=== PATIENT | male | born 1965 | race Caucasian/White ===

== ENCOUNTER 2016-09-28 13:18 | Emergency (ER) | payer OTHER ==
[2016-09-28] MEDS ORDERED: Albuterol/Ipratropium NEB.SOL* Albuterol 2.5 MG/Ipratropium 0.5 MG 3 ML ONE (13:51)
[2016-09-28] MEDS ORDERED: predniSONE TAB* 20 MG PO ONE (13:53)
[2016-09-28] MEDS ORDERED: Albuterol/Ipratropium NEB.SOL* Albuterol 2.5 MG/Ipratropium 0.5 MG 3 ML INH ONE ×2 (13:54→14:28)
--- NOTE | 2016-09-28 14:06 | ED ---
Susan Mendoza Alfonso, scribed for Zora Quintero MD on 09/28/16 at 1338 . Shortness of Breath - HPI Summary HPI Summary: This patient is a 50 year old M presenting to [facility] with a chief complaint of SOB since two weeks ago. Pt states has COPD and is out of his mdi and his nebulizer is not functioning and he has been unable to get an Rx from PCP for a new one. The patient rates the pain 0/10 in severity. Symptoms aggravated by getting sick and alleviated by nothing. Patient reports productive coughing ( clear phlegm), and sore throat (scratchy). Patient denies fever. He states he is out of inhaler medication and was not able to get a nebulizer prescription due to PCP scheduling problems. Pt denies cp, abd pain. No nausea, vomiting, diarrhea. PMHx of COPD. Patients medication reviewed this visit. - History of Current Complaint Chief Complaint: EDShortnessOfBreath Time Seen by Provider: 09/28/16 13:28 Hx Obtained From: Patient Onset/Duration: Sudden Onset, Lasting Weeks - 2, Still Present Timing: Constant Current Severity: Moderate Alleviating Factors: Nothing Associated Signs & Symptoms: Cough (Productive) - Allergy/Home Medications Allergies/Adverse Reactions: Allergies Allergy/AdvReac Type Severity Reaction Status Date / Time Milk-related Compounds Allergy Severe Anaphylatic Verified 09/28/16 13:21 Shock Penicillins Allergy Unknown Unknown Verified 09/28/16 13:21 Reaction Details Bee Venom Allergy Anaphylatic Verified 09/28/16 13:21 Shock PMH/Surg Hx/FS Hx/Imm Hx Previously Healthy: Yes Endocrine/Hematology History: Denies: Hx Anticoagulant Therapy, Hx Diabetes, Hx Thyroid Disease Cardiovascular History: Denies: Hx Hypertension, Hx Pacemaker/ICD Respiratory History: Reports: Hx Asthma, Hx Chronic Obstructive Pulmonary Disease (COPD) GI History: Reports: Other GI Disorders History: Denies: Hx Renal Disease Neurological History: Denies: Hx Dementia, Hx Seizures Psychiatric History: Denies: Hx Substance Abuse - Immunization History Date of Tetanus Vaccine: UTD Infectious Disease History: Denies: Hx Hepatitis, Hx Human Immunodeficiency Virus (HIV), Traveled Outside the [place] in Last 30 Days - Family History Known Family History: Positive: Cardiac Disease - Social History Occupation: Unemployed Lives: With Family Alcohol Use: Occasionally Hx Substance Use: No Substance Use Type: Reports: None Hx Tobacco Use: Yes Smoking Status (MU): Former Smoker - Quit 7 months ago per 09/28/16 Review of Systems Negative: Fever Eyes: Negative Positive: Sore Throat Cardiovascular: Negative Positive: Shortness Of Breath, Cough - productive Gastrointestinal: Negative Genitourinary: Negative Musculoskeletal: Negative Skin: Negative Neurological: Negative Psychological: Normal All Other Systems Reviewed And Are Negative: Yes Physical Exam Triage Information Reviewed: Yes Vital Signs On Initial Exam: Initial Vitals Temp Pulse Resp BP Pulse Ox 97.4 F 84 20 131/100 96 09/28/16 13:21 09/28/16 13:21 09/28/16 13:21 09/28/16 13:21 09/28/16 13:21 Vital Signs Reviewed: Yes Appearance: Positive: Well-Appearing, No Pain Distress, Well-Nourished Skin: Positive: Warm Head/Face: Positive: Normal Head/Face Inspection Eyes: Positive: Normal, EOMI, ZENA ENT: Positive: Hearing grossly normal, Nasal congestion, TMs normal Neck: Positive: Supple, Nontender, No Lymphadenopathy Respiratory/Lung Sounds: Positive: Breath Sounds Present, Wheezes - scattered wheeze, speaking full sentences, no retractions Cardiovascular: Positive: Normal, RRR, Murmur Abdomen Description: Positive: Nontender, No Organomegaly, Soft Bowel Sounds: Positive: Present Musculoskeletal: Positive: Normal Neurological: Positive: Normal, Sensory/Motor Intact, Alert, Oriented to Person Place, Time Psychiatric: Positive: Normal AVPU Assessment: Alert - Dale Coma Scale Best Eye Response: 4 - Spontaneous Best Motor Response: 6 - Obeys Commands Best Verbal Response: 5 - Oriented Diagnostics - Vital Signs Vital Signs Temp Pulse Resp BP Pulse Ox 09/28/16 13:21 97.4 F 84 20 131/100 96 - Laboratory Lab Statement: Any lab studies that have been ordered have been reviewed, and results considered in the medical decision making process. - Radiology CXR Radiology Interpretation Completed By: Radiologist - Stigmata of obstructive lung disease. No acute pulmonary or cardiac process evident. - EKG 1343 Cardiac Rate: NL - BPM 73 EKG Rhythm: Sinus Rhythm EKG Interpretation: NAD Re-Evaluation - Re-Evaluation First Eval Re-Evaluation Time: 14:30 Change: Improved - Pt markedly improved. No wheeze states feels better will d/c with Rx pred, MDI, nebulizer Course/Dx - Course Assessment/Plan: Pt presents with wheeze, cough with yellow sputum and request for medication refill albuterol MDI. Pt with diffuse wheezing on exam, but otherwise well appearing. Will give nebs. cxr. pred. reassess - Diagnoses Provider Diagnoses: COPD (chronic obstructive pulmonary disease) Discharge - Discharge Plan Condition: Stable Disposition: HOME Prescriptions: Albuterol 2.5MG/3ML (0.083%)* [Ventolin 2.5 MG/3 ML NEB.JAYDON*] 2.5 mg INH Q4H # 30 neb.jaydon Albuterol HFA INHALER* [Ventolin HFA Inhaler*] 1 puff INH Q4H PRN #1 mdi PRN Reason: wheeze Nebulizers [Nebulizer] 1 mis INH Q6HR #1 mis Nebulizers [Nebulizer] 1 mis INH Q6HR #1 mis predniSONE TAB* [Deltasone TAB*] 50 mg PO DAILY #4 tab Patient Education Materials: COPD (Chronic Obstructive Pulmonary Disease) (ED) Referrals: Venkat Fabian MD [Primary Care Provider] - Additional Instructions: - Stay well hydrated. Drink plenty of non-alcoholic, non-caffinated beverages - Take prednisone once daily as prescribed starting tomorrow - Use albuterol (nebulizer or puffer/inhaler) every 4 hours as needed for wheezing - Schedule a follow-up appointment with your primary doctor or your new provider. Call your doctor or return with questions or concerns The documentation as recorded by the Susan myers Alfonso accurately reflects the service I personally performed and the decisions made by , Zora Quintero MD.
--- NOTE | 2016-09-28 14:35 | RAD ---
INDICATION: 2 months productive cough. Shortness of breath. History of tobacco use. COMPARISON: January 27, 2016 chest radiograph and May 23, 2015 CT. TECHNIQUE: Dual energy PA and routine lateral views of the chest were obtained. REPORT: Mildly increased lung volumes. Patchy rarefaction of the mid to upper lung zone interstitial markings corresponding with emphysema on prior CT. No alveolar consolidation, focal pulmonary lesion, pleural effusion, pneumothorax. The heart, pulmonary vasculature, and mediastinal contours are unremarkable. Mild thoracic degenerative spondylosis. No suspicious focal osseous lesions evident. IMPRESSION: Stigmata of obstructive lung disease. No acute pulmonary or cardiac process evident.
[2016-09-28 15:28] VITALS: BP 119/79
== END 2016-09-28 15:30 | disposition home or self-care (01) ==
LOC: ED 13:18
DX: J44.9 Chronic obstructive pulmonary disease, unspecified (principal); R06.02 Shortness of breath; R05 Cough; J02.9 Acute pharyngitis, unspecified; Z87.09 Personal history of other diseases of the respiratory system; Z87.891 Personal history of nicotine dependence
CPT/HCPCS: 71020; 93005; 99282; A9270-GY; J7512

== ENCOUNTER 2016-11-06 16:31 | Emergency (ER) | payer OTHER ==
[2016-11-06] MEDS ORDERED: Ibuprofen TAB* 600 MG PO ONE (17:37)
[2016-11-06 18:34] VITALS: BP 127/78
--- NOTE | 2016-11-06 18:42 | ED ---
Throat Pain/Nasal Congestion - HPI Summary HPI Summary: 50M presents with left upper dental pain for 2 days. He denies any fever. He denies any swelling around his eyes. He denies any pain with eye movement. denies any fever. has been taking ibuprofen without relief. has not seen dentist in 10 years. - History of Current Complaint Chief Complaint: UCDentalProblem Time Seen by Provider: 11/06/16 18:33 - Allergies/Home Medications Allergies/Adverse Reactions: Allergies Allergy/AdvReac Type Severity Reaction Status Date / Time Milk-related Compounds Allergy Severe Anaphylatic Verified 11/06/16 16:45 Shock Penicillins Allergy Unknown Unknown Verified 11/06/16 16:45 Reaction Details Bee Venom Allergy Anaphylatic Verified 11/06/16 16:45 Shock PMH/Surg Hx/FS Hx/Imm Hx Endocrine/Hematology History: Denies: Hx Anticoagulant Therapy, Hx Diabetes, Hx Thyroid Disease Cardiovascular History: Denies: Hx Hypertension, Hx Pacemaker/ICD Respiratory History: Reports: Hx Asthma, Hx Chronic Obstructive Pulmonary Disease (COPD) GI History: Reports: Other GI Disorders History: Denies: Hx Renal Disease Neurological History: Denies: Hx Dementia, Hx Seizures Psychiatric History: Denies: Hx Substance Abuse - Immunization History Date of Tetanus Vaccine: UTD Infectious Disease History: No Infectious Disease History: Denies: Hx Hepatitis, Hx Human Immunodeficiency Virus (HIV), Traveled Outside the [place] in Last 30 Days - Family History Known Family History: Positive: Cardiac Disease - Social History Alcohol Use: None Hx Substance Use: No Substance Use Type: Reports: None Hx Tobacco Use: Yes Smoking Status (MU): Current Every Day Smoker Type: Cigarettes Review of Systems Positive: Dental Pain Negative: Chest Pain Negative: Shortness Of Breath All Other Systems Reviewed And Are Negative: Yes Physical Exam Triage Information Reviewed: Yes Vital Signs On Initial Exam: Initial Vitals Temp Pulse Resp BP Pulse Ox 97.5 F 76 18 130/80 99 11/06/16 16:42 11/06/16 16:42 11/06/16 16:42 11/06/16 16:42 11/06/16 16:42 Vital Signs Reviewed: Yes Appearance: Positive: Pain Distress Skin: Positive: Warm, Dry Head/Face: Positive: Normal Head/Face Inspection Eyes: Positive: Normal, EOMI, ZENA, Conjunctiva Clear ENT: Positive: Normal ENT inspection, Pharynx normal, TMs normal Dental: Positive: Percussion Tenderness @ - 16, Abscess @ - 16 Neck: Positive: Supple, Nontender, No Lymphadenopathy Respiratory/Lung Sounds: Positive: Clear to Auscultation, Breath Sounds Present Cardiovascular: Positive: Normal, RRR Diagnostics - Vital Signs Vital Signs Temp Pulse Resp BP Pulse Ox 11/06/16 18:29 98.0 F 65 16 127/78 96 11/06/16 16:42 97.5 F 76 18 130/80 99 - Laboratory Lab Statement: Any lab studies that have been ordered have been reviewed, and results considered in the medical decision making process. EENT Course/Dx - Course Course Of Treatment: 50M presents with left upper dental pain for 2 days. He denies any fever. He denies any swelling around his eyes. He denies any pain with eye movement. denies any fever. has been taking ibuprofen without relief. has not seen dentist in 10 years. on exam has abscess at 16. the area is not fluctant so can not be drained at this time. will place on clindamycin and gave pain medication. medications reviewed. will have follow up with primary about blood pressure. patient understands and agrees with plan. - Differential Diagnoses Differential Diagnoses: Dental Abscess, Dental Caries, Fractured Tooth - Diagnoses Provider Diagnoses: Dental abscess Discharge - Discharge Plan Condition: Good Disposition: HOME Prescriptions: Clindamycin HCl [Clindamycin 150 MG CAP*] 300 mg PO TID #60 cap oxyCODONE/Acetamin 5/325 MG* [Percocet 5/325 TAB*] 1 tab PO Q6H PRN #12 tab MDD 4 PRN Reason: Pain Patient Education Materials: Dental Abscess (ED) Referrals: Venkat Fabian MD [Primary Care Provider] - Additional Instructions: take antibiotics 3 tablets three times a day for 10 days Use normal pain medication Avoid hard, crunchy food until seen by dentist Return to ED if develop fever, shortness of breath, pain with eye movement Establish care with primary care physician and dentist as soon as possible Images - Images Dental: 1 - dental abscess
[2016-11-06] MEDS ORDERED: Clindamycin CAP* 150 MG PO ONE (18:53)
== END 2016-11-06 18:57 | disposition home or self-care (01) ==
LOC: UCEAST 16:31
DX: K04.7 Periapical abscess without sinus (principal); J44.9 Chronic obstructive pulmonary disease, unspecified; Z88.0 Allergy status to penicillin; F17.210 Nicotine dependence, cigarettes, uncomplicated
CPT/HCPCS: 99212; A9270-GY; G0463

== ENCOUNTER 2017-11-02 09:47 | Emergency (ER) | payer OTHER ==
--- NOTE | 2017-11-02 11:23 | RAD ---
INDICATION: Cough. COMPARISON: Comparison is made with a prior study from September 28, 2016. Correlation is also made with a prior study from September 28, 2016. TECHNIQUE: Dual-energy PA and lateral views of the chest were obtained. FINDINGS: The heart is within normal limits in size. Mediastinal and hilar contours appear within normal limits. There is a patchy infiltrate in the right lower lobe suggestive of pneumonia. In addition there is an 8 mm nodular density which projects lateral to the right hilum. This is not seen on the prior chest x-ray study. The results of this exam were discussed with referring clinician. IMPRESSION: 1. POSSIBLE PULMONARY NODULE IN THE RIGHT LUNG LATERAL TO THE RIGHT HILUM. RECOMMEND A CT OF THE CHEST WITH CONTRAST FOR FURTHER EVALUATION. 2. SMALL RIGHT LOWER LOBE INFILTRATES SUGGESTIVE OF PNEUMONIA.
[2017-11-02] MEDS ORDERED: Albuterol/Ipratropium NEB.SOL* Albuterol 2.5 MG/Ipratropium 0.5 MG 3 ML INH ONE ×2 (11:37→11:38)
[2017-11-02] MEDS ORDERED: Azithromycin IV(*) 500 MG in NS 0.9% 250 ML* 250 ML IVPB ONE (11:37)
[2017-11-02] MEDS ORDERED: methylPREDNISolone 125 MG* 2 ML VIAL IV ONE (11:37)
[2017-11-02] MEDS ORDERED: cefTRIAXone(*) 2 GM in NS 0.9% 100 ML* 100 ML IVPB ONE (11:37)
[2017-11-02] MEDS ORDERED: Ibuprofen TAB* 600 MG PO ONE (11:53)
[2017-11-02 12:13] LABS: Hematocrit 46 % (42-52); Hemoglobin 16.1 g/dl (14.0-18.0); Mean Corpuscular HGB Conc 35 g/dl (31-36); Mean Corpuscular Hemoglobin 32 pg (27-31); Mean Corpuscular Volume 92 fL (80-94); Mean Platelet Volume 8.4 um3 (7.4-10.4); Platelet Count 223 10^3/ul (150-450); Red Blood Count 5.04 10^6/ul (4.00-5.40); Red Cell Distribution Width 13 % (10.5-15); White Blood Count 15.3 10^3/ul (3.5-10.8)
--- NOTE | 2017-11-02 12:16 | ED ---
Influenza-Like Illness - HPI Summary HPI Summary: This patient is a 51 year old M presenting to [facility] accompanied by his with a chief complaint of diffuse myalgia and cramping since 10/30/17. He endorses arthralgia, weakness, fatigue, hypersomnia, chills, diaphoresis, productive cough (clear/yellow sputum), a resolved sore throat, SOB, back pain, rhinorrhea (for 2 weeks), and a diffuse erythematous rash, which he attributes to a flea infestation in his house. Pt endorses drinking 1 gallon of water a day with no sx alleviation. He denies fever, CP, ear ache, abd pain, urinary sx , recent significant weight change, and recent exposure to ill people. PMHx COPD ; he endorses using his inhaler 20x a day since sx onset, but usually only uses it 4 or 5x a day before sx onset. Pt smokes. He denies having received his flu shot yet this year, and denies PMHx PE and DVT. - History of Current Complaint Chief Complaint: EDGeneral Time Seen by Provider: 11/02/17 10:49 Hx Obtained From: Patient Onset/Duration: Sudden Onset, Lasting Days, Still Present Severity: Moderate Associated Signs & Symptoms: Myalgia, Cough, Sore Throat - resolved, Nasal Congestion - rhinorrhea Related Hx: Smoking - Allergy/Home Medications Allergies/Adverse Reactions: Allergies Allergy/AdvReac Type Severity Reaction Status Date / Time MS Milk-related Compounds Allergy Severe Anaphylatic Verified 11/02/17 10:13 [Milk-related Compounds] Shock MS Penicillins [Penicillins] Allergy Unknown Unknown Verified 11/02/17 10:13 Reaction Details MS Bee Venom Allergy Anaphylatic Verified 11/02/17 10:13 Shock PMH/Surg Hx/FS Hx/Imm Hx Endocrine/Hematology History: Denies: Hx Anticoagulant Therapy, Hx Diabetes, Hx Thyroid Disease Cardiovascular History: Denies: Hx Hypertension, Hx Pacemaker/ICD Respiratory History: Reports: Hx Asthma, Hx Chronic Obstructive Pulmonary Disease (COPD) GI History: Reports: Other GI Disorders History: Denies: Hx Renal Disease Sensory History: Reports: Hx Contacts or Glasses Denies: Hx Legally Blind, Hx Deafness Opthamlomology History: Reports: Hx Contacts or Glasses Denies: Hx Legally Blind EENT History: Denies: Hx Deafness Neurological History: Denies: Hx Dementia, Hx Seizures Psychiatric History: Denies: Hx Schizophrenia, Hx Substance Abuse - Immunization History Date of Tetanus Vaccine: UTD Immunizations Up to Date: Yes Infectious Disease History: No Infectious Disease History: Denies: Hx Hepatitis, Hx Human Immunodeficiency Virus (HIV), Traveled Outside the [place] in Last 30 Days - Family History Known Family History: Positive: Cardiac Disease - Social History Lives: With Family Alcohol Use: None Hx Substance Use: No Substance Use Type: Reports: None Hx Tobacco Use: Yes Smoking Status (MU): Current Every Day Smoker Type: Cigarettes Review of Systems Positive: Chills, Fatigue - w/ hypersomnia, Skin Diaphoresis. Negative: Fever Negative: Erythema Positive: Sore Throat - resolved. Negative: Ear Ache Negative: Chest Pain Positive: Shortness Of Breath, Cough - productive Negative: Abdominal Pain, Vomiting, Nausea Negative: dysuria, hematuria Positive: Arthralgia, Myalgia. Negative: Edema Positive: Rash - from fleas Neurological: Other - NEGATIVE: Dizziness Positive: Weakness All Other Systems Reviewed And Are Negative: Yes Physical Exam - Summary Physical Exam Summary: Constitutional: Well-developed, Well-nourished, Alert. (-) Distressed. Temperature 99.6 in room. Skin: Warm, Dry. Small punctate red rolon on his arms and legs which he attributes to fleas. HENT: Normocephalic; Atraumatic Eyes: Conjunctiva normal Neck: Musculoskeletal ROM normal neck. (-) JVD, (-) Stridor, (-) Tracheal deviation Cardio: Rhythm regular, rate normal, Heart sounds normal; Intact distal pulses; The pedal pulses are 2+ and symmetric. Radial pulses are 2+ and symmetric. (-) Murmur Pulmonary/Chest wall: Effort normal. (-) Respiratory distress, (-) Wheezes, (-) Rales. Diminished breath sounds bilaterally. Abd: Soft, (-) epigastric tenderness, (-) Distension, (-) Guarding, (-) Rebound Musculoskeletal: (-) Edema Lymph: (-) Cervical adenopathy Neuro: Alert, Oriented x3 Psych: Mood and affect Normal Triage Information Reviewed: Yes Vital Signs On Initial Exam: Initial Vitals Temp Pulse Resp BP Pulse Ox 97.9 F 91 19 119/76 99 11/02/17 09:56 11/02/17 09:56 11/02/17 09:56 11/02/17 09:56 11/02/17 09:56 Vital Signs Reviewed: Yes Diagnostics - Vital Signs Vital Signs Temp Pulse Resp BP Pulse Ox 11/02/17 12:00 81 91 11/02/17 11:09 80 24 112/81 93 11/02/17 11:03 13 11/02/17 10:39 84 22 119/84 93 11/02/17 10:09 88 22 132/83 92 11/02/17 10:08 7 11/02/17 09:56 97.9 F 91 19 119/76 99 - Laboratory Lab Results: Lab Results 11/02/17 Range/Units 11:07 Influenza A (Rapid) Negative (Negative) Influenza B (Rapid) Negative (Negative) Result Diagrams: 11/02/17 11:37 11/02/17 11:37 Lab Statement: Any lab studies that have been ordered have been reviewed, and results considered in the medical decision making process. - Radiology CXR Xray Interpretation: Positive (See Comments) Radiology Interpretation Completed By: Radiologist - 1. POSSIBLE PULMONARY NODULE IN THE RIGHT LUNG LATERAL TO THE RIGHT HILUM. RECOMMEND A CT OF THE CHEST WITH CONTRAST FOR FURTHER EVALUATION. 2. SMALL RIGHT LOWER LOBE INFILTRATES SUGGESTIVE OF PNEUMONIA. Dr. Hernandez has reviewed this report. - CT Chest CT Interpretation: Positive (See Comments) CT Interpretation Completed By: Radiologist - 1. PATCHY NODULAR INFILTRATES IN THE RIGHT UPPER, MIDDLE AND LOWER LOBES MOST CONSISTENT WITH PNEUMONIA. 2. A COMPONENT OF THE INFILTRATE APPEARS TO ACCOUNT FOR THE NODULAR DENSITY NOTED ON THE PRIOR CHEST X-RAY STUDY. RECOMMEND FOLLOW UP CHEST X-RAY STUDIES TO RESOLUTION. 3. MULTIPLE SMALL PULMONARY NODULES UNCHANGED. RECOMMEND A FOLLOW- UP LOW-DOSE NONCONTRAST CT OF THE CHEST IN ONE YEARS TIME. 4. MILD TO MODERATE EMPHYSEMATOUS CHANGE. Dr. Hernandez has reviewed this report. Flu Symptom Course/Dx - Course Course Of Treatment: A 51-year-old M presents to the ED with a CC of flu-like sx for 3 days. (+) diffuse myalgia, diffuse cramping, arthralgia, weakness, fatigue, hypersomnia, chills, diaphoresis, cough, SOB, back pain, rhinorrhea ( for 2 weeks), and a diffuse erythematous rash, which he attributes to a flea infestation in his house. (-) fever, CP, ear ache, abd pain, urinary sx, recent significant weight change, and recent exposure to ill people. PMHx COPD, asthma. Denies flu shot this year. He notes using his inhaler 20x a day since sx onset, whereas he usually uses it 4 to 5 times a day. A CXR reveals 1. POSSIBLE PULMONARY NODULE IN THE RIGHT LUNG LATERAL TO THE RIGHT HILUM. 2. SMALL RIGHT LOWER LOBE INFILTRATES SUGGESTIVE OF PNEUMONIA. A CT chest revealed 1. PATCHY NODULAR INFILTRATES IN THE RIGHT UPPER, MIDDLE AND LOWER LOBES MOST CONSISTENT WITH PNEUMONIA. 2. A COMPONENT OF THE INFILTRATE APPEARS TO ACCOUNT FOR THE NODULAR DENSITY NOTED ON THE PRIOR CHEST X-RAY STUDY. RECOMMEND FOLLOW UP CHEST X-RAY STUDIES TO RESOLUTION. 3. MULTIPLE SMALL PULMONARY NODULES UNCHANGED. RECOMMEND A FOLLOW-UP LOW-DOSE NONCONTRAST CT OF THE CHEST IN ONE YEARS TIME. 4. MILD TO MODERATE EMPHYSEMATOUS CHANGE. In the ED course, pt was given Azithromycin, solu-medrol, ibuprofen, ceftriaxone sodium, and albuterol. Pt's labs were nl except for high WBC, high MCH, low Na+, and low Cl-. Pt was (- ) for influenza. Ambulated, maintained sats at 91 %, dx community acquired PNA , f/u with care connections 1-2 days. - Diagnoses Provider Diagnoses: Community acquired pneumonia Discharge - Sign-Out/Discharge Documenting (check all that apply): Patient Departure - discharge - Discharge Plan Condition: Stable Disposition: HOME Patient Education Materials: Community Acquired Pneumonia (ED) Additional Instructions: Follow up with care connections in 1-2 days. Return to the emergency department for any new or worsening symptoms. - Attestation Statements Document Initiated by Scribe: Yes Documenting Scribe: Raheel Parker Provider For Whom Kendalle is Documenting (Include Credential): Dr. Sahil Hernandez MD Scribe Attestation: Raheel Mendoza scribed for Dr. Sahil Hernandez MD on 11/02/17 at 1606.
[2017-11-02 12:32] LABS: EGFR Non-African American 82.6 (>60)
[2017-11-02] MEDS ORDERED: Iohexol 300* (CONTRAST) 10 ML SDV IV ONE (13:13)
--- NOTE | 2017-11-02 14:13 | RAD ---
INDICATION: Lung mass, shortness of breath. COMPARISON: Comparison is made with a prior CT of the chest from December 31, 2016 and a prior chest x-ray study from November 02, 2017. TECHNIQUE: A CT scan of the chest was performed with intravenous contrast following intravenous injection of 80 ml of Omnipaque 300 nonionic contrast. Contiguous axial sections were obtained from the lung apices through the lung bases. Images were reconstructed in the coronal and sagittal planes. FINDINGS: LUNGS: There is mild/moderate centrilobular emphysematous change. There are scattered small pulmonary nodules measuring up to 3 mm in size which are unchanged from the prior exam. In addition there is a patchy nodular infiltrate involving the right upper, middle and lower lobes most consistent with pneumonia. The nodular component of the infiltrate likely accounts for the nodular density noted on the prior chest x-ray study. No pleural effusion is present. MEDIASTINUM: No significant enlarged mediastinal or hilar lymph nodes are seen. There is a small hiatal hernia. HEART: The heart is within normal limits in size. No pericardial effusion is present. THORACIC AORTA: The thoracic aorta is normal in caliber. There is mild calcific plaque present. ABDOMEN: No acute findings are seen on the visualized portion of the upper abdomen. There is fatty infiltration of the liver. BONES: No significant focal osseous abnormality is seen. IMPRESSION: 1. PATCHY NODULAR INFILTRATES IN THE RIGHT UPPER, MIDDLE AND LOWER LOBES MOST CONSISTENT WITH PNEUMONIA. 2. A COMPONENT OF THE INFILTRATE APPEARS TO ACCOUNT FOR THE NODULAR DENSITY NOTED ON THE PRIOR CHEST X-RAY STUDY. RECOMMEND FOLLOW UP CHEST X-RAY STUDIES TO RESOLUTION. 3. MULTIPLE SMALL PULMONARY NODULES UNCHANGED. RECOMMEND A FOLLOW-UP LOW-DOSE NONCONTRAST CT OF THE CHEST IN ONE YEARS TIME. 4. MILD TO MODERATE EMPHYSEMATOUS CHANGE.
[2017-11-02 16:32] VITALS: BP 118/71
== END 2017-11-02 16:30 | disposition home or self-care (01) ==
LOC: ED 09:47
DX: J18.9 Pneumonia, unspecified organism (principal); R91.8 Other nonspecific abnormal finding of lung field; J44.9 Chronic obstructive pulmonary disease, unspecified; F17.210 Nicotine dependence, cigarettes, uncomplicated; Z88.0 Allergy status to penicillin
CPT/HCPCS: 36415; 71046; 71260; 80053; 83605; 85027; 87040; 96365; 96366; 96375; 99284; A9270-GY; J0456; J0696; J2930; Q9967

== ENCOUNTER → 2018-02-18 00:20 | Emergency (ER) | payer OTHER ==
[~2018-02-18 00:20] MED LIST: Albuterol/Ipratropium NEB.SOL* Albuterol 2.5 MG/Ipratropium 0.5 MG 3 ML INH ONE; Albuterol/Ipratropium NEB.SOL* Albuterol 2.5 MG/Ipratropium 0.5 MG 3 ML ONE; Dexamethasone IV* 4 MG/ML 1 ML (4 MG) IM ONE; Dexamethasone IV* 4 MG/ML 5 ML VIAL (20 MG) ONE
[2018-02-18 01:17] LABS: ABS Basophils 0.1 10^3/ul (0-0.2); ABS Eosinophils 0.3 10^3/ul (0-0.6); ABS Lymphocytes 1.3 10^3/ul (1.0-4.8); ABS Monocytes 0.6 10^3/ul (0-0.8); ABS Neutrophils 5.7 10^3/ul (1.5-7.7); ABS Nucleated RBC 0 10^3/ul; Eosinophil % 3.7 %; Hematocrit 46 % (42-52); Hemoglobin 15.6 g/dl (14.0-18.0); Lymphocyte % 16.7 %; Mean Corpuscular HGB Conc 34 g/dl (31-36); Mean Corpuscular Hemoglobin 31 pg (27-31); Mean Corpuscular Volume 92 fL (80-94); Nucleated Red Blood Cells % 0.1; Platelet Count 211 10^3/ul (150-450); Red Blood Count 5.01 10^6/ul (4.00-5.40); Red Cell Distribution Width 13 % (10.5-15); White Blood Count 7.9 10^3/ul (3.5-10.8)
[2018-02-18 01:33] LABS: Albumin 4.2 g/dL (3.2-5.2); Albumin/Globulin Ratio 1.8 (1-3); C Reactive Protein 3.77 mg/L (<8.01); Calcium 9.1 mg/dL (8.6-10.3); EGFR Non-African American 88.6 (>60); Globulin 2.4 g/dL (2-4); Total Bilirubin 0.3 mg/dL (0.2-1.0); Total Protein 6.6 g/dL (6.4-8.9)
[2018-02-18 01:56] VITALS: BP 125/75
[2018-02-18 01:58] LABS: Potassium 3.9 mmol/L (3.5-5.0)
--- NOTE | 2018-02-18 12:47 | ED ---
Shortness of Breath - HPI Summary HPI Summary: Patient is a 52-year-old male with a history of COPD, heavy smoker presenting to the ED with acute onset SOB approximate 2 hours QUALITY INTERN. He states he felt as if this were "an allergic reaction." He took a Benadryl without relief. He endorses dysphasia, but denies any odynophagia. He states he has been drinking well, but has not tried to eat. He denies any fevers, sweats, chills. He has been seen in the ED for this multiple times in the past for generalized SOB. He has been using his at home nebulizer treatments and albuterol inhaler without relief so decided to come to the ED for further evaluation. He states he has not been sick otherwise. Approximately 1 hour QUALITY INTERN he lied down to go to sleep and immediately felt SOB and a tightness in his throat. After nebulizer treatment and Benadryl did not improve his symptoms, he came to the ED. He is feeling slightly improved on arrival, however continues to be SOB. He is currently not on antibiotics or steroids. He denies any other symptoms including chest pain. Denies cough, calf pain, edema. Denies any recent travel. No history of DVT or PE. - History of Current Complaint Chief Complaint: EDShortnessOfBreath Time Seen by Provider: 02/18/18 00:36 Hx Obtained From: Patient Onset/Duration: Sudden Onset Timing: Constant Current Severity: Moderate Dyspnea At: Rest Aggrevating Factors: Deep Breaths, Recumbent Position Alleviating Factors: Upright Position, Spontaneous Resolution - Risk Factors Pulmonary Embolism: Negative Cardiac: Negative Pseudomonas: Negative Tuberculosis: Negative - Allergy/Home Medications Allergies/Adverse Reactions: Allergies Allergy/AdvReac Type Severity Reaction Status Date / Time MS Milk-related Compounds Allergy Severe Anaphylatic Verified 02/18/18 00:32 [Milk-related Compounds] Shock MS Penicillins [Penicillins] Allergy Unknown Unknown Verified 02/18/18 00:32 Reaction Details MS Bee Venom Allergy Anaphylatic Verified 02/18/18 00:32 Shock PMH/Surg Hx/FS Hx/Imm Hx Previously Healthy: Yes Endocrine/Hematology History: Denies: Hx Anticoagulant Therapy, Hx Diabetes, Hx Thyroid Disease Cardiovascular History: Denies: Hx Hypertension, Hx Pacemaker/ICD Respiratory History: Reports: Hx Asthma, Hx Chronic Obstructive Pulmonary Disease (COPD) GI History: Reports: Other GI Disorders History: Denies: Hx Renal Disease Sensory History: Reports: Hx Contacts or Glasses Denies: Hx Legally Blind, Hx Deafness Opthamlomology History: Reports: Hx Contacts or Glasses Denies: Hx Legally Blind Neurological History: Denies: Hx Dementia, Hx Seizures Psychiatric History: Denies: Hx Schizophrenia, Hx Substance Abuse - Immunization History Date of Tetanus Vaccine: UTD Hx Pertussis Vaccination: No Immunizations Up to Date: Yes Infectious Disease History: No Infectious Disease History: Denies: Hx Hepatitis, Hx Human Immunodeficiency Virus (HIV), Traveled Outside the [place] in Last 30 Days - Family History Known Family History: Positive: Cardiac Disease - Social History Occupation: Employed Full-time Lives: With Family Alcohol Use: None Hx Substance Use: No Substance Use Type: Reports: None Hx Tobacco Use: Yes Smoking Status (MU): Current Every Day Smoker Type: Cigarettes Review of Systems Negative: Fever, Chills, Fatigue, Skin Diaphoresis Negative: Dental Pain, Sore Throat Negative: Palpitations, Chest Pain Positive: Shortness Of Breath. Negative: Cough Genitourinary: Negative Positive: no symptoms reported, see HPI Negative: Myalgia Skin: Negative All Other Systems Reviewed And Are Negative: Yes Physical Exam Triage Information Reviewed: Yes Vital Signs On Initial Exam: Initial Vitals Temp Pulse Resp BP Pulse Ox 98.3 F 102 18 107/80 95 02/18/18 00:30 02/18/18 00:30 02/18/18 00:30 02/18/18 00:30 02/18/18 00:30 Vital Signs Reviewed: Yes Appearance: Positive: Well-Appearing, Well-Nourished Skin: Positive: Warm, Skin Color Reflects Adequate Perfusion Head/Face: Positive: Normal Head/Face Inspection Eyes: Positive: EOMI, ZENA, Conjunctiva Clear Neck: Positive: Supple, No Lymphadenopathy Respiratory/Lung Sounds: Positive: Wheezes - bilaterally Cardiovascular: Positive: RRR, Pulses are Symmetrical in both Upper and Lower Extremities Musculoskeletal: Positive: Strength/ROM Intact Neurological: Positive: Speech Normal Psychiatric: Positive: Affect/Mood Appropriate AVPU Assessment: Alert Diagnostics - Vital Signs Vital Signs Temp Pulse Resp BP Pulse Ox 02/18/18 00:59 86 14 100 02/18/18 00:30 98.3 F 102 18 107/80 95 - Laboratory Lab Results: Lab Results 02/18/18 02/18/18 Range/Units 01:05 01:09 WBC 7.9 (3.5-10.8) 10^3/ul RBC 5.01 (4.00-5.40) 10^6/ul Hgb 15.6 (14.0-18.0) g/dl Hct 46 (42-52) % MCV 92 (80-94) fL MCH 31 (27-31) pg MCHC 34 (31-36) g/dl RDW 13 (10.5-15) % Plt Count 211 (150-450) 10^3/ul MPV 9.0 (7.4-10.4) fL Neut % (Auto) 71.3 % Lymph % (Auto) 16.7 % [place] % (Auto) 7.2 % Eos % (Auto) 3.7 % Baso % (Auto) 1.1 % Absolute Neuts (auto) 5.7 (1.5-7.7) 10^3/ul Absolute Lymphs (auto) 1.3 (1.0-4.8) 10^3/ul Absolute Monos (auto) 0.6 (0-0.8) 10^3/ul Absolute Eos (auto) 0.3 (0-0.6) 10^3/ul Absolute Basos (auto) 0.1 (0-0.2) 10^3/ul Absolute Nucleated RBC 0 10^3/ul Nucleated RBC % 0.1 Sodium 141 (135-145) mmol/L Potassium Pending Chloride 107 (101-111) mmol/L Carbon Dioxide 28 (22-32) mmol/L Anion Gap Pending BUN 18 (6-24) mg/dL Creatinine 0.90 (0.67-1.17) mg/dL Est GFR ( Amer) 107.2 (>60) Est GFR (Non-Af Amer) 88.6 (>60) BUN/Creatinine Ratio 20.0 (8-20) Glucose 123 H (70-100) mg/dL Calcium 9.1 (8.6-10.3) mg/dL Total Bilirubin 0.30 (0.2-1.0) mg/dL AST Pending ALT 29 (7-52) U/L Alkaline Phosphatase 53 (34-104) U/L C-Reactive Protein 3.77 (<8.01) mg/L Total Protein 6.6 (6.4-8.9) g/dL Albumin 4.2 (3.2-5.2) g/dL Globulin 2.4 (2-4) g/dL Albumin/Globulin Ratio 1.8 (1-3) Result Diagrams: 02/18/18 01:09 02/18/18 01:05 Lab Statement: Any lab studies that have been ordered have been reviewed, and results considered in the medical decision making process. Course/Dx - Course Course Of Treatment: On physical examination, patient is wheezing bilaterally, without rhonchorous sounds bilaterally. No pharyngeal erythema or swelling in the posterior pharynx. TMs without erythema. No rhinorrhea or conjunctival injection noted. DuoNeb given on arrival. Dexamethasone 10 mg IM given. Lab work obtained and is all WNL. Patient is feeling improved. He will be DC'd home with steroids 5 days. Chest x-ray obtained and read by myself, RIZWANA Gómez as no active acute cardiopulmonary disease. - Diagnoses Differential Diagnosis/HQI/PQRI: Positive: Bronchitis, Pneumonia Provider Diagnoses: Shortness of breath at rest Discharge - Sign-Out/Discharge Documenting (check all that apply): Patient Departure - Discharge Plan Condition: Stable Disposition: HOME Prescriptions: predniSONE TAB* [Deltasone TAB*] 50 mg PO DAILY #5 tab MDD 1 Patient Education Materials: COPD (Chronic Obstructive Pulmonary Disease) (ED) Referrals: Venkat Fabian MD [Primary Care Provider] - Additional Instructions: Prednisone once daily in the morning 5 days (start tomorrow AM) Nebulizer treatmennts as needed Albuterol inhaler as needed DO NOT SMOKE - Billing Disposition and Condition Condition: STABLE Disposition: Home
== END | disposition home or self-care (01) ==
LOC: ED 00:20
DX: R06.02 Shortness of breath (principal); J44.9 Chronic obstructive pulmonary disease, unspecified; F17.210 Nicotine dependence, cigarettes, uncomplicated
CPT/HCPCS: 36415; 71046; 80053; 85025; 86140; 96372; 96374; 99282; A9270-GY; J1100

== ENCOUNTER 2018-03-05 23:39 | Emergency (ER) | payer OTHER ==
[2018-03-06] MEDS ORDERED: predniSONE TAB* 20 MG PO ONE
[2018-03-06] MEDS ORDERED: Albuterol/Ipratropium NEB.SOL* Albuterol 2.5 MG/Ipratropium 0.5 MG 3 ML INH ONE
[2018-03-06 00:19] LABS: ABS Basophils 0.1 10^3/ul (0-0.2); ABS Eosinophils 0.3 10^3/ul (0-0.6); ABS Lymphocytes 1.4 10^3/ul (1.0-4.8); ABS Monocytes 0.6 10^3/ul (0-0.8); ABS Neutrophils 6.4 10^3/ul (1.5-7.7); ABS Nucleated RBC 0 10^3/ul; Eosinophil % 3.8 %; Hematocrit 47 % (42-52); Hemoglobin 16.2 g/dl (14.0-18.0); Lymphocyte % 15.6 %; Mean Corpuscular HGB Conc 34 g/dl (31-36); Mean Corpuscular Hemoglobin 32 pg (27-31); Mean Corpuscular Volume 92 fL (80-94); Mean Platelet Volume 8.4 fL (7.4-10.4); Nucleated Red Blood Cells % 0.1; Platelet Count 219 10^3/ul (150-450); Red Blood Count 5.12 10^6/ul (4.00-5.40); Red Cell Distribution Width 13 % (10.5-15); White Blood Count 8.7 10^3/ul (3.5-10.8)
[2018-03-06 00:33] LABS: Albumin 4.3 g/dL (3.2-5.2); Albumin/Globulin Ratio 1.7 (1-3); BUN/Creatinine Ratio 16.7 (8-20); C Reactive Protein 6.1 mg/L (<8.01); EGFR African American 99.5 (>60); EGFR Non-African American 82.3 (>60); Globulin 2.6 g/dL (2-4); Total Bilirubin 0.3 mg/dL (0.2-1.0); Total Protein 6.9 g/dL (6.4-8.9)
[2018-03-06] MEDS ORDERED: Benzonatate CAP* 100 MG PO ONE (00:52)
--- NOTE | 2018-03-06 01:23 | ED ---
Shortness of Breath - HPI Summary HPI Summary: Patient complains of progressive SOB with exertion and cough 3 days. History of COPD, no home O2, has nebulizers and inhalers at home. Denies fever, sore throat, SILVA, ear pain, CP, N/V/D, abdominal pain, change in urine, change in BM. Medical history COPD, asthma. Positive smoker. History of prior visit for same symptoms and 02/27/18. - History of Current Complaint Chief Complaint: EDShortnessOfBreath Time Seen by Provider: 03/05/18 23:52 Hx Obtained From: Patient Onset/Duration: Gradual Onset, Lasting Days Timing: Intermittent Episodes Lasting: Current Severity: Moderate Dyspnea At: Exertion Aggrevating Factors: Movement Associated Signs & Symptoms: Cough (Nonproductive) - Allergy/Home Medications Allergies/Adverse Reactions: Allergies Allergy/AdvReac Type Severity Reaction Status Date / Time MS Milk-related Compounds Allergy Severe Anaphylatic Verified 03/05/18 23:45 [Milk-related Compounds] Shock MS Penicillins [Penicillins] Allergy Unknown Unknown Verified 03/05/18 23:45 Reaction Details MS Bee Venom Allergy Anaphylatic Verified 03/05/18 23:45 Shock PMH/Surg Hx/FS Hx/Imm Hx Endocrine/Hematology History: Denies: Hx Anticoagulant Therapy, Hx Diabetes, Hx Thyroid Disease Cardiovascular History: Denies: Hx Hypertension, Hx Pacemaker/ICD Respiratory History: Reports: Hx Asthma, Hx Chronic Obstructive Pulmonary Disease (COPD) GI History: Reports: Other GI Disorders History: Denies: Hx Renal Disease Sensory History: Reports: Hx Contacts or Glasses Denies: Hx Legally Blind, Hx Deafness Opthamlomology History: Reports: Hx Contacts or Glasses Denies: Hx Legally Blind Neurological History: Denies: Hx Dementia, Hx Seizures Psychiatric History: Denies: Hx Schizophrenia, Hx Substance Abuse - Immunization History Date of Tetanus Vaccine: UTD Infectious Disease History: No Infectious Disease History: Denies: Hx Hepatitis, Hx Human Immunodeficiency Virus (HIV), Traveled Outside the [place] in Last 30 Days - Family History Known Family History: Positive: Cardiac Disease - Social History Alcohol Use: Rare Hx Substance Use: No Substance Use Type: Reports: None Hx Tobacco Use: Yes Smoking Status (MU): Current Every Day Smoker Type: Cigarettes Review of Systems Constitutional: Negative Eyes: Negative ENT: Negative Cardiovascular: Negative Positive: Shortness Of Breath, Cough Gastrointestinal: Negative Genitourinary: Negative Musculoskeletal: Negative Skin: Negative Neurological: Negative Psychological: Normal All Other Systems Reviewed And Are Negative: Yes Physical Exam Triage Information Reviewed: Yes Vital Signs On Initial Exam: Initial Vitals Temp Pulse Resp BP Pulse Ox 98.3 F 94 18 114/77 94 03/05/18 23:43 03/05/18 23:43 03/05/18 23:43 03/05/18 23:43 03/05/18 23:43 Vital Signs Reviewed: Yes Appearance: Positive: Well-Appearing Skin: Positive: Warm Head/Face: Positive: Normal Head/Face Inspection Eyes: Positive: Normal ENT: Positive: Normal ENT inspection Neck: Positive: Supple Respiratory/Lung Sounds: Positive: Wheezes - Bilaterally Cardiovascular: Positive: Normal Abdomen Description: Positive: Nontender Musculoskeletal: Positive: Normal Neurological: Positive: Normal Psychiatric: Positive: Normal AVPU Assessment: Alert - Dale Coma Scale Best Eye Response: 4 - Spontaneous Best Motor Response: 6 - Obeys Commands Best Verbal Response: 5 - Oriented Coma Scale Total: 15 Diagnostics - Vital Signs Vital Signs Temp Pulse Resp BP Pulse Ox 03/06/18 00:26 82 123/71 95 03/06/18 00:11 81 16 95 03/06/18 00:00 87 13 95 03/05/18 23:56 92 16 121/80 96 03/05/18 23:55 93 20 95 03/05/18 23:43 98.3 F 94 18 114/77 94 - Laboratory Lab Results: Lab Results 03/06/18 03/06/18 Range/Units 00:09 00:09 WBC 8.7 (3.5-10.8) 10^3/ul RBC 5.12 (4.00-5.40) 10^6/ul Hgb 16.2 (14.0-18.0) g/dl Hct 47 (42-52) % MCV 92 (80-94) fL MCH 32 H (27-31) pg MCHC 34 (31-36) g/dl RDW 13 (10.5-15) % Plt Count 219 (150-450) 10^3/ul MPV 8.4 (7.4-10.4) fL Neut % (Auto) 73.2 % Lymph % (Auto) 15.6 % [place] % (Auto) 6.7 % Eos % (Auto) 3.8 % Baso % (Auto) 0.7 % Absolute Neuts (auto) 6.4 (1.5-7.7) 10^3/ul Absolute Lymphs (auto) 1.4 (1.0-4.8) 10^3/ul Absolute Monos (auto) 0.6 (0-0.8) 10^3/ul Absolute Eos (auto) 0.3 (0-0.6) 10^3/ul Absolute Basos (auto) 0.1 (0-0.2) 10^3/ul Absolute Nucleated RBC 0 10^3/ul Nucleated RBC % 0.1 Sodium 139 (135-145) mmol/L Potassium 4.0 (3.5-5.0) mmol/L Chloride 105 (101-111) mmol/L Carbon Dioxide 27 (22-32) mmol/L Anion Gap 7 (2-11) mmol/L BUN 16 (6-24) mg/dL Creatinine 0.96 (0.67-1.17) mg/dL Est GFR ( Amer) 99.5 (>60) Est GFR (Non-Af Amer) 82.3 (>60) BUN/Creatinine Ratio 16.7 (8-20) Glucose 102 H (70-100) mg/dL Calcium 9.0 (8.6-10.3) mg/dL Total Bilirubin 0.30 (0.2-1.0) mg/dL AST 19 (13-39) U/L ALT 21 (7-52) U/L Alkaline Phosphatase 58 (34-104) U/L C-Reactive Protein 6.10 (<8.01) mg/L Total Protein 6.9 (6.4-8.9) g/dL Albumin 4.3 (3.2-5.2) g/dL Globulin 2.6 (2-4) g/dL Albumin/Globulin Ratio 1.7 (1-3) Result Diagrams: 03/06/18 00:09 03/06/18 00:09 Lab Statement: Any lab studies that have been ordered have been reviewed, and results considered in the medical decision making process. Course/Dx - Course Course Of Treatment: Patient complains of progressive SOB with exertion and cough 3 days. History of COPD, no home O2, has nebulizers and inhalers at home. Denies fever, sore throat, SILVA, ear pain, CP, N/V/D, abdominal pain, change in urine, change in BM. Medical history COPD, asthma. Positive smoker. History of prior visit for same symptoms and 02/27/18. Patient has are completed 3 duo nebs at home. Positive wheezes bilaterally. Vital signs within normal limits. DuoNeb 1. Prednisone 60 mg by mouth. Labs unremarkable. Chest x-ray no acute process. EKG sinus rhythm. O2 sats between 94-97% during entire stay in the ED. Rx for prednisone and Tessalon Perles. Continue to use inhaler and nebulizer. Patient understands and approves of plan. - Diagnoses Provider Diagnoses: COPD exacerbation, Cough Discharge - Sign-Out/Discharge Documenting (check all that apply): Patient Departure - Discharge Plan Condition: Stable Disposition: HOME Prescriptions: Benzonatate CAP* [Tessalon 100 MG CAP*] 200 mg PO TID 6 Days #40 cap predniSONE TAB* [Deltasone 20 MG TAB*] 40 mg PO DAILY 5 Days #10 tab Patient Education Materials: COPD (Chronic Obstructive Pulmonary Disease) (ED) Referrals: Venkat Fabian MD [Primary Care Provider] - Additional Instructions: Use home nebulizer and inhaler as directed. Take prednisone as prescribed. Return to the ED for any new or worsening symptoms. - Billing Disposition and Condition Condition: STABLE Disposition: Home
[2018-03-06 01:28] VITALS: BP 111/60
== END 2018-03-06 01:44 | disposition home or self-care (01) ==
LOC: ED 23:39
DX: J44.1 Chronic obstructive pulmonary disease with (acute) exacerbation (principal); R05 Cough; R06.2 Wheezing; F17.210 Nicotine dependence, cigarettes, uncomplicated
CPT/HCPCS: 36415; 71046; 80053; 85025; 86140; 93005; 99283; A9270-GY; J7512

== ENCOUNTER 2018-03-24 03:20 | Emergency (ER) | payer OTHER ==
[2018-03-24] MEDS ORDERED: Albuterol/Ipratropium NEB.SOL* Albuterol 2.5 MG/Ipratropium 0.5 MG 3 ML INH ONE (04:11)
[2018-03-24] MEDS ORDERED: predniSONE TAB* 20 MG PO ONE (04:11)
--- NOTE | 2018-03-24 04:25 | ED ---
Shortness of Breath - HPI Summary HPI Summary: This patient is a 53 year old male presenting to [facility] accompanied by family with a chief complaint of SOB since this morning. Patient notes that he has had SOB for over a month and a half. Today, patient presents to the ED because he woke up and could not breathe. Patient used his nebulizer twice while coming to the ED. The pain is rated 6/10 in severity. Symptoms aggravated by nothing. Symptoms alleviated by nothing. Patient additionally reports toothache, headache. Patient denies fever. Patient is still an active smoker. - History of Current Complaint Chief Complaint: EDShortnessOfBreath Time Seen by Provider: 03/24/18 04:01 Hx Obtained From: Patient Onset/Duration: Sudden Onset, Still Present Current Severity: Moderate Dyspnea At: Rest Aggrevating Factors: Nothing Alleviating Factors: Nothing Associated Signs & Symptoms: Negative - Fever - Allergy/Home Medications Allergies/Adverse Reactions: Allergies Allergy/AdvReac Type Severity Reaction Status Date / Time bee venom protein (honey bee) Allergy Anaphylatic Verified 03/24/18 03:24 Shock Milk Containing Products Allergy Anaphylatic Verified 03/24/18 03:24 Shock Penicillins Allergy Unknown Verified 03/24/18 03:24 Reaction Details PMH/Surg Hx/FS Hx/Imm Hx Previously Healthy: No Endocrine/Hematology History: Denies: Hx Anticoagulant Therapy, Hx Diabetes, Hx Thyroid Disease Cardiovascular History: Denies: Hx Hypertension, Hx Pacemaker/ICD Respiratory History: Reports: Hx Asthma, Hx Chronic Obstructive Pulmonary Disease (COPD) GI History: Reports: Other GI Disorders History: Denies: Hx Renal Disease Sensory History: Reports: Hx Contacts or Glasses Denies: Hx Legally Blind, Hx Deafness Opthamlomology History: Reports: Hx Contacts or Glasses Denies: Hx Legally Blind Neurological History: Denies: Hx Dementia, Hx Seizures Psychiatric History: Denies: Hx Schizophrenia, Hx Substance Abuse - Immunization History Date of Tetanus Vaccine: UTD Infectious Disease History: No Infectious Disease History: Denies: Hx Hepatitis, Hx Human Immunodeficiency Virus (HIV), Traveled Outside the [place] in Last 30 Days - Family History Known Family History: Positive: Cardiac Disease - Social History Lives: With Family Alcohol Use: Rare Hx Substance Use: No Substance Use Type: Reports: None Hx Tobacco Use: Yes Smoking Status (MU): Current Every Day Smoker Type: Cigarettes Review of Systems Negative: Fever Positive: Dental Pain Positive: Shortness Of Breath Positive: Headache All Other Systems Reviewed And Are Negative: Yes Physical Exam - Summary Physical Exam Summary: VITAL SIGNS: Reviewed. GENERAL: Patient is a well-developed and nourished male who is lying comfortable in the stretcher. Patient is not in any acute respiratory distress. HEAD AND FACE: No signs of trauma. No ecchymosis, hematomas or skull depressions. No sinus tenderness. EYES: PERRLA, EOMI x 2, No injected conjunctiva, no nystagmus. EARS: Hearing grossly intact. Ear canals and tympanic membranes are within normal limits. MOUTH: Oropharynx within normal limits. NECK: Supple, trachea is midline, no adenopathy, no JVD, no carotid bruit, no c- spine tenderness, neck with full ROM. CHEST: Symmetric, no tenderness at palpation LUNGS: Bilateral inspiratory and expiratory wheezes CVS: Regular rate and rhythm, S1 and S2 present, no murmurs or gallops appreciated. ABDOMEN: Soft, non-tender. No signs of distention. No rebound no guarding, and no masses palpated. Bowel sounds are normal. EXTREMITIES: FROM in all major joints, no edema, no cyanosis or clubbing. NEURO: Alert and oriented x 3. No acute neurological deficits. Speech is normal and follows commands. SKIN: Dry and warm Triage Information Reviewed: Yes Vital Signs On Initial Exam: Initial Vitals Temp Pulse Resp BP Pulse Ox 98.5 F 99 24 119/81 94 03/24/18 03:21 03/24/18 03:21 03/24/18 03:21 03/24/18 03:21 03/24/18 03:21 Vital Signs Reviewed: Yes Diagnostics - Vital Signs Vital Signs Temp Pulse Resp BP Pulse Ox 03/24/18 03:21 98.5 F 99 24 119/81 94 - Laboratory Lab Statement: Any lab studies that have been ordered have been reviewed, and results considered in the medical decision making process. Course/Dx - Course Course Of Treatment: This patient is a 53 year old male presenting to [facility] accompanied by family with a chief complaint of SOB since this morning. Patient notes that he has had SOB for over a month and a half. Today, patient presents to the ED because he woke up and could not breathe. Patient is still an active smoker. CXR reveals, per ED physician, hyperinflation, no acute infiltrate. Pending official report. In the ED course the patient was given Albuterol, Levaquin, Prednisone. Re-eval at 0521 reveals that patiet feels better. On repeat exam, his lungs sound clearer to auscultation. Patient will be discharged with a dx of COPD, bronchitis. Patient is advised to follow up with PCP in 2 days. The patient is agreeable with this plan. - Diagnoses Provider Diagnoses: COPD (chronic obstructive pulmonary disease), Bronchitis Discharge - Sign-Out/Discharge Documenting (check all that apply): Patient Departure Patient Received Moderate/Deep Sedation with Procedure: No - Discharge Plan Condition: Stable Disposition: HOME Prescriptions: Levofloxacin TAB* [Levaquin TAB*] 750 mg PO DAILY #7 tab predniSONE TAB* [Deltasone TAB*] 50 mg PO DAILY #7 tab Patient Education Materials: Acute Bronchitis (ED), COPD (Chronic Obstructive Pulmonary Disease) (ED) Referrals: Venkat Fabian MD [Primary Care Provider] - 2 Days Additional Instructions: Return to the ED for any new or worsening symptoms. - Billing Disposition and Condition Condition: STABLE Disposition: Home - Attestation Statements Document Initiated by Joaquínibe: Yes Documenting Scribe: Yudith Godinez Provider For Whom Fabienne is Documenting (Include Credential): Marcelle Ellis MD Scribe Attestation: Yudith Mendoza scribed for Marcelle Ellis MD on 03/26/18 at 1927. Scribe Documentation Reviewed: Yes Provider Attestation: The documentation as recorded by the Yudith myers accurately reflects the service I personally performed and the decisions made by Anna irwin MD Status of Scribe Document: Viewed
[2018-03-24] MEDS ORDERED: Levofloxacin TAB* 250 MG PO ONE (04:58)
[2018-03-24] MEDS: Albuterol 2.5 MG/3 ML NEB.SOL* (0.083%) INH SCH ×2 (05:10→05:41)
[2018-03-24 06:16] VITALS: BP 147/81
== END 2018-03-24 06:10 | disposition home or self-care (01) ==
LOC: ED 03:20
DX: J44.9 Chronic obstructive pulmonary disease, unspecified (principal); Z88.0 Allergy status to penicillin; Z91.030 Bee allergy status; Z91.011 Allergy to milk products; F17.210 Nicotine dependence, cigarettes, uncomplicated
CPT/HCPCS: 71045; 99282; A9270-GY; J7512

== ENCOUNTER 2018-04-02 03:49 | Emergency (ER) | payer OTHER ==
[2018-04-02] MEDS ORDERED: Albuterol/Ipratropium NEB.SOL* Albuterol 2.5 MG/Ipratropium 0.5 MG 3 ML INH ONE ×2 (04:27→05:43)
--- NOTE | 2018-04-02 05:29 | ED ---
Shortness of Breath - HPI Summary HPI Summary: Patient is a 52 y/o M presenting to ED with complaints of SOB, congestion suddenly onsetting at 0200 today. He states that he went to sleep at 0100 today , woke up with Sx. He notes Hx of COPD, states that he is still a current smoker. 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 He states that he felt congested and that he felt as if his throat had "swelled shut". He denies fever. No Hx of diabetes, HTN, cardiac disease. Patient last took steroids three days ago, he notes that he was at [facility] nine days ago for similar Sx as present episode. On triage, pain is denied, nothing is noted to aggravate/alleviate Sx. Home medications and allergies are reviewed. - History of Current Complaint Chief Complaint: EDShortnessOfBreath Time Seen by Provider: 04/02/18 04:18 Hx Obtained From: Patient Onset/Duration: Lasting Hours - onset 0200 today, Still Present Timing: Constant Current Severity: None - pain denied Aggrevating Factors: Nothing Alleviating Factors: Nothing Associated Signs & Symptoms: Nasal Congestion - Allergy/Home Medications Allergies/Adverse Reactions: Allergies Allergy/AdvReac Type Severity Reaction Status Date / Time bee venom protein (honey bee) Allergy Anaphylatic Verified 04/02/18 04:03 Shock Milk Containing Products Allergy Anaphylatic Verified 04/02/18 04:03 Shock Penicillins Allergy Unknown Verified 04/02/18 04:03 Reaction Details PMH/Surg Hx/FS Hx/Imm Hx Endocrine/Hematology History: Denies: Hx Anticoagulant Therapy, Hx Diabetes, Hx Thyroid Disease Cardiovascular History: Denies: Hx Hypertension, Hx Pacemaker/ICD Respiratory History: Reports: Hx Asthma, Hx Chronic Obstructive Pulmonary Disease (COPD) GI History: Reports: Other GI Disorders History: Denies: Hx Renal Disease Sensory History: Reports: Hx Contacts or Glasses Denies: Hx Legally Blind, Hx Deafness Opthamlomology History: Reports: Hx Contacts or Glasses Denies: Hx Legally Blind Neurological History: Denies: Hx Dementia, Hx Seizures Psychiatric History: Denies: Hx Schizophrenia, Hx Substance Abuse - Immunization History Date of Tetanus Vaccine: UTD Infectious Disease History: No Infectious Disease History: Denies: Hx Hepatitis, Hx Human Immunodeficiency Virus (HIV), Traveled Outside the [place] in Last 30 Days - Family History Known Family History: Positive: Cardiac Disease - Social History Alcohol Use: Rare Hx Substance Use: No Substance Use Type: Reports: None Hx Tobacco Use: Yes Smoking Status (MU): Current Every Day Smoker Type: Cigarettes Review of Systems Negative: Fever ENT: Other - POSITIVE - CONGESTION, CLAIMS THAT IT FELT IF HIS THROAT "SWELLED SHUT" Positive: Shortness Of Breath All Other Systems Reviewed And Are Negative: Yes Physical Exam - Summary Physical Exam Summary: Appearance: Well appearing, no pain distress Skin: warm, dry, reflects adequate perfusion Head/face: normal Eyes: EOMI, ZENA ENT: mucous membranes moist, no nasal discharge Neck: supple, non-tender Respiratory: diffuse expiratory wheezes, able to speak in complete sentences, no respiratory distress, patient is sitting in bed drinking coffee Cardiovascular: RRR, pulses symmetrical Abdomen: non-tender, soft Bowel Sounds: present Musculoskeletal: normal, strength/ROM intact Neuro: normal, sensory motor intact, A&Ox3 Triage Information Reviewed: Yes Vital Signs On Initial Exam: Initial Vitals Temp Pulse Resp BP Pulse Ox 98.1 F 91 18 112/76 95 04/02/18 04:01 04/02/18 04:01 04/02/18 04:01 04/02/18 04:01 04/02/18 04:01 Vital Signs Reviewed: Yes Diagnostics - Vital Signs Vital Signs Temp Pulse Resp BP Pulse Ox 04/02/18 04:12 88 127/85 94 04/02/18 04:01 98.1 F 91 18 112/76 95 - Laboratory Lab Statement: Any lab studies that have been ordered have been reviewed, and results considered in the medical decision making process. Re-Evaluation - Re-Evaluation 0543 Re-Evaluation Time: 05:43 Change: Improved Comment: Patient reports improvement, but notes Sx are still somewhat present. Additional breathing treatment and Solu-Medrol to be given, afterwards patient to be discharged. Patient is agreeable with this. Course/Dx - Course Course Of Treatment: Nurse's notes reviewed. Patient with history of COPD who continues to smoke presents with wheezing and shortness of breath. He received 2 wreathing treatments with subjective improvement. He was loaded with steroid. He required a third breathing treatment and also some IV magnesium but was doing much better. His O2 saturations were never a problem. He was discharged on steroids, antibiotics, decongestant and will do home breathing treatments every 4 hours until well. He'll schedule prompt follow-up with his primary care physician and cut back on his smoking. - Diagnoses Differential Diagnosis/HQI/PQRI: Positive: Asthma, Bronchitis, CHF, COPD Exacerbation, Pneumonia Provider Diagnoses: COPD exacerbation - Critical Care Time Critical Care Time: 30-74 min - 30 MINUTES, CCT is EXCLUSIVE of separately billable procedures. Discharge - Sign-Out/Discharge Documenting (check all that apply): Patient Departure - discharge Patient Received Moderate/Deep Sedation with Procedure: No - NO PROCEDURES DONE - Discharge Plan Condition: Improved Disposition: HOME Prescriptions: Doxycycline Monohydrate 100 mg PO BID #20 cap guaiFENesin [Mucinex] 600 mg PO BID #20 tab.er.12h predniSONE TAB* [Deltasone TAB*] 50 mg PO DAILY #6 tab Patient Education Materials: COPD (Chronic Obstructive Pulmonary Disease) (ED) Referrals: Venkat Fabian MD [Primary Care Provider] - Additional Instructions: Do not smoke. Humidifier while sleeping. Drink plenty of fluids. Return with fever, increased difficulty breathing, worse, new symptoms or other concerns. He is breathing treatments every 4 hours until well. - Billing Disposition and Condition Condition: IMPROVED Disposition: Home - Attestation Statements Document Initiated by Scribe: Yes Documenting Scribe: MANSI REY Provider For Whom Fabienne is Documenting (Include Credential): DAMIAN IRENE MD Scribe Attestation: MANSI Mendoza, scribed for DAMIAN IRENE MD on 04/02/18 at 0712. Scribe Documentation Reviewed: Yes Provider Attestation: The documentation as recorded by the MANSI myers accurately reflects the service I personally performed and the decisions made by me, DAMIAN IRENE MD Status of Scribe Document: Viewed
[2018-04-02] MEDS ORDERED: DOXYcycline CAP(*) 100 MG PO ONE (05:43)
[2018-04-02] MEDS ORDERED: Magnesium Sulfate 1 GM IV* 1 GM/100 ML BAG IV ONE (05:58)
[2018-04-02 06:04] VITALS: BP 108/77
== END 2018-04-02 06:20 | disposition home or self-care (01) ==
LOC: ED 03:49
DX: J44.1 Chronic obstructive pulmonary disease with (acute) exacerbation (principal); R06.02 Shortness of breath; R09.81 Nasal congestion; Z88.0 Allergy status to penicillin; F17.210 Nicotine dependence, cigarettes, uncomplicated
CPT/HCPCS: 96374; 99283; A9270-GY; J3475

== ENCOUNTER 2018-04-03 03:20 | Inpatient (IN) | payer OTHER ==
[2018-04-03] MEDS ORDERED: NS 0.9% 1000 ML** 1,000 ML IV ONE (03:25)
[2018-04-03] MEDS ORDERED: EPINEPHrine,Rac 2.25% NEB.SOL* 0.5 ML INH ONE (03:25)
[2018-04-03] MEDS ORDERED: Magnesium Sulfate 1 GM IV* 1 GM/100 ML BAG IV ONE (03:26)
--- NOTE | 2018-04-03 03:30 | ED ---
Shortness of Breath - HPI Summary HPI Summary: This patient is a 52 year old male brought in by ambulance to [facility] with a chief complaint of resp distress since 2 hours ago. Patient was seen last night for the same sx, but presents again today for sx return and exacerbation. Patient has a known hx of COPD and is a current smoker. Patient states that he has been wheezing for a week prior to sx. Patient was seen in the ED yesterday night for similar sx. Patient received several breathing treatments, steroids, and antibiotics. Patient states that he used a further 5 breathing treatments today. The pain is rated 0/10 in severity. Symptoms aggravated by nothing. Symptoms alleviated by nothing. Patient denies chest pain. - History of Current Complaint Hx Obtained From: Patient, EMS Onset/Duration: Sudden Onset, Lasting Weeks, Still Present Timing: Constant Aggrevating Factors: Nothing Alleviating Factors: Nothing Associated Signs & Symptoms: Negative, Cough (Nonproductive), Fever - Allergy/Home Medications Allergies/Adverse Reactions: Allergies Allergy/AdvReac Type Severity Reaction Status Date / Time bee venom protein (honey bee) Allergy Anaphylatic Verified 04/03/18 03:28 Shock Milk Containing Products Allergy Anaphylatic Verified 04/03/18 03:28 Shock Penicillins Allergy Unknown Verified 04/03/18 03:28 Reaction Details Home Medications: Home Medications Doxycycline Monohydrate 200 mg PO TID 04/03/18 [History Confirmed 04/03/18] Methylphenidate ER TAB* [Concerta ER TAB*] 18 mg PO DAILY 04/03/18 [History Confirmed 04/03/18] PMH/Surg Hx/FS Hx/Imm Hx Previously Healthy: No Endocrine/Hematology History: Denies: Hx Anticoagulant Therapy, Hx Diabetes, Hx Thyroid Disease Cardiovascular History: Denies: Hx Hypertension, Hx Pacemaker/ICD Respiratory History: Reports: Hx Asthma, Hx Chronic Obstructive Pulmonary Disease (COPD) GI History: Reports: Other GI Disorders History: Denies: Hx Renal Disease Sensory History: Reports: Hx Contacts or Glasses Denies: Hx Legally Blind, Hx Deafness Opthamlomology History: Reports: Hx Contacts or Glasses Denies: Hx Legally Blind Neurological History: Denies: Hx Dementia, Hx Seizures Psychiatric History: Denies: Hx Schizophrenia, Hx Substance Abuse - Immunization History Date of Tetanus Vaccine: UTD Infectious Disease History: Denies: Hx Hepatitis, Hx Human Immunodeficiency Virus (HIV) - Family History Known Family History: Positive: Cardiac Disease - Social History Lives: With Family Alcohol Use: Rare Hx Substance Use: No Substance Use Type: Reports: None Hx Tobacco Use: Yes Smoking Status (MU): Current Every Day Smoker Type: Cigarettes Review of Systems Negative: Fever Positive: Shortness Of Breath All Other Systems Reviewed And Are Negative: Yes Physical Exam - Summary Physical Exam Summary: Appearance: Speaks in short phrases. Increase work of breathing with moderate respiratory distress Skin: warm, mildly diaphoretic, reflects adequate perfusion Head/face: normal Eyes: EOMI, ZENA ENT: mucous membranes moist Neck: supple, non-tender Respiratory: Diffuse expiratory wheeze and prolonged expiratory phase Cardiovascular: Tachycardic but regular, pulses symmetrical Abdomen: non-tender, soft Bowel Sounds: present Musculoskeletal: strength/ROM intact, Clubbing of fingernails, no lower extremity edema Neuro: normal, sensory motor intact, A&Ox3 Triage Information Reviewed: Yes Vital Signs Reviewed: Yes Diagnostics - Laboratory Result Diagrams: 04/03/18 03:49 04/03/18 03:49 Lab Statement: Any lab studies that have been ordered have been reviewed, and results considered in the medical decision making process. - Radiology CXR Radiology Interpretation Completed By: ED Physician Summary of Radiographic Findings: CXR reveals, per ED physician, atelectasis, vs infiltrate in the left base, COPD. Pending official report. - EKG 0347 Cardiac Rate: Tachycardia EKG Rhythm: Sinus Tachycardia - 110 BPM Summary of EKG Findings: An EKG, taken 034, reveals Sinus Tachycardia (110 BPM) , normal axis, normal interval, normal ST, baseline artefact. Course/Dx - Course Course Of Treatment: Nurse's notes reviewed. Patient presents by EMS with respiratory distress/failure. He is transition from EMS CPAP to high velocity nasal insufflation CPAP by Vapotherm. He was placed on Max flow settings of 40 L. His O2 was titrated quickly down to 30%. He was given racemic epinephrine nebulization and intramuscular epinephrine with moderate improvement. His work of breathing has improved significantly on Vapotherm. The patient had been given DuoNeb by EMS and had taken 5 albuterol treatments by nebulization prior to coming. EMS gave dose of steroid today. He was also given IV fluids, IV magnesium and a dose of IV antibiotics. The hospitalist came and evaluated him in the ER and will admit him to the ICU. He has stabilized but is considered to be in guarded condition. - Diagnoses Differential Diagnosis/HQI/PQRI: Positive: CHF, COPD Exacerbation, Pneumonia, Pneumothorax Provider Diagnoses: COPD exacerbation, Respiratory acidosis, Respiratory failure, Tobacco abuse - Physician Notifications Discussed Care of Patient With: Soniya Hinton - Hospitalist Time Discussed With Above Provider: 03:48 - We discussed patient care with Dr. Hinton (Hospitalist) at 0348 and they agreed to admit the patient - Critical Care Time Critical Care Time: 30-74 min - CCT is EXCLUSIVE of separately billable procedures Discharge - Sign-Out/Discharge Documenting (check all that apply): Patient Departure Patient Received Moderate/Deep Sedation with Procedure: No - Discharge Plan Condition: Guarded Disposition: ADMITTED TO [facility] Referrals: Venkat Fabian MD [Primary Care Provider] - - Billing Disposition and Condition Condition: GUARDED Disposition: Admitted to [facility] - Attestation Statements Document Initiated by Kendalle: Yes Documenting Scribe: Yudith Godinez Provider For Whom Fabienne is Documenting (Include Credential): Ricci Berger MD Scribe Attestation: Yudith Mendoza scribed for Ricci Berger MD on 04/03/18 at 0442. Scribe Documentation Reviewed: Yes Provider Attestation: The documentation as recorded by the Yudith myers accurately reflects the service I personally performed and the decisions made by me, Ricci Berger MD Status of Scribe Document: Viewed
[2018-04-03] MEDS ORDERED: EPINEPHRINE 1 MG/ML 1 ML VIAL IM ONE (03:39)
[2018-04-03 03:49] LABS: Influenza A Molecular NEGATIVE (Negative); Influenza B Molecular NEGATIVE (Negative)
[2018-04-03 03:58] LABS: ABS Basophils 0.1 10^3/ul (0-0.2); ABS Eosinophils 0.6 10^3/ul (0-0.6); ABS Lymphocytes 2.2 10^3/ul (1.0-4.8); ABS Monocytes 0.9 10^3/ul (0-0.8); ABS Nucleated RBC 0 10^3/ul; Eosinophil % 4.7 %; Hematocrit 50 % (42-52); Hemoglobin 16.2 g/dl (14.0-18.0); Lymphocyte % 17.1 %; Mean Corpuscular HGB Conc 33 g/dl (31-36); Mean Corpuscular Hemoglobin 31 pg (27-31); Mean Corpuscular Volume 94 fL (80-94); Mean Platelet Volume 8.2 fL (7.4-10.4); Nucleated Red Blood Cells % 0; Platelet Count 235 10^3/ul (150-450); Red Blood Count 5.28 10^6/ul (4.00-5.40); Red Cell Distribution Width 14 % (10.5-15); White Blood Count 12.8 10^3/ul (3.5-10.8)
[2018-04-03 04:12] LABS: Albumin 4.3 g/dL (3.2-5.2); Albumin/Globulin Ratio 1.5 (1-3); BUN/Creatinine Ratio 18.2 (8-20); Calcium 9.1 mg/dL (8.6-10.3); EGFR African American 96.1 (>60); EGFR Non-African American 79.4 (>60); Globulin 2.8 g/dL (2-4); Potassium 4.1 mmol/L (3.5-5.0); Total Bilirubin 0.3 mg/dL (0.2-1.0); Total Protein 7.1 g/dL (6.4-8.9)
[2018-04-03] MEDS ORDERED: methylPREDNISolone 125 MG* 2 ML VIAL IV ONE (04:38)
[2018-04-03] MEDS ORDERED: ED Azithromycn 500 mg/250 ml 500 MG/250 ML PREMIX.SET IVPB ONE (04:42)
[2018-04-03] MEDS ORDERED: Albuterol 0.5% CONC NEB.SOL* 5 MG/ML 20 ml BOT INH ONE (04:44)
[2018-04-03] MEDS ORDERED: Albuterol/Ipratropium NEB.SOL* Albuterol 2.5 MG/Ipratropium 0.5 MG 3 ML ONE (04:48)
[2018-04-03] MEDS: Albuterol/Ipratropium NEB.SOL* Albuterol 2.5 MG/Ipratropium 0.5 MG 3 ML INH SCH ×7 (04:50→23:53)
[2018-04-03] MEDS ORDERED: Azithromycin IV(*) 500 MG in NS 0.9% 250 ML* 250 ML IVPB ONE (05:00)
[2018-04-03] MEDS ORDERED: Nicotine GUM* 2 MG PO PRN (05:13)
[2018-04-03] MEDS ORDERED: Acetaminophen TAB* 325 MG PO PRN (05:14)
[2018-04-03] MEDS ORDERED: NS 0.9% 1000 ML** 1,000 ML IV SCH (05:15)
[2018-04-03] MEDS ORDERED: Albuterol/Ipratropium NEB.SOL* Albuterol 2.5 MG/Ipratropium 0.5 MG 3 ML INH SCH (06:00)
--- NOTE | 2018-04-03 08:15 | HP ---
HISTORY AND PHYSICAL: DATE OF ADMISSION: 04/03/18 PRIMARY CARE PROVIDER: Venkat Fabian MD HEALTHCARE PROXY: Angela Stephenson, the patient's . CODE STATUS: Full. CHIEF COMPLAINT: Shortness of breath. HISTORY OF PRESENT ILLNESS: Obtained from patient, the patient's family, and review of medical charts. The patient is an adequate historian, although is with significant shortness of breath at the time of HPI. This is a 52-year-old man with past medical history of COPD, not on home oxygen or home control inhalers; tobacco use; who presents to the emergency room with shortness of breath over about 2 weeks, although worsening in the last 4 days. He actually presented to the emergency room on 04/02/18 with similar complaints , although not as severe and was started there on oral prednisone and azithromycin as he was failing doxycycline treatment as an outpatient. Furthermore, he was sent home with prescription for nebulizers and continued treatment at home. The patient and his returned to home and found that his shortness of breath continued to worsen over the course of the day. Prior to admission, he had used 5 nebulizer treatments at home before he ultimately called EMS secondary to him being able to take a full deep breath and beginning to feel very anxious as well as having symptomatic palpitations and dizziness. His also said that he looked pale at that time and thus they called for the ambulance. He endorses chest tightness without explicit chest pain. He does endorse a productive cough with white sputum. He denies fevers or chills. No sick contacts. He denies neuro, GI, , MSK, or other symptoms. He believes that about 3 weeks ago all of this started with upper respiratory like symptoms with a runny nose and sore throat and sinus congestion progressively caused worsening shortness of breath. EMERGENCY ROOM COURSE: Vital signs are stable on arrival; 132/110, heart rate 114, temperature 97.6. He initially arrived on BiPAP which was placed by EMS for increased work of breathing. He was transitioned to high flow nasal cannula and was satting 100% on the flow rate of 40 and FiO2 of 30. Labs were drawn and notable for a white blood cell count of 12.8. Unremarkable BMP. An ABG was done that showed pH of 7.27, pCO2 of 64, pO2 of 141, and 99% sat. He had a lactic acid drawn that was 2 and he had a flu swab that was negative. An EKG was done that showed sinus tachycardia without evidence of acute ischemia. A chest x-ray was done which showed hyperinflation and prominent vasculature, but no evidence of consolidation. In the emergency room, he received normal saline 1 L, mag 200 IV x1, epi 0.3 IM x1, racemic epi inhaled followed by DuoNeb. He received dexamethasone IV en route to the hospital via EMS. At the time of my exam, he is still requiring high flow nasal cannula after above interventions and the hospitalist team is asked to evaluate him for further eval and treatment. PAST MEDICAL HISTORY: 1. COPD. 2. Tobacco use. PAST SURGICAL HISTORY: Unknown. MEDICATIONS: 1. Albuterol 2 puffs inhaled q.4 hours p.r.n. for shortness of breath. 2. Benzonatate 200 mg p.o. t.i.d. 3. Doxycycline 200 mg p.o. t.i.d., although this was stopped on 04/02/18 and azithromycin 500 mg was given. 4. Nebulizer treatment with DuoNeb 1 inhalation q.6 hours p.r.n. for shortness of breath. 5. Prednisone 50 mg p.o. daily. 6. Guaifenesin 600 mg p.o. b.i.d. ALLERGIES: PENICILLIN. FAMILY HISTORY: His mother is and had a history of liver disease. His father is with unknown medical history. SOCIAL HISTORY: He has a [id number] history and currently smokes 4 to 5 cigarettes per day. He has scant alcohol use and denies history of illicit substance use. He is a facf-yr-ouit dad who lives at home with his and family. REVIEW OF SYSTEMS: Constitutional: Negative for fevers, chills, or malaise. HEENT: Negative for vision changes, positive for headaches, and negative for dysphagia. Cardiovascular: Negative for chest pain, palpitations, or orthopnea. Respiratory: Positive for shortness of breath, positive for cough, and positive for some mild pleuritic chest pain, particularly with coughing. GI : Negative for nausea, vomiting, diarrhea, or abdominal pain. : Negative for dysuria or hematuria. Musculoskeletal: Does endorse mild myalgias and arthralgias. Unchanged from prior. Skin: Denies rashes or lesions. Neurologic : Denies focal weakness or numbness or confusion. Psychiatric: Denies depression or anxiety. PHYSICAL EXAMINATION GENERAL: This is a well-developed, well-nourished obese man sitting in bed with a mild increased work of breathing and respiratory rate in the high 20s. He does get short of breath after even brief sentences and can only answer in 1 word responses to my questions. VITAL SIGNS: At the time of physical exam, the patient's vital signs are 134/98 , pulse rate sinus at 95, respiratory rate between 28 and 32, oxygen saturation is 100% on high-flow nasal cannula. HEENT: Dry mucous membranes. Oropharynx clear. Pupils are equal and reactive to light. Sclerae anicteric. NECK: He has no cervical lymphadenopathy or supraclavicular lymphadenopathy. RESPIRATORY: He has poor air movement in bilateral lower posterior lung aiken and diffuse inspiratory and expiratory wheeze to middle and upper lung aiken. No clear consolidation or rhonchi or crackles observed. CARDIAC: He has distant heart sounds, but has appreciable S1 and S2 with no clear murmurs, rubs, or gallops. GI: His belly is soft, nontender, nondistended with normoactive bowel sounds in all 4 quadrants. No significant hepatosplenomegaly. SKIN: He has no evidence of rashes or lesions. MUSCULOSKELETAL: He moves all 4 extremities freely without any restricted range of motion. EXTREMITIES: He has 1+ nonpitting edema to bilateral shins at the lower extremities. NEUROLOGIC: His cranial nerves II through XII are intact with no focal deficits. LABORATORY DATA: The patient has a white blood cell count of 12.8, hemoglobin of 16.2, hematocrit of 50, and platelets 235,000. Blood gas was done which showed pH of 7.27, pCO2 of 65, pO2 of 141. ABG: oxygen saturation 99.3. Chemistry showed sodium 139, potassium 4.1, chloride 103, carbon dioxide 29, BUN 18, creatinine 0.99, glucose 126. LFTs: AST 26, ALT 33, alkaline phosphatase 52. Influenza swab was done which was negative. IMAGING: Imaging was done including a chest x-ray that showed hyperinflation of lungs with prominent vasculature with no evidence of consolidation. EKG was done that showed sinus tachycardia with no evidence of acute ischemia. Films and EKG were reviewed by myself. ASSESSMENT AND PLAN: This is a 52-year-old man with a past medical history of chronic obstructive pulmonary disease, not on home oxygen or control inhalers; tobacco use; who presents to the emergency room with shortness of breath for the last 48 hours in the subacute setting of worsening shortness of breath x3 weeks. He was found to have a chronic obstructive pulmonary disease exacerbation most likely secondary to upper respiratory infection without evidence of pneumonia. 1. Chronic obstructive pulmonary disease exacerbation, severe. At this time, we will admit to intensive care unit for continued treatment with high-flow nasal cannula to help reduce the burden of his work of breathing. We will start Solu- Medrol 40 mg IV q.8 hours starting 8 hours of his last steroid dose which was given en route to the emergency room. Azithromycin 250 mg IV for an additional 4 days as he did get 500 mg x1 on 04/02/18 for the antiinflammatory properties of this antibiotic in the setting of chronic obstructive pulmonary disease exacerbation. DuoNeb around the clock q.4 hours while awake. Mometasone -formoterol will be started. If the patient does not improve, may need BiPAP. 2. Tobacco use. Offered nicotine replacement therapy. 3. FEN. Unrestricted diet. 4. DVT prophylaxis. He is on subcu heparin q.8 hours. 5. Disposition. At this time, he will be transferred to the ICU for high-flow nasal cannula and expect to be managed by the hospitalist. He will be stable for transfer to the floor when weaned to regular nasal cannula. 6. Full code. Plan of care was discussed with the patient and his family and they are in agreement. TIME SPENT: 40 minutes were spent in the planning of this admission and execution of history and physical with over half of that spent directly at the bedside with the patient providing direct patient care. [id number]/CPS #: [id number] ANDRES
[2018-04-03] MEDS: guaiFENesin ER TAB 600 MG PO SCH ×2 (08:29→21:22)
[2018-04-03] MEDS: Heparin VIAL(*) 5000 UNITS/ML VIAL (FIVE THOUSAND) SUBCUT SCH ×3 (08:29→21:23)
[2018-04-03] MEDS: Mometasone/Formoter 200/5 MDI INH SCH ×2 (09:16→20:03)
--- NOTE | 2018-04-03 10:25 | PN ---
Hospitalist Progress Note Date of Service: 04/03/18 I have seen and examined Juan and assume his care today. He was sleeping when I went to examine him and woke to voice. His had just arrived. He says he is feeling much better than last night. He is not short of breath at rest. Has not tried to walk yet. His agrees he looks much better. He remains on high flow nasal cannula. On exam, he is comfortable, speaking in full sentences, and has no accessory respiratory muscle use. His lungs have diffuse expiratory wheezing, scattered rhonchi, and poor air movement. He has 2+ edema in his legs. A: 52 year old man with history of COPD and tobacco use who presented to the ED with worsening shortness of breath and was found to be in a copd exacerbation requiring vapotherm for work of breathing and for hypoxia. He is improving. P: Continue azithromycin, duonebs, solumedrol. Sputum and blood cultures are pending. Will add urine antigens.
[2018-04-03] MEDS: methylPREDNISolone SOD 40 MG* 1 ML VIAL IV SCH ×2 (11:37→16:54)
[2018-04-04] MEDS ORDERED: LORazepam TAB(*) 0.5 MG PO PRN (00:46)
[2018-04-04] MEDS: methylPREDNISolone SOD 40 MG* 1 ML VIAL IV SCH ×3 (01:05→21:25)
[2018-04-04] MEDS: Albuterol/Ipratropium NEB.SOL* Albuterol 2.5 MG/Ipratropium 0.5 MG 3 ML INH SCH ×4 (03:04→15:24)
[2018-04-04] MEDS: Heparin VIAL(*) 5000 UNITS/ML VIAL (FIVE THOUSAND) SUBCUT SCH ×3 (06:04→21:25)
--- NOTE | 2018-04-04 07:26 | PN ---
Subjective Date of Service: 04/04/18 Interval History: Weaned to 30L/min at 25% FiO2. Says he feels "100% better." Coughing more, bringing up brown sputum. Has been afebrile. No pain. Objective Active Medications: Acetaminophen (Tylenol Tab*) 650 mg PO Q6H PRN PRN Reason: FEVER/PAIN Albuterol/Ipratropium (Duoneb (Albuterol 2.5 Mg/Ipratropium 0.5 Mg)) 1 neb INH [id number] AWAKE [facility] Last Admin: 04/04/18 03:04 Dose: Not Given Guaifenesin (Mucinex*) 600 mg PO BID [facility] Last Admin: 04/03/18 21:22 Dose: 600 mg Heparin Sodium (Porcine) (Heparin Vial(*)) 5,000 units SUBCUT Q8HR [facility] Last Admin: 04/04/18 06:04 Dose: 5,000 units Azithromycin 250 mg/ Sodium (Chloride) 250 mls @ 250 mls/hr IVPB Q24H [facility] Stop: 04/07/18 08:59 Lorazepam (Ativan Tab(*)) 0.5 mg PO Q4H PRN PRN Reason: INSOMNIA Last Admin: 04/04/18 01:05 Dose: 0.5 mg Methylprednisolone Sodium Succinate (Solu-Medrol 40 Mg) 40 mg IV Q8H [facility] Last Admin: 04/04/18 01:05 Dose: 40 mg Mometasone Furoate/Formoterol Fumar (Dulera 200/5 Mdi*) 2 puff INH BID [facility] Last Admin: 04/03/18 20:03 Dose: 2 puff Nicotine Polacrilex (Nicotine Gum*) 2 mg PO Q2H PRN PRN Reason: CRAVING Vital Signs - 8 hr 04/03/18 04/03/18 04/04/18 23:25 23:30 00:00 Temperature 98.1 F Pulse Rate 88 Respiratory 21 19 Rate Blood Pressure 115/54 (mmHg) O2 Sat by Pulse 91 Oximetry 04/04/18 04/04/18 04/04/18 00:13 01:00 01:05 Temperature Pulse Rate 90 86 Respiratory 20 17 20 Rate Blood Pressure 134/79 (mmHg) O2 Sat by Pulse 93 92 Oximetry 04/04/18 04/04/18 04/04/18 01:08 02:00 02:02 Temperature Pulse Rate 83 81 Respiratory 16 20 17 Rate Blood Pressure 131/76 (mmHg) O2 Sat by Pulse 91 92 Oximetry 04/04/18 04/04/18 04/04/18 02:24 03:00 03:01 Temperature Pulse Rate 85 83 Respiratory 20 32 17 Rate Blood Pressure 118/90 (mmHg) O2 Sat by Pulse 89 89 Oximetry 04/04/18 04/04/18 04/04/18 03:25 03:57 03:59 Temperature 97.9 F Pulse Rate Respiratory 18 13 Rate Blood Pressure (mmHg) O2 Sat by Pulse Oximetry 04/04/18 04/04/18 04/04/18 04:01 04:39 04:58 Temperature Pulse Rate 82 83 Respiratory 19 25 17 Rate Blood Pressure 142/98 131/86 (mmHg) O2 Sat by Pulse 93 92 Oximetry 04/04/18 04/04/18 04/04/18 05:00 05:01 06:00 Temperature Pulse Rate 79 80 82 Respiratory 17 16 22 Rate Blood Pressure 113/86 (mmHg) O2 Sat by Pulse 92 92 87 Oximetry 04/04/18 04/04/18 06:01 06:07 Temperature Pulse Rate 80 Respiratory 19 19 Rate Blood Pressure 137/82 (mmHg) O2 Sat by Pulse 90 Oximetry Oxygen Devices in Use Now: High Flow Heated Nasal Cannula Appearance: alert, sitting up in bed resting comfortably. no accessory respiratory muscle use Eyes: No Scleral Icterus Ears/Nose/Mouth/Throat: NL Teeth, Lips, Gums Neck: NL Appearance and Movements; NL JVP Respiratory: - - diffuse expiratory wheezing, more air movement than yesterday Cardiovascular: NL Sounds; No Murmurs; No JVD, RRR, - - 1+ edema b/l Abdominal: NL Sounds; No Tenderness; No Distention Lymphatic: No Cervical Adenopathy Skin: No Rash or Ulcers Neurological: Alert and Oriented x 3 Result Diagrams: 04/03/18 03:49 04/03/18 03:49 Microbiology and Other Data: Microbiology 04/03/18 03:49 Aerobic Blood Culture - Preliminary Blood Venous No Growth Day 1 Anaerobic Blood Culture - Preliminary No Growth Day 1 04/03/18 03:33 Aerobic Blood Culture - Preliminary Blood Venous No Growth Day 1 Anaerobic Blood Culture - Preliminary No Growth Day 1 04/03/18 03:29 Influenza Types A,B Antigen - Final Nasal Specimen received for Influenza A/B Molecular testing Assess/Plan/Problems-Billing Assessment: This is a 52 year old man with history of COPD and ongoing tobacco use who presented with shortness of breath after failing outpatient prednisone and was admitted to the ICU for vapotherm - Patient Problems (1) Acute respiratory failure with hypoxia Current Visit: Yes Status: Acute Code(s): J96.01 - ACUTE RESPIRATORY FAILURE WITH HYPOXIA SNOMED Code(s): 02712651 Comment: related to COPD exacerbation + a possible pneumonia weaning vapotherm no home O2 requirement continue nebs, solumedrol, and zithromax I am adding CAP coverage today given possible early infiltrate on CXR and now with copious brown sputum--check sputum culture (2) COPD exacerbation Current Visit: Yes Status: Acute Code(s): J44.1 - CHRONIC OBSTRUCTIVE PULMONARY DISEASE W (ACUTE) EXACERBATION SNOMED Code(s): 921787791 Comment: as above he is not medically optimized at home on a daily basis; will need controller meds at discharge (3) Cigarette smoker Current Visit: No Status: Chronic Code(s): F17.210 - NICOTINE DEPENDENCE, CIGARETTES, UNCOMPLICATED SNOMED Code(s): 81828090 Comment: nicotine replacement
[2018-04-04] MEDS: Mometasone/Formoter 200/5 MDI INH SCH ×2 (08:04→19:14)
[2018-04-04] MEDS: guaiFENesin ER TAB 600 MG PO SCH ×2 (08:11→21:25)
[2018-04-04] MEDS: Levofloxacin 500 MG IVPREMIX(* 500 MG/100 ML BAG IVPB SCH (08:11)
[2018-04-04] MEDS ORDERED: Azithromycin IV(*) 250 MG in NS 0.9% 250 ML* 250 ML IVPB SCH (09:00)
[2018-04-04] MEDS ORDERED: Albuterol/Ipratropium NEB.SOL* Albuterol 2.5 MG/Ipratropium 0.5 MG 3 ML INH PRN (15:32)
[2018-04-04] MEDS: Calcium Carbonate CHEW TAB* 500 MG (TUMS) PO PRN (23:28)
[2018-04-05 03:22] VITALS: BP 145/85
[2018-04-05] MEDS: Heparin VIAL(*) 5000 UNITS/ML VIAL (FIVE THOUSAND) SUBCUT SCH (04:29)
[2018-04-05] MEDS: methylPREDNISolone SOD 40 MG* 1 ML VIAL IV SCH (04:29)
[2018-04-05] MEDS: Calcium Carbonate CHEW TAB* 500 MG (TUMS) PO PRN (04:35)
[2018-04-05 06:39] LABS: ABS Basophils 0.1 10^3/ul (0-0.2); ABS Eosinophils 0 10^3/ul (0-0.6); ABS Lymphocytes 0.7 10^3/ul (1.0-4.8); ABS Monocytes 0.6 10^3/ul (0-0.8); ABS Neutrophils 18.5 10^3/ul (1.5-7.7); ABS Nucleated RBC 0 10^3/ul; Eosinophil % 0 %; Hematocrit 46 % (42-52); Hemoglobin 15.3 g/dl (14.0-18.0); Lymphocyte % 3.6 %; Mean Corpuscular HGB Conc 34 g/dl (31-36); Mean Corpuscular Hemoglobin 31 pg (27-31); Mean Corpuscular Volume 92 fL (80-94); Mean Platelet Volume 8.5 fL (7.4-10.4); Nucleated Red Blood Cells % 0; Platelet Count 214 10^3/ul (150-450); Red Blood Count 4.96 10^6/ul (4.00-5.40); Red Cell Distribution Width 14 % (10.5-15); White Blood Count 19.9 10^3/ul (3.5-10.8)
[2018-04-05 06:55] LABS: BUN/Creatinine Ratio 23.8 (8-20); Calcium 9.4 mg/dL (8.6-10.3); EGFR African American 122.8 (>60); EGFR Non-African American 101.5 (>60); Magnesium 2.3 mg/dL (1.9-2.7); Potassium 4.4 mmol/L (3.5-5.0)
[2018-04-05] MEDS: Mometasone/Formoter 200/5 MDI INH SCH (07:46)
[2018-04-05] MEDS: Levofloxacin 500 MG IVPREMIX(* 500 MG/100 ML BAG IVPB SCH (08:19)
[2018-04-05] MEDS: guaiFENesin ER TAB 600 MG PO SCH (08:19)
[2018-04-05] MEDS ORDERED: Albuterol HFA INHALER* 8 gm MDI INH SCH (11:00)
--- NOTE | 2018-04-05 12:38 | DS ---
CC: Dr. Fabian.* DISCHARGE SUMMARY: DATE OF ADMISSION: 04/03/18 DATE OF DISCHARGE: 04/05/18 PRIMARY CARE PROVIDER: Dr. Fabian. DISCHARGE DIAGNOSES: 1. Acute hypoxemic respiratory failure. 2. Chronic obstructive pulmonary exacerbation causing above. 3. Possible pneumonia. SECONDARY DIAGNOSES: 1. History of chronic obstructive pulmonary disease. 2. History of tobacco abuse. MEDICATIONS AT DISCHARGE: Include: 1. Albuterol inhaler two puffs on a p.r.n. basis. 2. Concerta 80 mg daily. 3. Tessalon Perles 200 mg t.i.d. p.r.n. 4. Mucinex 600 mg b.i.d. p.r.n. 5. Levofloxacin 500 mg b.i.d. for a total of 4 days and stop nebulizer with DuoNebs on a p.r.n. basis. 6. Prednisone taper at 60 mg daily for a total of 2 days and 40 mg daily for 2 days, then 20 mg daily for 2 days, and 10 mg daily for 2 days and stop. LABORATORY DATA AND STUDIES PERFORMED DURING THE HOSPITAL STAY: Included: On , white blood cell count of 19.9, hemoglobin of 15.3, hematocrit of 46, and platelets of 214. Sodium was 138, potassium 4.4, chloride 106, carbon dioxide 27, BUN 19, creatinine 0.8. Influenza testing was negative. Blood cultures obtained on admission were unremarkable and negative. Portable chest x-ray obtained at admission impression: "Hyperinflation with partial left basilar atelectasis versus early consolidation". HOSPITALIZATION COURSE: Juan Stephenson is a 52-year-old male with a history of COPD and currently smoking who presented to the hospital complaining of acute shortness of breath. For further details of patient's presentation, please see history and physical dictated at admission. Shortly, the patient required high- flow oxygen and stay in the intensive care unit. He was placed on scheduled nebulizers and antibiotics. He was placed on Solu-Medrol parenterally. After his treatment in the ICU for high-flow nasal cannula, he rapidly improved and on 04/04/18 he was transferred out in the intensive care unit. He was continued on Levaquin as an antibiotic. His chest x-ray showed possibility of pneumonia/atelectasis in the left lung. , Although he has leukocytosis increased by the time of discharge is likely related to steroid use. The patient himself has no wheezes on evaluation today. His oxygenation is 94% on room air while ambulating and he is ready to be discharged. He is going to be discharged home, recommendation to follow up with his primary care provider in 4 to 7 days. PHYSICAL EXAM: At the time of discharge, blood pressure 145/85, heart rate of 75 and regular, respiratory rate 16, oxygen saturation 94% on room air, temperature 97.6. General: Patient is a very pleasant 52-year-old male who is in no acute distress. Awake, alert, and oriented x3. HEENT: Head atraumatic, normocephalic. Eyes: Pupils equal, reactive to light and accommodation. Oropharynx is clear. Mucosa moist. Neck: Supple. No JVD, no bruits bilaterally. Cardiovascular: Regular rate and rhythm. No murmur. Respiratory: Clear to auscultation bilaterally. Abdomen: Soft, nontender. Bowel sounds are present in all 4 quadrants. Lower Extremities: There is no edema. Pulses are +2 bilaterally. No clubbing or cyanosis. On neuro evaluation, speech clear. Cranial nerves II through XII grossly intact. Motor strength is 5/5 bilaterally. Please note that this is a short summary of patient's hospitalization. Please refer to further medical records for details. TIME SPENT: Approximately 40 minutes were spent on patient's discharge. [id number]/CPS #: [id number] ANDRES
[2018-04-05] MEDS ORDERED: methylPREDNISolone SOD 40 MG* 1 ML VIAL IV SCH (20:00)
== END 2018-04-05 11:50 | disposition home or self-care (01) | DRG 140 ==
LOC: ED 03:20 → ICU 05:06 → MED 04-04 17:01
PROVIDERS: ADMIT Internal Medicine; ATTEND Internal Medicine
DX: J44.0 Chronic obstructive pulmonary disease with (acute) lower respiratory infection (principal); J18.9 Pneumonia, unspecified organism; J96.01 Acute respiratory failure with hypoxia; J98.11 Atelectasis; J44.1 Chronic obstructive pulmonary disease with (acute) exacerbation; F17.210 Nicotine dependence, cigarettes, uncomplicated; Z79.51 Long term (current) use of inhaled steroids; Z79.52 Long term (current) use of systemic steroids; Z79.899 Other long term (current) drug therapy; Z88.0 Allergy status to penicillin; Z83.79 Family history of other diseases of the digestive system
CPT/HCPCS: 36415; 71045; 80048; 80053; 82803; 83605; 83735; 83880; 85025; 87040; 93005; 94640; 99285; A9270-GY; J0456; J1644; J1956; J2920; J2930; J3475

== ENCOUNTER 2018-04-22 05:14 | Emergency (ER) | payer OTHER ==
--- NOTE | 2018-04-22 05:19 | ED ---
Respiratory - History of Current Complaint Stated Complaint: SOB PER EMS - Allergy/Home Medications Allergies/Adverse Reactions: Allergies Allergy/AdvReac Type Severity Reaction Status Date / Time bee venom protein (honey bee) Allergy Anaphylatic Verified 04/03/18 03:28 Shock Milk Containing Products Allergy Anaphylatic Verified 04/03/18 03:28 Shock Penicillins Allergy Unknown Verified 04/03/18 03:28 Reaction Details PMH/Surg Hx/FS Hx/Imm Hx Endocrine/Hematology History: Denies: Hx Anticoagulant Therapy, Hx Diabetes, Hx Thyroid Disease Cardiovascular History: Denies: Hx Hypertension, Hx Pacemaker/ICD Respiratory History: Reports: Hx Asthma, Hx Chronic Obstructive Pulmonary Disease (COPD) GI History: Reports: Other GI Disorders History: Denies: Hx Renal Disease Sensory History: Reports: Hx Contacts or Glasses Denies: Hx Legally Blind, Hx Deafness, Hx Hearing Aid Opthamlomology History: Reports: Hx Contacts or Glasses Denies: Hx Legally Blind Neurological History: Denies: Hx Dementia, Hx Seizures Psychiatric History: Denies: Hx Schizophrenia, Hx Substance Abuse - Immunization History Date of Tetanus Vaccine: UTD Infectious Disease History: Denies: Hx Hepatitis, Hx Human Immunodeficiency Virus (HIV) - Family History Known Family History: Positive: Cardiac Disease - Social History Alcohol Use: Rare Hx Substance Use: No Substance Use Type: Reports: None Hx Tobacco Use: Yes Smoking Status (MU): Light Every Day Tobacco Smoker Type: Cigarettes Amount Used/How Often: 1 cigarette per day Discharge - Discharge Plan Referrals: Venkat Fabian MD [Primary Care Provider] - - Attestation Statements Document Initiated by Scribe: Yes Documenting Scribe: August Hall Provider For Whom Scribe is Documenting (Include Credential): Emerson Rose MD Scribe Attestation: August Mendoza, scribed for Emerson Rose MD on 04/22/18 at 0519.
[2018-04-22] MEDS ORDERED: Dexamethasone IV* 4 MG/ML 1 ML (4 MG) IV SLOW PU ONE (05:40)
[2018-04-22] MEDS ORDERED: Albuterol/Ipratropium NEB.SOL* Albuterol 2.5 MG/Ipratropium 0.5 MG 3 ML INH ONE ×2 (05:40→07:25)
[2018-04-22] MEDS ORDERED: Dexamethasone IV* 4 MG/ML 1 ML (4 MG) IM ONE (05:40)
[2018-04-22] MEDS ORDERED: Magnesium Sulfate 2 GM IV* 2 GM/50 ML BAG IVPB ONE (05:40)
--- OUTSIDE RECORDS SUMMARY | 2018-04-22 05:53 | XMS REPORT | Continuity of Care Document ---
:1965 External Reference #:[id number] Author Name Venkat aFbian M.D. 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 Active Onset: 06/13/2014 Tobacco user Venkat Fabian M.D. Active Onset: 06/13/2014 Allergy - specialty Venkat Fabian M.D. Active Onset: 06/13/2014 Chronic obstructive lung disease Venkat Fabian M.D. Active Onset: 04/11/2014 Pneumonia Venkat Fabian M.D. Active Family History Date Family Member(s) Observation Comments Father due to Unknown Causes () Mother : Etoh Abuse Number of Children 1 Number of Siblings Siblings: none Social History Type Date Description Comments Sex Unknown Education Highest level of education completed is 12th grade Marital Status Patient is Living Situation Lives with spouse and daughter Occupation Unemployed Tobacco Use Start: Unknown Current Cigarette Smoker 2-3 /DAY, formerly 2ppd for 15 yrs ETOH Use Rarely consumes alcohol Tobacco Use Start: Unknown End: Patient is a former Unknown smoker Seat Belt/Car Seat Always uses a seat belt Allergies, Adverse Reactions, Alerts Date Description Reaction Status Severity Comments 10/25/2006 Penicillin Active 11/12/2008 Lactose Intolerance Active 06/13/2014 Bee Sting Active Medications Medication Date Status Form Strength Qnty SIG Indications Ordering Provider Evelyn 04/07/ Active Aerosol 200-5mcg/A 13gm 2 puff [address] twice a rogelio Fabian.DWendy Bupropion 04/07/ Active Tablets ER 100mg 60tab 1 po bid Venkat F. Hydrochloride 2018 12HR s JUICE Fabian (SR) M.DWendy Omeprazole 04/07/ Active Capsules 20mg 30cap 1 by mouth Venkat FWendy 2019 DR mckeon every day Erin Fabian Ipratropium 07/15/ Active Solution 0.5-2.5(3) 1box use four Venkat F. 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 2015 ) mcg/Act puffs by Rui mouth M.DWendy every 4 hours as needed (insurance covers 1 q 25 days) Nebulizer Set 12/08/ Active 1unit dx copd 493.90 Venkat F. Up And Tubing 2011 s Erin Fabian Duoneb 07/15/ Hx Solution 0.5-2.5(3) use three J45.909 Annalee 2018 - mg/3ML times a Jamil, 07/15/ day as [employer] 2018 needed sob Chantix 05/15/ Hx Tablets 1mg 60tab take 1 Boom Hand 2015 - s tablet by Faiza, 11/18/ mouth M.D. 2016 twice a day Chantix 05/14/ Hx Tablets 0.5mg X 11 1pack titrate as Boom Hand Starting Month 2015 - & 1 mg X directed Faiza, Myles 11/18/ 42 M.D. 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 2012 - ) mcg/Act s puffs by Rui, 02/11/ mouth M.DWendy 2016 every 4 hours Singulair 12/08/ Hx Tablets 10mg 30tab 1 po qd 493.90 Belle 2011 - s Toya, 04/11/ [employer] 2014 477.9 Duoneb 12/09/2011 Hx Solution 0.5-2.5(3)mg/3ML 1Box use in J45.909 Annalee - nebulizer [facility], 07/15/2017 four times a [employer]WORK [employer] day as needed 11/11/2011 Hx Tablets 1-2 qid prn Family - symptoms Medicine 12/09/2011 [facility] Physical 11/11/2011 Hx treatment Venkat F. Therapy - and Rui, 12/09/2011 evaluation MSha backpain,abd ominal spasm Ventolin 07/17/2011 Hx Aerosol 108(90Base) 1unit inhale two Venkat F. HFA - mcg/ac s puffs by Rui, 06/19/2012 mouth four M.D. times a day as needed Omeprazol 12/01/2010 Hx Capsules 20mg 30cap 1 po qd Venkat F. e - DR mike Fabian, 06/26/2013 Erin Triamcina 10/14/2010 Hx 0.1% 60gm apply to Venkat F. lone - affected Rui Acetonide 06/26/2013 area bid-tid MSha Prednison 07/22/2010 Hx Tablets 10mg 60tab 3 po daily Venkat F. e - s for 3 days, Rui, 12/01/2010 2 daily for M.D. 3 days, 1 daily for 3 days, 1/2 dailyfor 3 days, stop Medrol 07/16/2010 Hx Tablets 4mg 1tabs as directed Venkat FWendy Dosepak - Rui, 07/22/2010 M.D. Betametha 07/16/2010 Hx Cream 0.1% 60gm Apply To Venkat F. sone - Affected Peppertorrey, Valerate 10/26/2010 Area bid prn M.D. Garamycin 07/16/2010 Hx Solution 1Bott 1-2 qtts in Venkat F. Opthalmic - le affected eye Rui Soln 07/22/2010 tid x 4-5 M.D. days Prevacid 06/13/2010 Hx Capsules 30mg 30cap 1 po bid Venkat F. - DR mike Fabian, 12/01/2010 M.D. Metronida 06/13/2010 Hx Tablets 500mg 30tab take 1 Venkat F. zole - s tablet by Rui, 07/22/2010 mouth 2 M.D. times a day Clarithro 06/13/2010 Hx Tablets 500mg 28tab take 1 Venkat F. mycin - s tablet by Rui, 07/22/2010 mouth every M.D. 12 hours Proair 06/09/2010 Hx Aerosol 108(90Base) 1unit inhale 2 Venkat F. HFA - mcg/ac s puffs by Rui, 07/17/2011 mouth every M.D. 4 hours Famotidin 06/09/2010 Hx Tablets 20mg 60tab take 1 Venkat F. e - s tablet by Rui, 12/01/2010 mouth twice M.D. a day Physical 06/09/2010 Hx treatment Venkat F. Therapy - and Rui, 07/22/2010 evaluation M.D. low back pain Medrol 11/26/2008 Hx Tablets 4mg 1tabs as directed Venkat FWendy Dosepak - Rui, 12/01/2008 M.D. Physical 11/19/2008 Hx Evaluate And 724.5 Venkat F. Therapy - Treat. Rui, 06/09/2010 M.D. Transport 11/15/2008 Hx 0unit pt needs Venkat F. ation - s transportati Shallish, 11/19/2008 on for appt M.D. Nov AT 2:20PM And Nov AT 3PM AT [facility] [address] [facility] [place] 11/12/2008 Hx Tablets 20mg 25tab 3 po qd for Venkat Timothy. e - s 3 days,2 po Shallish, 11/26/2008 qd for 3 M.D. days 1 po qd for 3 days,1/2 po qd for 3 days then stop Topicort 11/12/2008 Hx Cream 0.25% 1Tub rub in bid Venkat Timothy. - prn Shallish, 06/09/2010 Erin Wellbutri 10/10/2008 Hx Tablets 150mg 60tab 1 po daily 305.1 Alex friend SR - ER 12HR s for a week Erin Ennis 06/09/2010 then bid Proventil 10/10/2008 Hx Aerosol 108mcg/Act 1unit 2 puffs q4h 786.05 Alex Bach HFA - s prn Erin Ennis 06/09/2010 shortness of breath Medrol 10/10/2008 Hx Tablets 4mg 1tabs use as 709.9 Alex Bach Dosepak - directed Erin Ennis 11/12/2008 Flexeril 01/26/2008 Hx Tablets 10mg 30tab 1 po tid prn 724.2 Belle - s muscle spasm Toya, 06/09/2010 [employer]WORK [employer] Note 12/04/2007 Hx PT seen in [facility] - marly[facility] office [facility], 01/18/2008 today, no Afnp-C heavy lifting or repetitive bending for next 6-8 weeks Proventil 11/20/2007 Hx Aerosol 108mcg/Act 1unit 2 puffs q4h Suki Hfa - s prn Leonardo, 10/10/2008 Afnp-C Prilosec 11/20/2007 Hx Capsules 20mg 30cap 1 po qd Suki Patterson, 06/09/2010 Afnp-C Zyrtec 11/20/2007 Hx Tablets 10mg 30tab 1 po qd Suki Patterson, 11/19/2008 Afnp-C Ibuprofen 09/28/2007 Hx Tablets 800mg 100ta 1 po q8-12 724.2 Belle - bs hours prn Toya, 11/12/2008 with food [employer]WORK [employer] Skelaxin 09/28/2007 Hx Tablets 800mg 45tab 1 po q 8h 724.2 Belle - s Toya, 01/26/2008 [employer]WORK [employer] Physical 09/28/2007 Hx evaluate and 724.2 Belle Therapy - treat Toya, 10/10/2008 chronic low [employer] ENG[employer]ER back pain Minocin 12/15/2006 Hx Capsules 50mg 20cap 1 PO bid Venkat F. - s prn Peppertorrey, 09/28/2007 MSha Medrol 11/25/2006 Hx Tablets 4mg 1tabs take as Venkat F. Dose Myles - directed Rui, 12/15/2006 Erin Betametha 11/25/2006 Hx Cream 0.1% 60gm Apply To Venkat F. 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 - s q4hrs prn Rui, 12/09/2011 MSha Atrovent Hx Aerosol 17mcg/Act 1unit inhale 2 Venkat F. HFA - s puffs bid Shalltorrey, 04/11/2014 MSha Proventil Hx Aerosol 108(90Base) Unknown HFA - mcg/Act 04/11/2014 Tessalon Hx Capsules 100mg 1 by mouth Unknown Perles - three times 06/13/2014 a day for cough Levaquin Hx Tablets 500mg Unknown - 04/11/2014 Oxygen Hx 2l Unknown Therapy - continuously 06/13/2014 Immunizations CPT Code Status Date Vaccine Lot # [id number] Given 11/18/2016 Influenza Vac, Quadrivalent, Slit Virus, Im [id number] Given 12/01/2010 Tdap Tetanus, W Pertussis [id number] Given 12/01/2010 DO Not Use Split Influenza Virus Vaccine [id number] Vital Signs Date Vital Result Comment 04/07/2018 12:36pm BP Systolic 130 mmHg BP Diastolic 88 mmHg Heart Rate 66 /min Body Temperature 98.1 F Respiratory Rate 18 /min O2 % BldC Oximetry 98 % Weight 254.00 lb 11/18/2016 12:47pm BP Systolic 110 mmHg BP Diastolic 72 mmHg Heart Rate 58 /min Body Temperature 98.6 F Height 73 inches 6'1" Weight 229.12 lb BMI (Body Mass Index) 30.2 kg/m2 05/15/2015 3:05pm BP Systolic 118 mmHg BP Diastolic 84 mmHg Heart Rate 76 /min Body Temperature 96.8 F Height 73 inches 6'1" Weight 250.50 lb BMI (Body Mass Index) 33.0 kg/m2 06/13/2014 11:43am BP Systolic 112 mmHg BP Diastolic 74 mmHg Heart Rate 62 /min Body Temperature 97.1 F Respiratory Rate 16 /min Height 73 inches 6'1" Weight 259.25 lb BMI (Body Mass Index) 34.2 kg/m2 04/11/2014 3:50pm BP Systolic 110 mmHg BP Diastolic 80 mmHg Heart Rate 68 /min Body Temperature 98.5 F Respiratory Rate 18 /min O2 % BldC Oximetry 97 % Height 73 inches 6'1" Weight 248.00 lb BMI (Body Mass Index) 32.7 kg/m2 06/27/2013 10:43am BP Systolic 110 mmHg BP Diastolic 78 mmHg Heart Rate 84 /min Body Temperature 98.1 F Height 73 inches 6'1" Weight 262.00 lb BMI (Body Mass Index) 34.6 kg/m2 12/09/2011 11:52am BP Systolic 116 mmHg BP Diastolic 80 mmHg Heart Rate 68 /min Body Temperature 97.6 F Respiratory Rate 20 /min Height 73 inches 6'1" Weight 270.00 lb BMI (Body Mass Index) 35.6 kg/m2 11/11/2011 4:29pm BP Systolic 124 mmHg BP Diastolic 80 mmHg Heart Rate 72 /min Body Temperature 97.6 F Height 73 inches 6'1" Weight 269.00 lb BMI (Body Mass Index) 35.5 kg/m2 12/01/2010 6:12pm BP Systolic 110 mmHg BP Diastolic 70 mmHg Heart Rate 72 /min Respiratory Rate 15 /min Height 73 inches 6'1" Weight 245.00 lb BMI (Body Mass Index) 32.3 kg/m2 07/16/2010 2:09pm BP Systolic 112 mmHg BP Diastolic 72 mmHg Heart Rate 92 /min Body Temperature 98.3 F O2 % BldC Oximetry 95 % Height 73 inches 6'1" Weight 228.00 lb BMI (Body Mass Index) 30.1 kg/m2 06/09/2010 3:25pm BP Systolic 110 mmHg BP Diastolic 70 mmHg Heart Rate 76 /min Respiratory Rate 16 /min Height 73 inches 6'1" Weight 222.00 lb BMI (Body Mass Index) 29.3 kg/m2 11/27/2008 10:56am BP Systolic 120 mmHg BP Diastolic 80 mmHg Heart Rate 80 /min Body Temperature 98.5 F Weight 235.00 lb 11/19/2008 2:18pm BP Systolic 140 mmHg BP Diastolic 84 mmHg Heart Rate 80 /min Height 73 inches 6'1" Weight 241.00 lb BMI (Body Mass Index) 31.8 kg/m2 11/12/2008 4:34pm BP Systolic 126 mmHg BP Diastolic 84 mmHg Heart Rate 96 /min Body Temperature 98.8 F Weight 227.00 lb 10/10/2008 12:21pm BP Systolic 124 mmHg BP Diastolic 88 mmHg Heart Rate 80 /min Body Temperature 97.8 F Respiratory Rate 16 /min Weight 226.00 lb 01/26/2008 10:57am BP Systolic 140 mmHg BP Diastolic 80 mmHg Heart Rate 80 /min Body Temperature 97.9 F Height 73 inches 6'1" Weight 257.00 lb BMI (Body Mass Index) 33.9 kg/m2 12/04/2007 10:56am BP Systolic 120 mmHg BP Diastolic 80 mmHg Heart Rate 72 /min Body Temperature 98.4 F Height 73 inches 6'1" Weight 248.00 lb BMI (Body Mass Index) 32.7 kg/m2 11/20/2007 11:21am BP Systolic 132 mmHg BP Diastolic 82 mmHg Heart Rate 76 /min Body Temperature 98.5 F Height 73 inches 6'1" Weight 248.00 lb BMI (Body Mass Index) 32.7 kg/m2 09/28/2007 11:03am BP Systolic 112 mmHg BP Diastolic 72 mmHg Heart Rate 88 /min Height 73 inches 6'1" Weight 247.00 lb BMI (Body Mass Index) 32.6 kg/m2 12/15/2006 4:26pm BP Systolic 130 mmHg BP Diastolic 80 mmHg Heart Rate 78 /min Body Temperature 99.0 F Height 73 inches 6'1" Weight 255.00 lb BMI (Body Mass Index) 33.6 kg/m2 11/25/2006 12:05pm BP Systolic 128 mmHg BP Diastolic 74 mmHg Heart Rate 72 /min Body Temperature 98.2 F Height 73 inches 6'1" 10/25/2006 2:19pm BP Systolic 120 mmHg BP Diastolic 78 mmHg Heart Rate 84 /min Height 73 inches 6'1" Weight 257.00 lb BMI (Body Mass Index) 33.9 kg/m2 Results Test Date Facility Test Result H/L Range Note Comp Metabolic Panel 04/03/2018 [facility] [place] 139 mmol/L N 135-145 Potassium 4.1 mmol/L N 3.5-5.0 Chloride 103 mmol/L N 101-111 Co2 Carbon Dioxide 29 mmol/L N 22-32 Anion Gap 7 mmol/L N 2-11 Glucose 126 mg/dL High 70-100 Blood Urea Nitrogen 18 mg/dL N 6-24 Creatinine 0.99 mg/dL N 0.67-1.17 BUN/Creatinine Ratio 18.2 N 8-20 Calcium 9.1 mg/dL N 8.6-10.3 Total Protein 7.1 g/dL N 6.4-8.9 Albumin 4.3 g/dL N 3.2-5.2 Globulin 2.8 g/dL N 2-4 Albumin/Globulin Ratio 1.5 N 1-3 Total Bilirubin 0.30 mg/dL N 0.2-1.0 Alkaline Phosphatase 52 U/L N 34-104 Alt 33 U/L N 7-52 Ast 26 U/L N 13-39 Egfr Non- 79.4 >60 Egfr 96.1 >60 1 CBC Auto Diff 04/03/2018 [facility] [place] White Blood Count 12.8 10^3/uL High 3.5- 10.8 Red Blood Count 5.28 10^6/uL N 4.00-5.40 Hemoglobin 16.2 g/dL N 14.0-18.0 Hematocrit 50 % N 42-52 Mean Corpuscular Volume 94 fL N 80-94 Mean Corpuscular Hemoglobin 31 pg N 27-31 Mean Corpuscular HGB Conc 33 g/dL N 31-36 Red Cell Distribution Width 14 % N 10.5-15 Platelet Count 235 10^3/uL N 150-450 Mean Platelet Volume 8.2 fL N 7.4-10.4 Abs Neutrophils 9.0 10^3/uL High 1.5-7.7 Abs Lymphocytes 2.2 10^3/uL N 1.0-4.8 Abs Monocytes 0.9 10^3/uL High 0-0.8 Abs Eosinophils 0.6 10^3/uL N 0-0.6 Abs Basophils 0.1 10^3/uL N 0-0.2 Abs Nucleated RBC 0 10^3/uL Granulocyte % 70.7 % Lymphocyte % 17.1 % Monocyte % 7.0 % Eosinophil % 4.7 % Basophil % 0.5 % Nucleated Red Blood Cells % 0 Laboratory test finding 04/03/2018 [facility] [place] Lactic Acid 2.0 mmol/L N 0.5-2.0 2 B-Type Natriuretic Peptide BNP 158 pg/mL High <=100 Blood Culture SEE RESULT BELOW 3 Arterial Blood Gas 04/03/2018 [facility] [place] O2 Device vapo Fio2 30 PH Arterial 7.27 Low 7.35-7.45 Pco2 Arterial 65 mmHg High 35-45 Po2 Arterial 141 mmHg High 80-100 O2 Saturation Arterial 99.3 % High 94.0-98.0 Base Excess Arterial 1.2 mmol/L N -2.0-2.0 4 Hco3 Arterial 25.8 mmol/L N 19-31 Rapid Influenza A & B 04/03/2018 [facility] [place] Influenza A Molecular NEGATIVE Negative 5 Molecular Influenza B Molecular NEGATIVE Negative Laboratory test 04/03/2018 [facility] [place] Rapid Influenza A & SEE RESULT BELOW 6 finding B Antigen CBC Auto Diff 03/06/2018 [facility] [place] White Blood Count 8.7 10^3/uL N 3.5-10.8 Red Blood Count 5.12 10^6/uL N 4.00-5.40 Hemoglobin 16.2 g/dL N 14.0-18.0 Hematocrit 47 % N 42-52 Mean Corpuscular Volume 92 fL N 80-94 Mean Corpuscular Hemoglobin 32 pg High 27-31 Mean Corpuscular HGB Conc 34 g/dL N 31-36 Red Cell Distribution Width 13 % N 10.5-15 Platelet Count 219 10^3/uL N 150-450 Mean Platelet Volume 8.4 fL N 7.4-10.4 Abs Neutrophils 6.4 10^3/uL N 1.5-7.7 Abs Lymphocytes 1.4 10^3/uL N 1.0-4.8 Abs Monocytes 0.6 10^3/uL N 0-0.8 Abs Eosinophils 0.3 10^3/uL N 0-0.6 Abs Basophils 0.1 10^3/uL N 0-0.2 Abs Nucleated RBC 0 10^3/uL Granulocyte % 73.2 % Lymphocyte % 15.6 % Monocyte % 6.7 % Eosinophil % 3.8 % Basophil % 0.7 % Nucleated Red Blood Cells % 0.1 Comp Metabolic Panel 03/06/2018 [facility] [place] Sodium 139 mmol/L N 135-145 Chloride 105 mmol/L N 101-111 Co2 Carbon Dioxide 27 mmol/L N 22-32 Glucose 102 mg/dL High 70-100 Blood Urea Nitrogen 16 mg/dL N 6-24 Creatinine 0.96 mg/dL N 0.67-1.17 BUN/Creatinine Ratio 16.7 N 8-20 Calcium 9.0 mg/dL N 8.6-10.3 Total Protein 6.9 g/dL N 6.4-8.9 Albumin 4.3 g/dL N 3.2-5.2 Globulin 2.6 g/dL N 2-4 Albumin/Globulin Ratio 1.7 N 1-3 Total Bilirubin 0.30 mg/dL N 0.2-1.0 Alkaline Phosphatase 58 U/L N 34-104 Alt 21 U/L N 7-52 Egfr Non- 82.3 >60 Egfr 99.5 >60 7 Potassium 4.0 mmol/L N 3.5-5.0 Anion Gap 7 mmol/L N 2-11 Ast 19 U/L N 13-39 Laboratory test finding 03/06/2018 [facility] [place] C Reactive Protein 6.10 mg/L N < 8.01 CBC Auto Diff 02/18/2018 [facility] [place] White Blood Count 7.9 10^3/uL N 3.5-10.8 Red Blood Count 5.01 10^6/uL N 4.00-5.40 Hemoglobin 15.6 g/dL N 14.0-18.0 Hematocrit 46 % N 42-52 Mean Corpuscular Volume 92 fL N 80-94 Mean Corpuscular Hemoglobin 31 pg N 27-31 Mean Corpuscular HGB Conc 34 g/dL N 31-36 Red Cell Distribution Width 13 % N 10.5-15 Platelet Count 211 10^3/uL N 150-450 Mean Platelet Volume 9.0 fL N 7.4-10.4 Abs Neutrophils 5.7 10^3/uL N 1.5-7.7 Abs Lymphocytes 1.3 10^3/uL N 1.0-4.8 Abs Monocytes 0.6 10^3/uL N 0-0.8 Abs Eosinophils 0.3 10^3/uL N 0-0.6 Abs Basophils 0.1 10^3/uL N 0-0.2 Abs Nucleated RBC 0 10^3/uL Granulocyte % 71.3 % Lymphocyte % 16.7 % Monocyte % 7.2 % Eosinophil % 3.7 % Basophil % 1.1 % Nucleated Red Blood Cells % 0.1 Comp Metabolic Panel 02/18/2018 [facility] [place] Sodium 141 mmol/L N 135-145 Chloride 107 mmol/L N 101-111 Co2 Carbon Dioxide 28 mmol/L N 22-32 Glucose 123 mg/dL High 70-100 Blood Urea Nitrogen 18 mg/dL N 6-24 Creatinine 0.90 mg/dL N 0.67-1.17 BUN/Creatinine Ratio 20.0 N 8-20 Calcium 9.1 mg/dL N 8.6-10.3 Total Protein 6.6 g/dL N 6.4-8.9 Albumin 4.2 g/dL N 3.2-5.2 Globulin 2.4 g/dL N 2-4 Albumin/Globulin Ratio 1.8 N 1-3 Total Bilirubin 0.30 mg/dL N 0.2-1.0 Alkaline Phosphatase 53 U/L N 34-104 Alt 29 U/L N 7-52 Egfr Non- 88.6 >60 Egfr 107.2 >60 8 Potassium 3.9 mmol/L N 3.5-5.0 Anion Gap 6 mmol/L N 2-11 Ast 22 U/L N 13-39 Laboratory test finding 02/18/2018 [facility] [place] C Reactive Protein 3.77 mg/L N < 8.01 Laboratory test finding 11/02/2017 [facility] [place] Lactic Acid 1.3 mmol/L N 0.5-2.0 9 Blood Culture SEE RESULT BELOW 10 Laboratory test 11/02/2017 [facility] [place] Rapid Influenza A SEE RESULT 11 finding & B Antigen BELOW CBC No Diff 11/02/2017 [facility] [place] White Blood Count 15.3 10^3/uL High 3.5-10.8 Red Blood Count 5.04 10^6/uL N 4.00-5.40 Hemoglobin 16.1 g/dL N 14.0-18.0 Hematocrit 46 % N 42-52 Mean Corpuscular Volume 92 fL N 80-94 Mean Corpuscular Hemoglobin 32 pg High 27-31 Mean Corpuscular HGB Conc 35 g/dL N 31-36 Red Cell Distribution Width 13 % N 10.5-15 Platelet Count 223 10^3/uL N 150-450 Mean Platelet Volume 8.4 um3 N 7.4-10.4 Rapid Influenza A & B 11/02/2017 [facility] [place] Influenza A Molecular NEGATIVE Negative 12 Molecular Influenza B Molecular NEGATIVE Negative Comp Metabolic Panel 11/02/2017 [facility] [place] Sodium 134 mmol/L Low 135-145 Potassium 3.8 mmol/L N 3.5-5.0 Chloride 100 mmol/L Low 101-111 Co2 Carbon Dioxide 25 mmol/L N 22-32 Anion Gap 9 mmol/L N 2-11 Glucose 101 mg/dL High 70-100 Blood Urea Nitrogen 16 mg/dL N 6-24 Creatinine 0.96 mg/dL N 0.67-1.17 BUN/Creatinine Ratio 16.7 N 8-20 Calcium 9.3 mg/dL N 8.6-10.3 Total Protein 7.3 g/dL N 6.4-8.9 Albumin 4.3 g/dL N 3.2-5.2 Globulin 3.0 g/dL N 2-4 Albumin/Globulin Ratio 1.4 N 1-3 Total Bilirubin 1.00 mg/dL N 0.2-1.0 Alkaline Phosphatase 69 U/L N 34-104 Alt 16 U/L N 7-52 Ast 15 U/L N 13-39 Egfr Non- 82.6 >60 Egfr 99.9 >60 13 Complete Blood Count 11/18/2016 Begum Candi ([facility]) WBC 9.7 x10^3/UL High 3.6-9.6 RBC 5.40 x10^6/UL 3.90-5.70 HGB 16.4 g/dL 12.1-17.2 HCT 50 % 36-50 MCV 92.0 fL 82.2-97.4 MCH 30.3 pg 27.6-33.3 MCHC 33.0 g/dL 33.0-35.5 RDW 13.8 % High 11.6-13.7 PLT 274 x10^3/UL 150-400 MPV 7.7 fL 7.4-10.4 Gran # 8.0 x10^3/UL High 1.5-7.2 Lymph# 1.3 x10^3/UL 0.7-4.9 [place]# 0.4 x10^3/UL 0.1-0.9 Gran % 82.4 % High 42.2-75.2 Lymph % 13.4 % Low 20.5-51.1 [place]% 4.2 % 1.7-9.3 Comprehensive Metabolic 11/18/2016 Kel Candi ([facility]) Sodium 149 mEq/L 134-149 Prof Potassium 4.6 mEq/L 3.6-5.5 Chloride 109 mEq/L 94-112 Carbon Dioxide 22 mEq/L 21-32 Glucose 85 mg/dL 70-105 BUN 10 mg/dL 6-26 Creatinine 0.9 mg/dL 0.6-1.4 BUN/Creat Ratio 11.1 CALC 8.0-36.0 Calcium 9.5 mg/dL 8.6-10.2 Total Protein 7.3 g/dL 6.4-8.3 Albumin 4.6 g/dL 3.8-5.5 Globulin 2.7 g/dL 2.0-4.8 A/G Ratio 1.7 CALC 0.6-2.3 Alk. Phosphatase 63 U/L 22-95 Alt (SGPT) 21 U/L 7-35 Ast (Sgot) 20 U/L 5-34 Total Bilirubin 0.6 mg/dL 0.2-1.3 GFR Non- >60 ml/min/1.73m^ >=60 GFR >60 ml/min/1.73m^ >=60 Laboratory test 11/18/2016 Kel Christopher ([facility]) Free T4 1.30 ng/dL 0.75- 1.54 finding TSH 1.95 mIU/L 0.50-6.00 CBC Auto Diff 01/27/2016 [facility] [place] White Blood Count 7.2 10^3/uL N 3.5-10.8 Red Blood Count 5.40 10^6/uL N 4.0-5.4 Hemoglobin 16.5 g/dL N 14.0-18.0 Hematocrit 50 % N 42-52 Mean Corpuscular Volume 93 fL N 80-94 Mean Corpuscular Hemoglobin 31 pg N 27-31 Mean Corpuscular HGB Conc 33 g/dL N 31-36 Red Cell Distribution Width 13 % N 10.5-15 Platelet Count 207 10^3/uL N 150-450 Mean Platelet Volume 8 um3 N 7.4-10.4 Abs Neutrophils 5.2 10^3/uL N 1.5-7.7 Abs Lymphocytes 1.0 10^3/uL N 1.0-4.8 Abs Monocytes 0.6 10^3/uL N 0-0.8 Abs Eosinophils 0.4 10^3/uL N 0-0.6 Abs Basophils 0.1 10^3/uL N 0-0.2 Abs Nucleated RBC 0 10^3/uL N Granulocyte % 72.2 % N 38-83 Lymphocyte % 13.3 % Low 25-47 Monocyte % 8.1 % N 1-9 Eosinophil % 5.3 % N 0-6 Basophil % 1.1 % N 0-2 Nucleated Red Blood Cells % 0.1 N Laboratory test 01/27/2016 [facility] [place] Rapid Influenza A & SEE RESULT BELOW 14 finding B Antigen Rapid Influenza A & 01/27/2016 [facility] [place] Influenza A NEGATIVE N Negative 15 B Molecular Molecular Influenza B Molecular NEGATIVE N Negative Laboratory test 01/27/2016 [facility] [place] B-Type Natriuretic 14 pg/mL N 16 finding Peptide BNP Inr/Protime 01/27/2016 [facility] [place] Inr 0.99 N 0.89-1.11 Laboratory test 01/27/2016 [facility] [place] Partial Thrombo Time 34.1 seconds N 26.0- 36.3 finding PTT Troponin I 0.01 ng/mL N <0.04 17 Myoglobin 38.3 ng/mL N 17.4-105.7 CKMB 01/27/2016 [facility] [place] CKMB ng/mL 3.1 ng/mL N 0.6-6.3 Laboratory test finding 01/27/2016 [facility] [place] Creatine Kinase(CK) 97 U/L N 10- 223 Lactic Acid 1.1 mmol/L N 0.5-2.0 18 Comp Metabolic Panel 01/27/2016 [facility] [place] Sodium 137 mmol/L N 133-145 Potassium 4.0 mmol/L N 3.5-5.0 Chloride 103 mmol/L N 101-111 Co2 Carbon Dioxide 26 mmol/L N 22-32 Anion Gap 8 mmol/L N 2-11 Glucose 89 mg/dL N 70-100 Blood Urea Nitrogen 13 mg/dL N 6-24 Creatinine 0.85 mg/dL N 0.67-1.17 BUN/Creatinine Ratio 15.3 N 8-20 Calcium 9.5 mg/dL N 8.6-10.3 Total Protein 7.9 g/dL N 6.4-8.9 Albumin 4.5 g/dL N 3.2-5.2 Globulin 3.4 g/dL N 2-4 Albumin/Globulin Ratio 1.3 N 1-3 Total Bilirubin 0.70 mg/dL N 0.2-1.0 Alkaline Phosphatase 62 U/L N 34-104 Alt 24 U/L N 7-52 Ast 24 U/L N 13-39 Egfr Non- 95.4 N >60 Egfr 122.7 N >60 19 CBC Auto Diff 12/17/2015 [facility] [place] White Blood Count 8.1 10^3/uL N 3.5-10.8 Red Blood Count 4.65 10^6/uL N 4.0-5.4 Hemoglobin 14.5 g/dL N 14.0-18.0 Hematocrit 43 % N 42-52 Mean Corpuscular Volume 93 fL N 80-94 Mean Corpuscular Hemoglobin 31 pg N 27-31 Mean Corpuscular HGB Conc 34 g/dL N 31-36 Red Cell Distribution Width 13 % N 10.5-15 Platelet Count 204 10^3/uL N 150-450 Mean Platelet Volume 9 um3 N 7.4-10.4 Abs Neutrophils 6.0 10^3/uL N 1.5-7.7 Abs Lymphocytes 0.9 10^3/uL Low 1.0-4.8 Abs Monocytes 0.8 10^3/uL N 0-0.8 Abs Eosinophils 0.4 10^3/uL N 0-0.6 Abs Basophils 0.1 10^3/uL N 0-0.2 Abs Nucleated RBC 0 10^3/uL N Granulocyte % 74.1 % N 38-83 Lymphocyte % 10.8 % Low 25-47 Monocyte % 9.6 % High 1-9 Eosinophil % 4.7 % N 0-6 Basophil % 0.8 % N 0-2 Nucleated Red Blood Cells % 0 N Laboratory test 04/25/2015 [facility] [place] Rapid Strep Negative N Negative 20 finding Molecular Laboratory test 04/25/2015 [facility] [place] Rapid Strep A SEE RESULT BELOW 21 finding Rapid Influenza A & 04/25/2015 [facility] [place] Influenza A NEGATIVE N Negative 22 B Molecular Molecular Influenza B Molecular NEGATIVE N Negative Laboratory test 04/25/2015 [facility] [place] Rapid Influenza A SEE RESULT 23 finding & B Antigen BELOW Rapid Influenza A B 04/03/2014 [facility] [place] Rapid Influenza A (SEE NOTE) 24 Antigen B Antigen CBC Auto Diff 04/03/2014 [facility] [place] White Blood Count 20.3 10^3/uL High 4.8- 10.8 Red Blood Count 4.96 10^6/uL N 4.0-5.4 Hemoglobin 16.0 g/dL N 14.0-18.0 Hematocrit 47 % N 42-52 Mean Corpuscular Volume 94 fL N 80-94 Mean Corpuscular Hemoglobin 32 pg High 27-31 Mean Corpuscular HGB Conc 34 g/dL N 31-36 Red Cell Distribution Width 13 % N 10.5-15 Platelet Count 247 10^3/uL N 150-450 Mean Platelet Volume 9 um3 N 7.4-10.4 Abs Neutrophils 18.2 10^3/uL High 1.5-7.7 Abs Lymphocytes 1.1 10^3/uL N 1.0-4.8 Abs Monocytes 0.9 10^3/uL High 0-0.8 Abs Eosinophils 0 10^3/uL N 0-0.6 Abs Basophils 0.1 10^3/uL N 0-0.2 Abs Nucleated RBC 0.01 10^3/uL N Granulocyte % 89.6 % High 38-83 Lymphocyte % 5.6 % Low 25-47 Monocyte % 4.5 % N 1-9 Eosinophil % 0.1 % N 0-6 Basophil % 0.2 % N 0-2 Nucleated Red Blood Cells % 0.1 N Laboratory test finding 04/03/2014 [facility] [place] Lactic Acid 1.3 mmol/L N 0.5-2.2 Comp Metabolic Panel 04/03/2014 [facility] [place] Sodium 131 mmol/L Low 133-145 Potassium 3.7 mmol/L N 3.5-5.0 Chloride 101 mmol/L N 101-111 Co2 Carbon Dioxide 22 mmol/L N 22-32 Anion Gap 8 mmol/L N 2-11 Glucose 135 mg/dL High 70-100 Blood Urea Nitrogen 15 mg/dL N 6-24 Creatinine 1.13 mg/dL N 0.67-1.17 BUN/Creatinine Ratio 13.3 N 8-20 Calcium 9.3 mg/dL N 8.6-10.3 Total Protein 7.6 g/dL N 6.4-8.9 Albumin 4.3 g/dL N 3.2-5.2 Globulin 3.3 g/dL N 2-4 Albumin/Globulin Ratio 1.3 N 1-3 Total Bilirubin 0.80 mg/dL N 0.2-1.0 Alkaline Phosphatase 59 U/L N 34-104 Alt 16 U/L N 7-52 Ast 13 U/L N 13-39 Egfr Non- 69.3 N >60 Egfr 89.1 N >60 25 Laboratory test finding 04/03/2014 [facility] Troponin I 0.02 ng/mL N <0.03 26 D Dimer Quantitative < 200 ng/mL N Less Than 230 27 Manual Differential 04/03/2014 [facility] Immature Granulocytes 12 % High 0-9 Neutrophil % 73 % N 38-83 Band % 12 % High 0-8 Lymphocytes % 7 % Low 25-47 Monocytes % 6 % N 0-13 Basophil % 1 % N 0-2 Reactive Lymph % 1 % N 0-6 RBC Morphology Normal N Normal Laboratory test finding 12/09/2011 [facility] ([facility]) Free T4 1.06 ng/dL 0.75-1.54 Comprehensive Metabolic 12/09/2011 [facility] ([facility]) Albumin 4.5 g/dL 3.8-5.5 Prof Alk. Phos. 59 U/L 22-95 Alt (SGPT) 42 U/L High 10-40 28 Ast (Sgot) 21 U/L 5-34 BUN 16 mg/dL 6-26 Calcium 8.6 mg/dL 8.6-10.2 Chloride 100 mEq/L 94-112 Creatinine 1.1 mg/dL 0.6-1.4 Carbon Dioxide 25 mEq/L 21-32 Glucose 78 mg/dL 70-105 Sodium 139 mEq/L 134-149 Total Bilirubin 0.4 mg/dL 0.2-1.3 Total Protein 6.5 g/dL 6.3-8.1 Potassium 4.1 mEq/L 3.6-5.5 Globulin 2.1 g/dL 2.0-4.8 A/G Ratio 2.2 Calc 0.6-2.2 BUN/Creat Ratio 14.7 Calc 8.0-36.0 CBC Electronic (a) 12/09/2011 [facility] Medicine WBC 8.9 3.6-9.6 (607)- - RBC 4.80 3.90-5.70 Hemoglobin ([facility]ma/CMC/CTX) 14.7 g/dL 12.1 - 17.2 Hematocrit (Fma/CMC/CTX) 45.4 % 36.1 - 50.3 Platelets 294 10^3/ul 150-400 Lymph% 30.1 20.5-51.1 Mixed% 4.1 Neutrophils % 65.8 Mean Corpuscular Vol 95 82.2-97.4 Mean Corpuscular Hemoglobin 30.5 27.6-33.3 Mean Corpuscular Hemo Concen 32.3 32.0-36.0 RDW 13.6 11.6-13.7 Mean Platelet Volume 7.6 6.5-11.0 Arterial Blood Gas 11/27/2011 [facility] [place] PH Arterial 7.38 7.35-7.45 Pco2 Arterial 36 mmHg 35-45 Po2 Arterial 65 mmHg Low 80-100 O2 Saturation Arterial 95.2 % 95-98 Base Excess Arterial -3.2 Low -2.0-2.0 29 Hco3 Arterial 22.3 mmol/L 19-31 30 Comp Metabolic Panel 11/27/2011 [facility] [place] Sodium 136 mmol/L 133-145 Potassium 3.9 mmol/L 3.5-5.0 Chloride 106 mmol/L 101-111 Co2 Carbon Dioxide 23.0 mmol/L 22-32 Anion Gap 7.0 mmol/L 2-11 Glucose 97 mg/dL 70-100 Blood Urea Nitrogen 9 mg/dL 6-24 Creatinine 0.90 mg/dL 0.50-1.40 BUN/Creatinine Ratio 10.0 8-20 Calcium 9.0 mg/dL 8.1-9.9 Total Protein 6.9 GM/DL 6.2-8.1 Albumin 4.1 GM/DL 3.6-5.4 Globulin 2.8 GM/DL 2-4 Albumin/Globulin Ratio 1.5 1-3 Total Bilirubin 1.2 mg/dL High 0.1-1.0 31 Alkaline Phosphatase 53 U/L 30-110 Alt 31 U/L 14-54 Ast 27 U/L 12-42 Egfr Non- 91.3 >60 Egfr 117.4 >60 32 Laboratory test finding 11/27/2011 [facility] [place] Magnesium 2.1 mg/dL 1.7-2.6 Creatine Kinase 84 U/L 0-200 CKMB 11/27/2011 [facility] [place] CKMB In NG/ML 3.5 NG/ML 0.3-4.0 CKMB % 4.0 % 0-9 33 Laboratory test 11/27/2011 [facility] [place] Troponin I 0 NG/ML 34 finding CBC Auto Diff 11/27/2011 [facility] [place] White Blood Count 11.2 10^3/uL High 4.8- 10.8 Red Blood Count 4.99 10^6/uL 4.0-5.4 Hemoglobin 16.0 g/dL 14.0-18.0 Hematocrit 47 % 42-52 Mean Corpuscular Volume 94 fL 80-94 Mean Corpuscular Hemoglobin 32 pg High 27-31 Mean Corpuscular HGB Conc 34 g/dL 31-36 Red Cell Distribution Width 14 % 10.5-15 Platelet Count 225 10^3/uL 150-450 Mean Platelet Volume 10 um3 7.4-10.4 Abs Neutrophils 8.0 10^3/uL High 1.5-7.7 Abs Lymphocytes 1.6 10^3/uL 1.0-4.8 Abs Monocytes 0.7 10^3/uL 0-0.8 Abs Eosinophils 0.8 10^3/uL High 0-0.6 Abs Basophils 0.1 10^3/uL 0-0.2 Abs Nucleated RBC 0 10^3/uL Granulocyte % 71.2 % 38-83 Lymphocyte % 14.4 % Low 25-47 Monocyte % 5.8 % 1-9 Eosinophil % 7.3 % High 0-6 Basophil % 1.3 % 0-2 Nucleated Red Blood Cells % 0 Urinalysis W/Microscopic 11/04/2011 [facility] [place] Ua Color YELLOW Yellow Appearance-Urine CLEAR Clear Specific Viola-Ur 1.031 High 1.010-1.030 Esterase-Urine NEGATIVE Negative Nitrite NEGATIVE Negative [id number] NEGATIVE Negative Protein-Urine NEGATIVE Negative PH-Urine 5.5 5-9 Blood-Urine NEGATIVE Negative Ketones-Urine TRACE Abnormal Negative Bilirubin-Ur NEGATIVE Negative Glucose-Urine NEGATIVE Negative WBC-Urine NONE SEEN 0-5 RBC-Urine NONE SEEN 0-2 Epith Cells-Ur RARE None Bacteria-Urine NONE SEEN None CBC Auto Diff 11/04/2011 [facility] [place] White Blood Count 14.5 CUMM High 4.8-10.8 Red Cell Count 5.19 CUMM 4.6-6.2 Hemoglobin 16.4 g/dL 14.0-18.0 Hematocrit 49 % 42-52 Mean Corpuscular Volume 94 um3 80-94 Mean Corpuscular Hemoglob 32 pg High 27-31 Mean Corpuscular HGB Cone 34 g/dL 32-36 Redcell Distribution WDTH 13 % 10.5-15 Platelet Count 267 CUMM 150-450 Mean Platelet Volume 9.3 um3 7.4-10.4 Gran % 92.2 % High 38-83 Lymph % 6.5 % Low 20-45 Mononuclear % 0.9 % Low 1-9 Eosinophil % 0.1 % 0-6 Basophil % 0.3 % 0-2 Abs Lymphs 0.9 Low 1.0-4.8 Abs Mononuclear 0.1 0-0.8 Absolute Neutrophil Count 13.3 High 1.5-7.7 Abs Eosinophils 0 0-0.6 Abs Basophils 0 0-0.2 Comp Metabolic Panel 11/04/2011 [facility] [place] Sodium 137 mmol/L 135-145 Potassium 4.9 mmol/L 3.5-5.0 Chloride 106 mmol/L 101-111 Co2 (Carbon Dioxide) 24.0 mmol/L 22-32 Anion Gap 7.0 mmol/L 2-11 35 Glucose 127 mg/dL High 70-100 BUN 24 mg/dL 6-24 Creatinine 1.2 mg/dL 0.50-1.40 One Over Creatinine 0.83 BUN/Creatinine Ratio 20.0 8-20 Calcium 9.7 mg/dL 8.1-9.9 Total Protein 8.2 GM/DL High 6.2-8.1 Albumin 4.6 GM/DL 3.6-5.4 Globulin 3.6 GM/DL 2-4 Albumin/Globulin Ratio 1.3 1-3 Bilirubin Total 0.8 mg/dL 0.4-1.5 36 Alkaline Phosphatase 56 U/L 39-117 Alt (SGPT) 30 U/L 17-63 Ast (Sgot) 25 U/L 12-42 eGFR Non- 65.5 > 60 eGFR 84.2 > 60 37 Laboratory test finding 11/04/2011 [facility] [place] Amylase 48 U/L 20-120 38 Lipase 20 U/L Low 22-51 CBC Auto Diff 11/03/2011 [facility] [place] White Blood Count 9.2 CUMM 4.8-10.8 39 Red Cell Count 5.41 CUMM 4.6-6.2 Hemoglobin 17.0 g/dL 14.0-18.0 Hematocrit 50 % 42-52 Mean Corpuscular Volume 93 um3 80-94 Mean Corpuscular Hemoglob 31 pg 27-31 Mean Corpuscular HGB Cone 34 g/dL 32-36 Redcell Distribution WDTH 14 % 10.5-15 Platelet Count 257 CUMM 150-450 Mean Platelet Volume 9.5 um3 7.4-10.4 Gran % 85.8 % High 38-83 Lymph % 7.8 % Low 20-45 Mononuclear % 2.9 % 1-9 Eosinophil % 2.5 % 0-6 Basophil % 1.0 % 0-2 Abs Lymphs 0.7 Low 1.0-4.8 Abs Mononuclear 0.3 0-0.8 Absolute Neutrophil Count 7.9 High 1.5-7.7 Abs Eosinophils 0.2 0-0.6 Abs Basophils 0.1 0-0.2 Comp Metabolic Panel 11/03/2011 [facility] [place] Sodium 135 mmol/L 135-145 Potassium 5.2 mmol/L High 3.5-5.0 Chloride 104 mmol/L 101-111 Co2 (Carbon Dioxide) 22.0 mmol/L 22-32 Anion Gap 9.0 mmol/L 2-11 40 Glucose 100 mg/dL 70-100 BUN 19 mg/dL 6-24 Creatinine 1.1 mg/dL 0.50-1.40 One Over Creatinine 0.90 BUN/Creatinine Ratio 17.3 8-20 Calcium 9.8 mg/dL 8.1-9.9 Total Protein 7.2 GM/DL 6.2-8.1 Albumin 4.5 GM/DL 3.6-5.4 Globulin 2.7 GM/DL 2-4 Albumin/Globulin Ratio 1.7 1-3 Bilirubin Total 1.2 mg/dL 0.4-1.5 41 Alkaline Phosphatase 62 U/L 39-117 Alt (SGPT) 32 U/L 17-63 Ast (Sgot) 33 U/L 12-42 eGFR Non- 72.4 > 60 eGFR 93.1 > 60 42 Laboratory test finding 11/03/2011 [facility] [place] Amylase 45 U/L 20-120 43 Lipase 24 U/L 22-51 Rapid Influenza A 05/08/2011 [facility] M <SEE 44 B Antigen NOTE> CBC No Diff 05/08/2011 [facility] White Blood 14.4 CUMM High 4.8-10.8 Count Red Cell Count 5.17 CUMM 4.6-6.2 Hemoglobin 16.3 g/dL 14.0-18.0 Hematocrit 48 % 42-52 Mean Corpuscular Volume 93 um3 80-94 Mean Corpuscular Hemoglob 32 pg High 27-31 Mean Corpuscular HGB Cone 34 g/dL 32-36 Redcell Distribution WDTH 14 % 10.5-15 Platelet Count 205 CUMM 150-450 Mean Platelet Volume 9.4 um3 7.4-10.4 Comp Metabolic Panel 05/08/2011 [facility] Sodium 142 mmol/L 135-145 Potassium 4.2 mmol/L 3.5-5.0 Chloride 108 mmol/L 101-111 Co2 (Carbon Dioxide) 25.0 mmol/L 22-32 Anion Gap 9.0 mmol/L 2-11 45 Glucose 142 mg/dL High 70-100 BUN 17 mg/dL 6-24 Creatinine 0.9 mg/dL 0.50-1.40 One Over Creatinine 1.11 BUN/Creatinine Ratio 18.9 8-20 Calcium 9.0 mg/dL 8.1-9.9 Total Protein 7.1 GM/DL 6.2-8.1 Albumin 4.4 GM/DL 3.6-5.4 Globulin 2.7 GM/DL 2-4 Albumin/Globulin Ratio 1.6 1-3 Bilirubin Total 0.7 mg/dL 0.4-1.5 46 Alkaline Phosphatase 55 U/L 39-117 Alt (SGPT) 40 U/L 17-63 Ast (Sgot) 33 U/L 12-42 eGFR Non- 91.3 > 60 eGFR 117.4 > 60 47 Comp Metabolic Panel 05/08/2011 [facility] [place] Sodium 136 mmol/L 135-145 Potassium 3.9 mmol/L 3.5-5.0 Chloride 105 mmol/L 101-111 Co2 (Carbon Dioxide) 22.0 mmol/L 22-32 Anion Gap 9.0 mmol/L 2-11 48 Glucose 105 mg/dL High 70-100 BUN 10 mg/dL 6-24 Creatinine 0.8 mg/dL 0.50-1.40 One Over Creatinine 1.25 BUN/Creatinine Ratio 12.5 8-20 Calcium 8.8 mg/dL 8.1-9.9 Total Protein 7.2 GM/DL 6.2-8.1 Albumin 4.1 GM/DL 3.6-5.4 Globulin 3.1 GM/DL 2-4 Albumin/Globulin Ratio 1.3 1-3 Bilirubin Total 1.0 mg/dL 0.4-1.5 49 Alkaline Phosphatase 59 U/L 39-117 Alt (SGPT) 38 U/L 17-63 Ast (Sgot) 33 U/L 12-42 eGFR Non- 104.5 > 60 eGFR 134.4 > 60 50 Laboratory test finding 05/08/2011 [facility] [place] PTT (Aptt) 27.4 SEC 25.1-38.5 D Dimer Quantitative < 200 NG/ML Less Than 230 51 Protime 05/08/2011 [facility] Inr 0.95 0.88-1.13 52 Protime 11.3 SEC 10.3-13.5 53 Manual Differential 05/08/2011 [facility] Polysegmented Neutrophil 85 % High 38- 83 Band Neutrophil 3 % 0-8 Lymphocyte 5 % Low 25-47 Monocyte 2 % 0-13 Eosinophil 4 % 0-6 Basophil 1 % 0-2 Absolute Neutrophil Count 6.6 Manual Diff Comments (SEE NOTE) 54 RBC Morphology NORMAL Laboratory test finding 05/08/2011 [facility] Troponin-I 0.01 NG/ML 0-0.06 55 CBC Auto Diff 05/08/2011 [facility] [place] White Blood Count 7.6 CUMM 4.8-10.8 Red Cell Count 5.03 CUMM 4.6-6.2 Hemoglobin 16.3 g/dL 14.0-18.0 Hematocrit 46 % 42-52 Mean Corpuscular Volume 91 um3 80-94 Mean Corpuscular Hemoglob 32 pg High 27-31 Mean Corpuscular HGB Cone 36 g/dL 32-36 Redcell Distribution WDTH 14 % 10.5-15 Platelet Count 177 CUMM 150-450 56 Mean Platelet Volume 10.1 um3 7.4-10.4 Comments UWBC Comp Metabolic Panel 11/21/2010 [facility] Sodium 136 mmol/L 135-145 Potassium 3.5 mmol/L 3.5-5.0 Chloride 102 mmol/L 101-111 Co2 (Carbon Dioxide) 25.0 mmol/L 22-32 Anion Gap 9.0 mmol/L 2-11 57 Glucose 94 mg/dL 70-100 BUN 12 mg/dL 6-24 Creatinine 0.8 mg/dL 0.50-1.40 One Over Creatinine 1.25 BUN/Creatinine Ratio 15.0 8-20 Calcium 9.1 mg/dL 8.1-9.9 Total Protein 7.6 GM/DL 6.2-8.1 Albumin 4.5 GM/DL 3.6-5.4 Globulin 3.1 GM/DL 2-4 Albumin/Globulin Ratio 1.5 1-3 Bilirubin Total 1.0 mg/dL 0.4-1.5 58 Alkaline Phosphatase 60 U/L 39-117 Alt (SGPT) 43 U/L 17-63 Ast (Sgot) 32 U/L 12-42 eGFR Non- 105.0 > 60 eGFR 135.1 > 60 59 Laboratory test finding 11/21/2010 [facility] Troponin-I 0 NG/ML 0-0.06 60 Manual Differential 11/21/2010 [facility] [place] Polysegmented Neutrophil 78 % 38-83 Band Neutrophil 1 % 0-8 Lymphocyte 8 % Low 25-47 Monocyte 5 % 0-13 Eosinophil 7 % High 0-6 Atypical Lymph 1 % 0-6 Absolute Neutrophil Count 8.1 Anisocytosis SLIGHT CBC Auto Diff 11/21/2010 [facility] [place] White Blood Count 10.3 CUMM 4.8-10.8 Red Cell Count 5.30 CUMM 4.6-6.2 Hemoglobin 17.4 g/dL 14.0-18.0 Hematocrit 50 % 42-52 Mean Corpuscular Volume 94 um3 80-94 Mean Corpuscular Hemoglob 33 pg High 27-31 Mean Corpuscular HGB Cone 35 g/dL 32-36 Redcell Distribution WDTH 13 % 10.5-15 Platelet Count 215 CUMM 150-450 Mean Platelet Volume 8.9 um3 7.4-10.4 61 Laboratory test finding 08/11/2010 [facility] [place] Clotest NEGATIVE CBC Auto Diff 08/07/2010 [facility] White Blood Count 10.1 CUMM 4.8-10.8 Red Cell Count 4.95 CUMM 4.6-6.2 Hemoglobin 16.2 g/dL 14.0-18.0 Hematocrit 47 % 42-52 Mean Corpuscular Volume 96 um3 High 80-94 Mean Corpuscular Hemoglob 33 pg High 27-31 Mean Corpuscular HGB Cone 34 g/dL 32-36 Redcell Distribution WDTH 14 % 10.5-15 Platelet Count 207 CUMM 150-450 Mean Platelet Volume 8.4 um3 7.4-10.4 62 Manual Differential 08/07/2010 [facility] Polysegmented Neutrophil 74 % 38-83 Band Neutrophil 6 % 0-8 Lymphocyte 5 % Low 25-47 Monocyte 3 % 0-13 Eosinophil 8 % High 0-6 Atypical Lymph 4 % 0-6 Absolute Neutrophil Count 8.0 Anisocytosis SLIGHT Basic Metabolic Panel 08/07/2010 [facility] Sodium 140 mmol/L 135-145 Potassium 4.1 mmol/L 3.5-5.0 Chloride 106 mmol/L 101-111 Co2 (Carbon Dioxide) 28.0 mmol/L 22-32 Anion Gap 6.0 mmol/L 2-11 63 Glucose 116 mg/dL High 70-100 BUN 17 mg/dL 6-24 Creatinine 0.88 mg/dL 0.50-1.40 One Over Creatinine 1.10 BUN/Creatinine Ratio 19.3 8-20 Calcium 8.8 mg/dL 8.1-9.9 eGFR Non- 94.1 > 60 eGFR 121.0 > 60 64 Laboratory test 08/07/2010 [facility] Troponin-I 0.01 NG/ML 0-0.06 65 finding Laboratory test 06/12/2010 [facility] ([facility]) TSH 3.68 mIU/L 0.50- 6.00 finding Comprehensive 06/12/2010 [facility] ([facility]) Albumin 4.6 g/dL 3.8-5.5 Metabolic Prof Alk. Phos. 65 U/L 22-95 Alt (SGPT) 28 U/L 10-40 Ast (Sgot) 25 U/L 5-34 BUN 15 mg/dL 6-26 Calcium 9.6 mg/dL 8.6-10.2 Chloride 107 mEq/L 94-112 Creatinine 1.0 mg/dL 0.6-1.4 Carbon Dioxide 25 mEq/L 21-32 Glucose 88 mg/dL 70-105 Sodium 143 mEq/L 134-149 Total Bilirubin 0.7 mg/dL 0.2-1.3 Total Protein 7.0 g/dL 6.3-8.1 Potassium 4.0 mEq/L 3.6-5.5 Globulin 2.4 g/dL 2.0-4.8 A/G Ratio 1.9 Calc 0.6-2.2 BUN/Creat Ratio 14.7 Calc 8.0-36.0 Lipid Profile 06/12/2010 [facility] ([facility]) Cholesterol 154 mg/dL 120- 200 HDL 37 mg/dL 30-70 Triglycerides 90 mg/dL 30-200 HDL Risk Factor 4.2 CALC High 0.0-4.0 LDL (Calculated) 100 CALC 0-129 VLDL (Calculated) 18 mg/dL 0-50 Laboratory test 06/12/2010 [facility] Helicobactor Pylori POSITIVE # finding (607)- - CBC Electronic 06/12/2010 [facility] WBC 10.3 High 3.6-9. (a) (607)- - 6 RBC 5.00 3.90-5.70 Hemoglobin (Fma/CMC/CTX) 16.3 g/dL 12.1 - 17.2 Hematocrit (Fma/CMC/CTX) 47.2 % 36.1 - 50.3 Platelets 246 10^3/ul 150-400 Lymph% 14.0 Low 20.5-51.1 Mixed% 4.1 Neutrophils % 81.9 Mean Corpuscular Vol 94 82.2-97.4 Mean Corpuscular Hemoglobin 32.6 27.6-33.3 Mean Corpuscular Hemo Concen 34.6 32.0-36.0 RDW 12.0 11.6-13.7 Mean Platelet Volume 8.6 6.5-11.0 Basic Metabolic Panel 12/21/2009 [facility] Sodium 140 mmol/L 135-145 Potassium 3.9 mmol/L 3.5-5.0 Chloride 106 mmol/L 101-111 Co2 (Carbon Dioxide) 27.0 mmol/L 22-32 Anion Gap 7.0 mmol/L 2-11 66 Glucose 88 mg/dL 70-100 67 BUN 10 mg/dL 6-24 Creatinine 0.90 mg/dL 0.50-1.40 One Over Creatinine 1.10 BUN/Creatinine Ratio 11.1 8-20 Calcium 9.0 mg/dL 8.1-9.9 eGFR Non- 97.4 > 60 eGFR 117.9 > 60 68 CBC With Electronic Diff 12/21/2009 [facility] White Blood Count 8.5 CUMM 4.8- 10.8 Red Cell Count 5.36 CUMM 4.6-6.2 Hemoglobin 17.4 g/dL 14.0-18.0 Hematocrit 51 % 42-52 Mean Corpuscular Volume 95 um3 High 80-94 Mean Corpuscular Hemoglob 33 pg High 27-31 Mean Corpuscular HGB Cone 34 g/dL 32-36 Redcell Distribution WDTH 13 % 10.5-15 Platelet Count 254 CUMM 150-450 Mean Platelet Volume 8.0 um3 7.4-10.4 Gran % 72.9 % 38-83 Lymph % 15.2 % Low 25-47 Mononuclear % 6.5 % 1-9 Eosinophil % 4.8 % 0-6 Basophil % 0.6 % 0-2 Abs Lymphs 1.3 1.0-4.8 Abs Mononuclear 0.6 0-0.8 Absolute Neutrophil Count 6.2 1.5-7.7 Abs Eosinophils 0.4 0-0.6 Abs Basophils 0.1 0-0.2 69 CBC With Electronic Diff Stat 06/11/2009 [facility] White Blood Count 9.3 CUMM 4.8-10.8 Red Cell Count 5.49 CUMM 4.6-6.2 Hemoglobin 17.7 g/dL 14.0-18.0 Hematocrit 52 % 42-52 Mean Corpuscular Volume 94 um3 80-94 Mean Corpuscular Hemoglob 32 pg High 27-31 Mean Corpuscular HGB Cone 34 g/dL 32-36 Redcell Distribution WDTH 14 % 10.5-15 Platelet Count 240 CUMM 150-450 Mean Platelet Volume 8.4 um3 7.4-10.4 Gran % 75.3 % 38-83 Lymph % 10.2 % Low 25-47 Mononuclear % 10.8 % High 1-9 Eosinophil % 3.4 % 0-6 Basophil % 0.3 % 0-2 Abs Lymphs 0.9 Low 1.0-4.8 Abs Mononuclear 1.0 High 0-0.8 Absolute Neutrophil Count 7.0 1.5-7.7 Abs Eosinophils 0.3 0-0.6 Abs Basophils 0 0-0.2 70 Comp Stat 06/11/2009 [facility] Sodium 136 mmol/L 135-145 Potassium 3.7 mmol/L 3.5-5.0 Chloride 102 mmol/L 101-111 Co2 (Carbon Dioxide) 22.0 mmol/L 22-32 Anion Gap 12.0 mmol/L High 2-11 71 Glucose 88 mg/dL 70-100 72 BUN 9 mg/dL 6-24 Creatinine 0.94 mg/dL 0.50-1.40 One Over Creatinine 1.00 BUN/Creatinine Ratio 9.6 8-20 Calcium 9.1 mg/dL 8.1-9.9 73 Total Protein 8.4 GM/DL High 6.2-8.1 Albumin 4.7 GM/DL 3.6-5.4 Globulin 3.7 GM/DL 2-4 Albumin/Globulin Ratio 1.3 1-3 Bilirubin Total 1.0 mg/dL 0.4-1.5 74 Alkaline Phosphatase 70 U/L 39-117 Alt (SGPT) 35 U/L 17-63 Ast (Sgot) 38 U/L 12-42 eGFR Non- 93.1 > 60 eGFR 112.6 > 60 75 Wound Culture 12/15/2006 [facility] Gram Stain NO EPI, NO 76 28 [facility] Additional WBC, <[place] [address] NOTE> [phone] Wound Culture Staphylococcus a <SEE NOTE> 77 1 Because ethnic data is not always readily available, this report includes an eGFR for both -Americans and non- Americans. The National Kidney Disease Education Program (NKDEP) does not endorse the use of the MDRD equation for patients that are not between the ages of 18 and 70, are , have extremes of body size, muscle mass, or nutritional status, or are non- or non-. According to the National Kidney Foundation, irrespective of diagnosis, the stage of the disease is based on the level of kidney function: Stage Description GFR(mL/min/1.73 m(2)) 1 Kidney damage with normal or decreased GFR 90 2 Kidney damage with mild decrease in GFR 60-89 3 Moderate decrease in GFR 30-59 4 Severe decrease in GFR 15-29 5 Kidney failure <15 (or dialysis) 2 [facility] Severe Sepsis and Septic Shock Management Bundle Measure requires all lactic acids initially measuring >2.0 mmol/L be repeated. 3 SEE RESULT BELOW Name: CHASITY DELANEY : [address]: Rupinder Paige MD Acct: [id number] Unit: [id number] AGE: 52 Location: [place] [id number]- Re04/03/18 Dis: 04/05/18 SEX: M Status: DIS IN SPEC: [id number] KEYA: 04/03/18-[address] [facility] [address]: Ricci Berger MD REQ: [id number] RECD: 04/03/18 STATUS: CLARKE LARA DR: Venkat Fabian MD _ SOURCE: BLOOD,VENO SPDESC: ORDERED: Blood Cult COMMENTS: Blood Culture bottle(s) are underfilled. Testing may be less sensitive due to less than recommended fill level. Verbal to [id number] by [id number] at 0359 on 04/03/18. AEROBIC BOTTLE ONLY Procedure Result Reported Site Aerobic Culture Bottle Final 04/08/18- 0353 ML No Growth Day 5 * ML - Main Lab . END OF REPORT DEPARTMENT OF PATHOLOGY, [address] [place] [place] [address] Fernando Jamison M.D. Director [facility] # [id number] 4 Reference ranges based on room air. 5 Metal Weather Stripper: [id number] 6 SEE RESULT BELOW Name: CHASITY DELANEY : [address]: Ricci Berger MD Acct: [id number] Unit: [id number] AGE: 52 Location: ED Re04/03/18 SEX: M Status: REG ER SPEC: [id number] KEYA: 04/03/[address] [facility] [address]: Ricci Berger MD REQ: [id number] RECD: 04/03/18 STATUS: CLARKE LARA DR: Venkat Fabian MD _ SOURCE: NASAL SPDESC: ORDERED: Flu A B Request Procedure Result Reported Site Rapid Influenza A B Request Final 04/03/18336 ML Specimen received for Influenza A/B Molecular testing * ML - Main Lab . END OF REPORT DEPARTMENT OF PATHOLOGY, [address] [place] [address] Fernando Jamison M.D. Director [facility] # [id number] 7 Because ethnic data is not always readily available, this report includes an eGFR for both -Americans and non- Americans. The National Kidney Disease Education Program (NKDEP) does not endorse the use of the MDRD equation for patients that are not between the ages of 18 and 70, are , have extremes of body size, muscle mass, or nutritional status, or are non- or non-. According to the National Kidney Foundation, irrespective of diagnosis, the stage of the disease is based on the level of kidney function: Stage Description GFR(mL/min/1.73 m(2)) 1 Kidney damage with normal or decreased GFR 90 2 Kidney damage with mild decrease in GFR 60-89 3 Moderate decrease in GFR 30-59 4 Severe decrease in GFR 15-29 5 Kidney failure <15 (or dialysis) 8 Because ethnic data is not always readily available, this report includes an eGFR for both -Americans and non- Americans. The National Kidney Disease Education Program (NKDEP) does not endorse the use of the MDRD equation for patients that are not between the ages of 18 and 70, are , have extremes of body size, muscle mass, or nutritional status, or are non- or non-. According to the National Kidney Foundation, irrespective of diagnosis, the stage of the disease is based on the level of kidney function: Stage Description GFR(mL/min/1.73 m(2)) 1 Kidney damage with normal or decreased GFR 90 2 Kidney damage with mild decrease in GFR 60-89 3 Moderate decrease in GFR 30-59 4 Severe decrease in GFR 15-29 5 Kidney failure <15 (or dialysis) 9 [facility] Severe Sepsis and Septic Shock Management Bundle Measure requires all lactic acids initially measuring >2.0 mmol/L be repeated. 10 SEE RESULT BELOW Name: CHASITY DELANEY : [address]: Sahil Hernandez MD Acct: [id number] Unit: [id number] AGE: 51 Location: ED Re11/02/17 SEX: M Status: DEP ER SPEC: [id number] KEYA: 11/02/[address] [facility] [address]: Sahil Hernandez MD REQ: [id number] RECD: 11/02/17 STATUS: CLARKE LARA DR: Venkat Fabian MD _ SOURCE: BLOOD,VENO SPDES: ORDERED: Blood Cult Procedure Result Reported Site Aerobic Culture Bottle Final 11/07/17- 1251 ML No Growth Day 5 Anaerobic Culture Bottle Final 11/07/17- 1251 ML No Growth Day 5 * ML - Main Lab . END OF REPORT DEPARTMENT OF PATHOLOGY, [address] [place] [id number] eFrnando Jamison M.D. Director [facility] # [id number] 11 SEE RESULT BELOW Name: CHASITY DELANEY Ghada : [address]: Sahil Hernandez MD Acct: [id number] Unit: [id number] AGE: 51 Location: ED Re11/02/17 SEX: M Status: REG ER SPEC: [id number] KEYA: 11/02/[address] [facility] [address]: Sahil Hernandez MD REQ: [id number] RECD: 11/02/17 STATUS: CLARKE LARA DR: Venkat Fabian MD _ SOURCE: NASAL SPDESC: ORDERED: Flu A B Request Procedure Result Reported Site Rapid Influenza A B Request Final 11/02/17- 1123 ML Specimen received for Influenza A/B Molecular testing * ML - Main Lab . END OF REPORT DEPARTMENT OF PATHOLOGY, [address] [place] [address] Fernando Jamison M.D. Director [facility] # [id number] 12 Metal Weather Stripper: [id number] 13 Because ethnic data is not always readily available, this report includes an eGFR for both -Americans and non- Americans. The National Kidney Disease Education Program (NKDEP) does not endorse the use of the MDRD equation for patients that are not between the ages of 18 and 70, are , have extremes of body size, muscle mass, or nutritional status, or are non- or non-. According to the National Kidney Foundation, irrespective of diagnosis, the stage of the disease is based on the level of kidney function: Stage Description GFR(mL/min/1.73 m(2)) 1 Kidney damage with normal or decreased GFR 90 2 Kidney damage with mild decrease in GFR 60-89 3 Moderate decrease in GFR 30-59 4 Severe decrease in GFR 15-29 5 Kidney failure <15 (or dialysis) 14 SEE RESULT BELOW Name: CHASITY DELANEY : [address]: Primo Nye Acct: [id number] Unit: [id number] AGE: 50 Location: ED Re01/27/16 SEX: M Status: REG ER SPEC: [id number] KEYA: 01/27/16-[address]: Rohit Heart MD REQ: [id number] RECD: 01/27/16 STATUS: COMP KATHERINHR DR: Venkat Fabian MD _ SOURCE: NASAL SPDESC: ORDERED: Flu A B Request Procedure Result Reported Site Rapid Influenza A B Request Final 01/27/16- 1012 ML Specimen received for Influenza A/B Molecular testing * ML - MAIN LAB ([facility]) . END OF REPORT * ML=Testing performed at Main Lab DEPARTMENT OF PATHOLOGY, [address] [place] [address] Fernando Jamison M.D. Director [facility] # [id number] 15 Metal Weather Stripper: [id number] GLORY FINNEGAN 16 >100 to <200 pg/mL: likely compensated congestive heart failure (CHF) 200 to 400 pg/mL: likely moderate CHF >400 pg/mL: likely moderate to severe CHF 17 NOTE: Critical Troponin is now >0.03 ng/mL. 99th percentile=0.04 ng/mL Troponin results at [facility] and [facility] are not interchangeable. 18 [facility] Severe Sepsis and Septic Shock Management Bundle Measure requires all lactic acids initially measuring >2.0 mmol/L be repeated. 19 Because ethnic data is not always readily available, this report includes an eGFR for both -Americans and non- Americans. The National Kidney Disease Education Program (NKDEP) does not endorse the use of the MDRD equation for patients that are not between the ages of 18 and 70, are , have extremes of body size, muscle mass, or nutritional status, or are non- or non-. According to the National Kidney Foundation, irrespective of diagnosis, the stage of the disease is based on the level of kidney function: Stage Description GFR(mL/min/1.73 m(2)) 1 Kidney damage with normal or decreased GFR 90 2 Kidney damage with mild decrease in GFR 60-89 3 Moderate decrease in GFR 30-59 4 Severe decrease in GFR 15-29 5 Kidney failure <15 (or dialysis) 20 Metal Weather Stripper: [id number] MAUREEN SILVEIRA Due to the increased sensitivity of molecular testing, reflex cultures are no longer performed. 21 SEE RESULT BELOW Name: CHASITY DELANEY : [address]: Emerson Hayes MD Acct: [id number] Unit: [id number] AGE: 49 Location: ED Re04/25/15 SEX: M Status: REG ER SPEC: [id number] KEYA: 04/25/15-[address] [facility] [address]: Pramod MUÑOZ REQ: [id number] RECD: 04/25/15 STATUS: CLARKE LARA DR: Venkat Hayes MD _ SOURCE: THROAT SPDESC: ORDERED: Strep A Request Procedure Result Reported Site Rapid Strep A Request Final 04/25/15- 1514 ML Specimen received for Rapid Strep A Molecular testing * ML - MAIN LAB ([facility]) . END OF REPORT * ML=Testing performed at Main Lab DEPARTMENT OF PATHOLOGY, [address] [place] [address] Fernando Jamison M.D. Director [facility] # [id number] 22 Metal Weather Stripper: [id number] GLORY FINNEGAN 23 SEE RESULT BELOW Name: CHASITY DELANEY : [address]: Primo Rogel Physic Acct: [id number] Unit: [id number] AGE: 49 Location: ED Re04/25/15 SEX: M Status: REG ER SPEC: [id number] KEYA: 04/25/15-[address] [facility] [address]: Fernando Pickett DO REQ: [id number] RECD: 04/25/15-1304 STATUS: CLARKE LARA DR: [facility] Venkat Fabian MD _ SOURCE: NASAL SPDESC: ORDERED: Flu A B Request Procedure Result Reported Site Rapid Influenza A B Request Final 04/25/15- 1324 ML Specimen received for Influenza A/B Molecular testing * ML - MAIN LAB ([facility]) . END OF REPORT * ML=Testing performed at Main Lab DEPARTMENT OF PATHOLOGY, [facility] [employer] [place], [place] [address] Fernando Jamison M.D. Director [facility] # [id number] 24 RUN DATE: 04/03/14 [facility] LAB LIVE PAGE 1 RUN TIME: 436 [facility] [employer] [place], [place] [address] Specimen Inquiry Name: CHASITY DELANEY : [address]: Rohit Heart MD Acct: [id number] Unit: [id number] AGE: 48 Location: ED Re04/03/14 SEX: M Status: REG ER SPEC: [id number] KEYA: 04/03/14-[address]: Emerson Cruz MD REQ: [id number] RECD: 04/03/14-1827 STATUS: CLARKE [facility] DR: Venkat Heart MD _ SOURCE: [place] FALLSRohan [facility]: ORDERED: Rapid Flu A B Procedure Result Verified Site Rapid Influenza A B Antigen Final 04/03/14- 1847 ML Organism 1 Negative Influenza A B Antigen testing by enzyme immunoassay. Cell culture testing can be performed to confirm negative test results and to assist in detecting other viruses that can produce similar clinical symptoms. Please notify Microbiology Lab if further testing is desired. END OF REPORT * ML=Testing performed at Main Lab DEPARTMENT OF PATHOLOGY, [address] [place] [address] Fernando Jamison M.D. Director [facility] # [id number] 25 Because ethnic data is not always readily available, this report includes an eGFR for both -Americans and non- Americans. The National Kidney Disease Education Program (NKDEP) does not endorse the use of the MDRD equation for patients that are not between the ages of 18 and 70, are , have extremes of body size, muscle mass, or nutritional status, or are non- or non-. According to the National Kidney Foundation, irrespective of diagnosis, the stage of the disease is based on the level of kidney function: Stage Description GFR(mL/min/1.73 m(2)) 1 Kidney damage with normal or decreased GFR 90 2 Kidney damage with mild decrease in GFR 60-89 3 Moderate decrease in GFR 30-59 4 Severe decrease in GFR 15-29 5 Kidney failure <15 (or dialysis) 26 Reference Range and Interpretation: TnI (ng/mL) Interpretation Less Than 0.03 ng/mL Not supportive of diagnosis of [place] 0.03 - 0.50 ng/mL Indeterminate: suggest serial studies if clinically indicated. Greater than 0.5 ng/mL Consistent with diagnosis of [place] 27 Please note: The following may produce a false positive D Dimer test: - Rheumatoid factor greater than 60 IU/ml - Plasma hemoglobin greater than 0.05 gm/dl - Bilirubin greater than 50 mg/dl - Lipids greater than 1000 mg/dl - FDP greater than 20 ug/ml 28 result tammi;d 29 Reference ranges based on room air. 30 Verbal to CHA HILLS/LEON by [id number] at 1633 on 11/27/11. Results read back accurately. 31 A metabolite of Naproxen, O-desmethylnaproxen, has been shown to interfere with the Jendrassik-Aidan method for measuring total bilirubin. Samples from patients who have taken Naproxen have shown spurious elevation in total bilirubin levels. 32 Because ethnic data is not always readily available, this report includes an eGFR for both -Americans and non- Americans. The National Kidney Disease Education Program (NKDEP) does not endorse the use of the MDRD equation for patients that are not between the ages of 18 and 70, are , have extremes of body size, muscle mass, or nutritional status, or are non- or non-. According to the National Kidney Foundation, irrespective of diagnosis, the stage of the disease is based on the level of kidney function: Stage Description GFR(mL/min/1.73 m(2)) 1 Kidney damage with normal or decreased GFR 90 2 Kidney damage with mild decrease in GFR 60-89 3 Moderate decrease in GFR 30-59 4 Severe decrease in GFR 15-29 5 Kidney failure <15 (or dialysis) 33 Interpretation %CK-MB; < 5% Not supportive of diagnosis of [place] 5 - <10% Indeterminate; suggest serial studies 10% or > Consistent with diagnosis of [place] 34 Reference Range and Interpretation: TnI (ng/ml) Interpretation Less Than 0.06 ng/mL Not supportive of diagnosis of [place] 0.06 - 0.50 ng/ml Indeterminate: suggest serial studies if clinically indicated. Greater than 0.5 ng/mL Consistent with diagnosis of [place] 35 Anion gap measurement may be of limited value in the presence of any alkalosis, especially in a combined acid base disorder. . 36 A metabolite of Naproxen, O-desmethylnaproxen, has been shown to interfere with the Jendrassik-Calera method for measuring total bilirubin. Samples from patients who have taken Naproxen have shown spurious elevation in total bilirubin levels. 37 Because ethnic data is not always readily available, this report includes an eGFR for both -Americans and non- Americans. The National Kidney Disease Education Program (NKDEP) does not endorse the use of the MDRD equation for patients that are not between the ages of 18 and 70, are , have extremes of body size, muscle mass, or nutritional status, or are non- or non-. According to the National Kidney Foundation, irrespective of diagnosis, the stage of the disease is based on the level of kidney function: Stage Description GFR(mL/min/1.73 m(2)) 1 Kidney damage with normal or decreased GFR 90 2 Kidney damage with mild decrease in GFR 60-89 3 Moderate decrease in GFR 30-59 4 Severe decrease in GFR 15-29 5 Kidney failure <15 (or dialysis) 38 PLEASE NOTE NEW REFERENCE RANGE. 39 COMMENTS: ' 40 Anion gap measurement may be of limited value in the presence of any alkalosis, especially in a combined acid base disorder. . 41 A metabolite of Naproxen, O-desmethylnaproxen, has been shown to interfere with the Jendrassik-Aidan method for measuring total bilirubin. Samples from patients who have taken Naproxen have shown spurious elevation in total bilirubin levels. 42 Because ethnic data is not always readily available, this report includes an eGFR for both -Americans and non- Americans. The National Kidney Disease Education Program (NKDEP) does not endorse the use of the MDRD equation for patients that are not between the ages of 18 and 70, are , have extremes of body size, muscle mass, or nutritional status, or are non- or non-. According to the National Kidney Foundation, irrespective of diagnosis, the stage of the disease is based on the level of kidney function: Stage Description GFR(mL/min/1.73 m(2)) 1 Kidney damage with normal or decreased GFR 90 2 Kidney damage with mild decrease in GFR 60-89 3 Moderate decrease in GFR 30-59 4 Severe decrease in GFR 15-29 5 Kidney failure <15 (or dialysis) 43 PLEASE NOTE NEW REFERENCE RANGE. 44 RUN DATE: 05/09/11 [facility] NMI LIVE PAGE 1 RUN TIME: 0011 Specimen Inquiry RUN USER: INTERFACE Name: CHASITY DELANEY Status: ALEX ER Re05/08/11 Age/Sex: 45/M Unit#: [id number] Location: LEON : 65 SPEC #: [id number] KEYA: 05/08/11 STATUS: COMP REQ #: [id number] RECD: 05/08/[address]: Rocco Linton MD,[facility] SOURCE: NASOPHARYN ENTR: 05/08/[address] [facility] [address]: Rui PHELPS,Venkat SPDC: ORDERED: RAPID FLU A B COMMENTS: VERBAL TO DIMA/LEON BY CHANDLER at 0009 on 05/09/11. Results read back accurately. Procedure Result Verified Site > RAPID INFLUENZA A B ANTIGEN Final 05/09/11- 0010 ML INFLUENZA A VIRUS ANTIGEN POSITIVE BY IMMUNOASSAY INFLUENZA B VIRUS ANTIGEN NEGATIVE BY IMMUNOASSAY Cell culture testing can be performed to confirm negative test results and to assist in detecting other viruses that can produce similar clinical symptoms. Please notify Microbiology Lab if further testing is desired. ML [facility] State Permit #[id number] [address] [place] [address] DEPARTMENT OF PATHOLOGY, [address] [place] [address] [facility] Permit #[id number] Fernando Jamison M.D. Director Susan Morin M.D. Crts 45 Anion gap measurement may be of limited value in the presence of any alkalosis, especially in a combined acid base disorder. . 46 A metabolite of Naproxen, O-desmethylnaproxen, has been shown to interfere with the Jendrassik-Calera method for measuring total bilirubin. Samples from patients who have taken Naproxen have shown spurious elevation in total bilirubin levels. 47 Because ethnic data is not always readily available, this report includes an eGFR for both -Americans and non- Americans. The National Kidney Disease Education Program (NKDEP) does not endorse the use of the MDRD equation for patients that are not between the ages of 18 and 70, are , have extremes of body size, muscle mass, or nutritional status, or are non- or non-. According to the National Kidney Foundation, irrespective of diagnosis, the stage of the disease is based on the level of kidney function: Stage Description GFR(mL/min/1.73 m(2)) 1 Kidney damage with normal or decreased GFR 90 2 Kidney damage with mild decrease in GFR 60-89 3 Moderate decrease in GFR 30-59 4 Severe decrease in GFR 15-29 5 Kidney failure <15 (or dialysis) 48 Anion gap measurement may be of limited value in the presence of any alkalosis, especially in a combined acid base disorder. . 49 A metabolite of Naproxen, O-desmethylnaproxen, has been shown to interfere with the Jendrassik-Aidan method for measuring total bilirubin. Samples from patients who have taken Naproxen have shown spurious elevation in total bilirubin levels. 50 Because ethnic data is not always readily available, this report includes an eGFR for both -Americans and non- Americans. The National Kidney Disease Education Program (NKDEP) does not endorse the use of the MDRD equation for patients that are not between the ages of 18 and 70, are , have extremes of body size, muscle mass, or nutritional status, or are non- or non-. According to the National Kidney Foundation, irrespective of diagnosis, the stage of the disease is based on the level of kidney function: Stage Description GFR(mL/min/1.73 m(2)) 1 Kidney damage with normal or decreased GFR 90 2 Kidney damage with mild decrease in GFR 60-89 3 Moderate decrease in GFR 30-59 4 Severe decrease in GFR 15-29 5 Kidney failure <15 (or dialysis) 51 Please note: The following may produce a false positive D Dimer test: - Rheumatoid factor greater than 1400 IU/ml - Plasma hemoglobin greater than 0.5 gm/dl - Bilirubin greater than 18 mg/dl - Triglycerides greater than 1327 mg/dl - FDP greater than 10 ug/ml . 52 Recommended INR for Patients on Oral Anticoagulants Prophylaxis 2.0 - 3.0 Treatment of thrombosis 2.0 - 3.0 Prevention of embolism 2.0 - 3.0 Prevention of embolism from prosthetic heart valves 2.5 - 3.5 53 DIAGNOSIS,TREATMENT,AND THERAPY MUST BE BASED ON THE INR VALUE ALONE. 54 RARE NRBC SEEN FEW FIBRIN STRANDS 55 New Reference Range and Interpretation effective 11/10/2001 TnI (ng/ml) INTERPRETATION Less Than 0.06 ng/mL NOT SUPPORTIVE OF DIAGNOSIS OF [place] 0.06 - 0.50 ng/ml INDETERMINATE: SUGGEST SERIAL STUDIES IF CLINICALLY INDICATED. Greater than 0.5 ng/mL CONSISTENT WITH DIAGNOSIS OF [place] . 56 NO OBVIOUS CLUMPS SEEN FEW FIBRIN STRANDS 57 Anion gap measurement may be of limited value in the presence of any alkalosis, especially in a combined acid base disorder. . 58 A metabolite of Naproxen, O-desmethylnaproxen, has been shown to interfere with the Jendrassik-Calera method for measuring total bilirubin. Samples from patients who have taken Naproxen have shown spurious elevation in total bilirubin levels. 59 Because ethnic data is not always readily available, this report includes an eGFR for both -Americans and non- Americans. The National Kidney Disease Education Program (NKDEP) does not endorse the use of the MDRD equation for patients that are not between the ages of 18 and 70, are , have extremes of body size, muscle mass, or nutritional status, or are non- or non-. According to the National Kidney Foundation, irrespective of diagnosis, the stage of the disease is based on the level of kidney function: Stage Description GFR(mL/min/1.73 m(2)) 1 Kidney damage with normal or decreased GFR 90 2 Kidney damage with mild decrease in GFR 60-89 3 Moderate decrease in GFR 30-59 4 Severe decrease in GFR 15-29 5 Kidney failure <15 (or dialysis) 60 New Reference Range and Interpretation effective 11/10/2001 TnI (ng/ml) INTERPRETATION Less Than 0.06 ng/mL NOT SUPPORTIVE OF DIAGNOSIS OF [place] 0.06 - 0.50 ng/ml INDETERMINATE: SUGGEST SERIAL STUDIES IF CLINICALLY INDICATED. Greater than 0.5 ng/mL CONSISTENT WITH DIAGNOSIS OF [place] . 61 Lymphopenia % 62 Lymphopenia % 63 Anion gap measurement may be of limited value in the presence of any alkalosis, especially in a combined acid base disorder. . 64 Because ethnic data is not always readily available, this report includes an eGFR for both -Americans and non- Americans. The National Kidney Disease Education Program (NKDEP) does not endorse the use of the MDRD equation for patients that are not between the ages of 18 and 70, are , have extremes of body size, muscle mass, or nutritional status, or are non- or non-. According to the National Kidney Foundation, irrespective of diagnosis, the stage of the disease is based on the level of kidney function: Stage Description GFR(mL/min/1.73 m(2)) 1 Kidney damage with normal or decreased GFR 90 2 Kidney damage with mild decrease in GFR 60-89 3 Moderate decrease in GFR 30-59 4 Severe decrease in GFR 15-29 5 Kidney failure <15 (or dialysis) 65 New Reference Range and Interpretation effective 11/10/2001 TnI (ng/ml) INTERPRETATION Less Than 0.06 ng/mL NOT SUPPORTIVE OF DIAGNOSIS OF [place] 0.06 - 0.50 ng/ml INDETERMINATE: SUGGEST SERIAL STUDIES IF CLINICALLY INDICATED. Greater than 0.5 ng/mL CONSISTENT WITH DIAGNOSIS OF [place] . 66 Anion gap measurement may be of limited value in the presence of any alkalosis, especially in a combined acid base disorder. . 67 Note change in reference range as of 09/28/07. The change was based on recommendations from the [place] [employer]. 68 Because ethnic data is not always readily available, this report includes an eGFR for both -Americans and non- Americans. The National Kidney Disease Education Program (NKDEP) does not endorse the use of the MDRD equation for patients that are not between the ages of 18 and 70, are , have extremes of body size, muscle mass, or nutritional status, or are non- or non-. According to the National Kidney Foundation, irrespective of diagnosis, the stage of the disease is based on the level of kidney function: Stage Description GFR(mL/min/1.73 m(2)) 1 Kidney damage with normal or decreased GFR 90 2 Kidney damage with mild decrease in GFR 60-89 3 Moderate decrease in GFR 30-59 4 Severe decrease in GFR 15-29 5 Kidney failure <15 (or dialysis) 69 Lymphopenia % 70 Lymphopenia % 71 Anion gap measurement may be of limited value in the presence of any alkalosis, especially in a combined acid base disorder. . 72 Note change in reference range as of 09/28/07. The change was based on recommendations from the [place] [employer]. 73 Please note change in reference range effective 07 . 74 A metabolite of Naproxen, O-desmethylnaproxen, has been shown to interfere with the Jendrassik-Calera method for measuring total bilirubin. Samples from patients who have taken Naproxen have shown spurious elevation in total bilirubin levels. 75 Because ethnic data is not always readily available, this report includes an eGFR for both -Americans and non- Americans. The National Kidney Disease Education Program (NKDEP) does not endorse the use of the MDRD equation for patients that are not between the ages of 18 and 70, are , have extremes of body size, muscle mass, or nutritional status, or are non- or non-. According to the National Kidney Foundation, irrespective of diagnosis, the stage of the disease is based on the level of kidney function: Stage Description GFR(mL/min/1.73 m(2)) 1 Kidney damage with normal or decreased GFR 90 2 Kidney damage with mild decrease in GFR 60-89 3 Moderate decrease in GFR 30-59 4 Severe decrease in GFR 15-29 5 Kidney failure <15 (or dialysis) 76 NO EPI, NO WBC, RARE GRAM POS COCCI, 77 Staphylococcus aureus Predominating Please note: MRSA (methicillin resistant Staph. aureus) recovered. 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 Status Asthmaticus Office Visit 11/11/2011 3:20p Main Office Venkat Fabian, 789.00 Pain Abdominal M.D. Unspec Site Office Visit 12/01/2010 6:00p Main Office Venkat Fabian, 493.90 Asthma Unspec W/O M.D. Status Asthmaticus 530.81 Esophageal Reflux 782.9 Skin & Integumentary Tissue Other Symptoms v04.81 Need For Prophylactic Vaccination & Inoculation/Influenza v06.5 Tetanus Diphtheria (DT) Office Visit 07/16/2010 1:40p Main Office Venkat Currie 782.9 Skin & Integumentary Erin Fabian Tissue Other Symptoms 530.81 Esophageal Reflux 724.5 Backache Unspec 786.2 Cough Office Visit 06/09/2010 2:20p Main Office Venkat Fabian M.D. 724.2 Lumbago 692.9 Eczema NOS, Contact Dermatitis NOS 493.90 Asthma Unspec W/O Status Asthmaticus 530.81 Esophageal Reflux V77.91 Screening For Lipoid Disorders Office Visit 11/27/2008 11:00a Main Office Michelle Hutchinson 692.9 Eczema NOS , Contact Afnp-C Dermatitis NOS Office Visit 11/19/2008 2:20p Main Office Venkat Currie 709.9 Skin & Subcutaneous Erin Fabian Tissue Disorders Unspec 724.2 Lumbago Office Visit 11/12/2008 4:00p Main Office Venkat Fabian, 782.1 Rash & Other M.D. Nonspec Skin Eruption Office Visit 10/10/2008 12:30p Main Office Alex Ennis, 786.05 Shortness Of M.D. Breath 305.1 Tobacco Use Disorder 709.9 Skin & Subcutaneous Tissue Disorders Unspec Office Visit 01/26/2008 10:30a Main Office EVERETTE Pringle 724.2 Lumbago Office Visit 12/04/2007 10:30a Main Office Suki Patterson, 477.9 Rhinitis Allergic Afnp-C Cause Unspec 493.90 Asthma Unspec W/O Status Asthmaticus 530.81 Esophageal Reflux 724.2 Lumbago Office Visit 11/20/2007 10:45a Main Office Suki Patterson, 493.90 Asthma Unspec W/O Afnp-C Status Asthmaticus 477.9 Rhinitis Allergic Cause Unspec 530.81 Esophageal Reflux 724.2 Lumbago Office Visit 09/28/2007 11:00a Main Office EVERETTE Pringle 724.2 Lumbago Office Visit 12/15/2006 3:20p Main Office Venkat Fabian, 782.1 Rash & Other M.D. [facility] Office Visit 11/25/2006 11:20a Main Office Venkat Fabian, 782.1 Rash & Other M.D. [facility] Eruption Office Visit 10/25/2006 2:30p Main Office Michelle Hutchinson, 478.9 Upper Resp Tract Afnp-C Disease Other & Unspec 382.9 Otitis Media Unspec 724.5 Backache Unspec Plan of Treatment Future Appointment(s):05/12/2018 10:40 am - Venkat Fabian M.D. at [facility]04/07/2018 - Venkat Fabian M.D.J44.9 Chronic obstructive pulmonary disease, unspecifiedComments:See recent ICU admission for a COPD exacerbation with shortness of breath and wheezing. Currently isdoing well on a prednisone taper and levofloxacin. He has symptoms of severe esophagitis and we'll start omeprazole 20 mg daily and he will continue as needed antacids. We will set up an appointment with Dr. Sotelo as he has symptoms of severe reflux and may have a Zenker's diverticulum. Will also refer to Dr. Pinto for his COPD and he likely has sleep apnea syndrome. We will start bupropion 100 mg1-2 times daily to help his irritability after stopping cigarettes. 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 Continue to use his nebulizer as needed with ipratropium and albuterol. Return in one monthAllNew Medication:Dulera 200-5 mcg /Act - 2 puff twice a dayBupropion Hydrochloride ER (SR) 100 mg - 1 po bidOmeprazole 20 mg - 1 by mouth every day
[2018-04-22 06:01] LABS: ABS Basophils 0.2 10^3/ul (0-0.2); ABS Eosinophils 0.5 10^3/ul (0-0.6); ABS Lymphocytes 0.8 10^3/ul (1.0-4.8); ABS Monocytes 0.5 10^3/ul (0-0.8); ABS Neutrophils 5.5 10^3/ul (1.5-7.7); ABS Nucleated RBC 0 10^3/ul; Eosinophil % 6.9 %; Hematocrit 48 % (36-46); Hemoglobin 15.9 g/dL (14.0-18.0); Lymphocyte % 11.2 %; Mean Corpuscular HGB Conc 33 g/dL (31-36); Mean Corpuscular Hemoglobin 31 pg (27-31); Mean Corpuscular Volume 94 fL (80-94); Mean Platelet Volume 8.4 fL (7.4-10.4); Nucleated Red Blood Cells % 0; Platelet Count 175 10^3/uL (150-450); Red Blood Count 5.11 10^6 /uL (4.18-5.48); Red Cell Distribution Width 14 % (10.5-15); White Blood Count 7.6 10^3/uL (3.5-10.8)
--- NOTE | 2018-04-22 06:14 | ED ---
Shortness of Breath - HPI Summary HPI Summary: Patient is a 52-year-old male presenting to the ED with acute onset SOB last evening into this morning, congestion and mild cough. He was seen in the ED and admitted approximately 3 weeks ago for respiratory distress. He states he improved after receiving antibiotics and steroids. He also quit smoking at that time and denies any smoking history 2 weeks. He states he took one breathing treatment at home, but was concerned over a worsening condition, so came to the ED. He denies history of cardiac disease or diabetes. History of COPD and take Ellipta and Dulera at home. Denies fevers, sweats, chills, CP, abdominal pain, headache. - History of Current Complaint Chief Complaint: EDShortnessOfBreath Time Seen by Provider: 04/22/18 05:32 Hx Obtained From: Patient Onset/Duration: Sudden Onset Timing: Constant Current Severity: Mild Dyspnea At: Rest Alleviating Factors: Bronchodilators Associated Signs & Symptoms: Cough (Productive) - Risk Factors Pulmonary Embolism: Negative, Smoking Cardiac: Negative Pseudomonas: Negative Tuberculosis: Negative - Allergy/Home Medications Allergies/Adverse Reactions: Allergies Allergy/AdvReac Type Severity Reaction Status Date / Time bee venom protein (honey bee) Allergy Anaphylatic Verified 04/03/18 03:28 Shock Milk Containing Products Allergy Anaphylatic Verified 04/03/18 03:28 Shock Penicillins Allergy Unknown Verified 04/03/18 03:28 Reaction Details Home Medications: Home Medications Doxycycline Monohydrate 100 mg PO BID 04/22/18 [History Confirmed 04/22/18] Ipratropium/Albuterol Sulfate [Iprat-Albut 0.5-3(2.5) mg/3 ml] 1 dose INH QID PRN 04/22/18 [History Confirmed 04/22/18] Mometasone/Formoter 200/5 MDI* [Dulera 200/5 MDI*] 2 puff INH BID 04/22/18 [ History Confirmed 04/22/18] Omeprazole 20 mg PO DAILY 04/22/18 [History Confirmed 04/22/18] Umeclidin/Vilant 62.5 MDI(NF) [ANORO 62.5/25 Ellipta DEVICE (NF)] 1 puff INH DAILY 04/22/18 [History Confirmed 04/22/18] buPROPion HCl [Bupropion HCl Sr] 100 mg PO BID 04/22/18 [History Confirmed 04/22] predniSONE TAB* [Deltasone TAB*] 50 mg PO DAILY 04/22/18 [History Confirmed ] PMH/Surg Hx/FS Hx/Imm Hx Previously Healthy: Yes Endocrine/Hematology History: Denies: Hx Anticoagulant Therapy, Hx Diabetes, Hx Thyroid Disease Cardiovascular History: Denies: Hx Hypertension, Hx Pacemaker/ICD Respiratory History: Reports: Hx Asthma, Hx Chronic Obstructive Pulmonary Disease (COPD) GI History: Reports: Other GI Disorders History: Denies: Hx Renal Disease Sensory History: Reports: Hx Contacts or Glasses Denies: Hx Legally Blind, Hx Deafness, Hx Hearing Aid Opthamlomology History: Reports: Hx Contacts or Glasses Denies: Hx Legally Blind Neurological History: Denies: Hx Dementia, Hx Seizures Psychiatric History: Denies: Hx Schizophrenia, Hx Substance Abuse - Immunization History Date of Tetanus Vaccine: UTD Hx Pertussis Vaccination: No Immunizations Up to Date: Yes Infectious Disease History: No Infectious Disease History: Denies: Hx Hepatitis, Hx Human Immunodeficiency Virus (HIV), Traveled Outside the [place] in Last 30 Days - Family History Known Family History: Positive: Cardiac Disease - Social History Occupation: Employed Full-time Lives: With Family Alcohol Use: Rare Hx Substance Use: No Substance Use Type: Reports: None Hx Tobacco Use: Yes Smoking Status (MU): Former Smoker Type: Cigarettes Amount Used/How Often: 1 cigarette per day Review of Systems Constitutional: Negative Negative: Fever, Chills, Fatigue, Skin Diaphoresis Negative: Palpitations, Chest Pain Positive: Shortness Of Breath, Cough Negative: Abdominal Pain, Vomiting, Diarrhea, Nausea Genitourinary: Negative Positive: no symptoms reported, see HPI Negative: Arthralgia, Myalgia Neurological: Negative All Other Systems Reviewed And Are Negative: Yes Physical Exam Triage Information Reviewed: Yes Vital Signs On Initial Exam: Initial Vitals Temp Pulse Resp BP Pulse Ox 98.2 F 107 24 110/80 96 04/22/18 05:20 04/22/18 05:20 04/22/18 05:20 04/22/18 05:20 04/22/18 05:20 Vital Signs Reviewed: Yes Appearance: Positive: Well-Appearing, Well-Nourished Skin: Positive: Warm, Skin Color Reflects Adequate Perfusion Head/Face: Positive: Normal Head/Face Inspection Eyes: Positive: Normal Neck: Positive: No Lymphadenopathy Respiratory/Lung Sounds: Positive: Wheezes. Negative: Rales, Rhonchi, Unable to speak in full sentences, Fatigue Cardiovascular: Positive: RRR, Pulses are Symmetrical in both Upper and Lower Extremities. Negative: Leg Edema Left, Leg Edema Right Musculoskeletal: Positive: Normal Neurological: Positive: Alert, Oriented to Person Place, Time, Speech Normal Psychiatric: Positive: Normal, Affect/Mood Appropriate Diagnostics - Vital Signs Vital Signs Temp Pulse Resp BP Pulse Ox 04/22/18 05:54 86 20 96 04/22/18 05:26 104 110/80 96 04/22/18 05:20 98.2 F 107 24 110/80 96 - Laboratory Lab Results: Lab Results 04/22/18 Range/Units 05:45 WBC 7.6 (3.5-10.8) 10^3/uL RBC 5.11 (4.18-5.48) 10^6 /uL Hgb 15.9 (14.0-18.0) g/dL Hct 48 H (36-46) % MCV 94 (80-94) fL MCH 31 (27-31) pg MCHC 33 (31-36) g/dL RDW 14 (10.5-15) % Plt Count 175 (150-450) 10^3/uL MPV 8.4 (7.4-10.4) fL Neut % (Auto) 73.3 % Lymph % (Auto) 11.2 % [place] % (Auto) 6.4 % Eos % (Auto) 6.9 % Baso % (Auto) 2.2 % Absolute Neuts (auto) 5.5 (1.5-7.7) 10^3/ul Absolute Lymphs (auto) 0.8 L (1.0-4.8) 10^3/ul Absolute Monos (auto) 0.5 (0-0.8) 10^3/ul Absolute Eos (auto) 0.5 (0-0.6) 10^3/ul Absolute Basos (auto) 0.2 (0-0.2) 10^3/ul Absolute Nucleated RBC 0 10^3/ul Nucleated RBC % 0 Result Diagrams: 04/22/18 05:45 04/22/18 05:45 Lab Statement: Any lab studies that have been ordered have been reviewed, and results considered in the medical decision making process. Re-Evaluation - Re-Evaluation First Eval Change: Improved - improved after 1st duo-neb treatment at 6:15am Course/Dx - Course Course Of Treatment: Vital signs stable on arrival. Current O2 sat on arrival is 95% on room air. Patient appears well, nondiaphoretic. On physical examination, lungs are wheezing bilaterally. He also appears to be slight short of breath, but does not appear to have a serious work of breathing. He was given a DuoNeb on arrival. Labs were obtained. Chest x-ray obtained. He was given mag sulfate 2 mg as well as Decadron 10 mg, both IV. He states he is feeling improved. He is given another duo-neb prior to discharge. He will be given a 5 day course of steroids and close follow up with his PCP. - Diagnoses Provider Diagnoses: COPD exacerbation Discharge - Sign-Out/Discharge Documenting (check all that apply): Patient Departure Patient Received Moderate/Deep Sedation with Procedure: No - Discharge Plan Condition: Stable Disposition: HOME Prescriptions: predniSONE TAB* [Deltasone TAB*] 50 mg PO DAILY #5 tab MDD 1 Patient Education Materials: Dyspnea (ED) Referrals: Venkat Fabian MD [Primary Care Provider] - Additional Instructions: Prednisone once daily x 5 days Continue to use your nebulizer treatments at home for relief and other medications as prescribed - Billing Disposition and Condition Condition: STABLE Disposition: Home
[2018-04-22 06:20] LABS: Albumin 4.1 g/dL (3.2-5.2); Albumin/Globulin Ratio 1.7 (1-3); BUN/Creatinine Ratio 18.7 (8-20); Calcium 9.3 mg/dL (8.6-10.3); EGFR African American 87.8 (>60); EGFR Non-African American 72.6 (>60); Globulin 2.4 g/dL (2-4); Potassium 4.2 mmol/L (3.5-5.0); Total Bilirubin 0.4 mg/dL (0.2-1.0); Total Protein 6.5 g/dL (6.4-8.9)
[2018-04-22 06:23] LABS: Troponin I 0.01 ng/mL (<0.04)
[2018-04-22 07:29] VITALS: BP 116/79
== END 2018-04-22 07:49 | disposition home or self-care (01) ==
LOC: ED 05:14
DX: J44.1 Chronic obstructive pulmonary disease with (acute) exacerbation (principal); Z87.891 Personal history of nicotine dependence; Z88.0 Allergy status to penicillin
CPT/HCPCS: 36415; 71046; 80053; 84484; 85025; 93005; 96365; 96372; 96375; 99284; A9270-GY; J1100; J3475

== ENCOUNTER 2019-02-13 15:34 | Emergency (ER) | payer OTHER ==
[2019-02-13] MEDS ORDERED: Albuterol/Ipratropium NEB.SOL* Albuterol 2.5 MG/Ipratropium 0.5 MG 3 ML INH ONE (16:03)
[2019-02-13] MEDS ORDERED: Ibuprofen TAB* 600 MG PO ONE (16:04)
--- NOTE | 2019-02-13 16:10 | ED ---
Influenza-Like Illness - HPI Summary HPI Summary: The patient is a 53 y/o M presenting to [facility] accompanied by family with a chief complaint of flu-like symptoms worse over the last two days. He reports that he has been experiencing diarrhea for the last few days, but since yesterday, he has had difficulty breathing with a productive cough, myalgia, arthralgia, chills, diaphoresis, nausea, and vomiting. He has not measured a fever. Symptoms currently rated 3/10 in severity, but have been up to 7/10 at worst. He notes he has been using his nebulizer more frequently than usual because of his symptoms, but to no relief. He also had 10mg Prednisone this morning, which was part of a tapered course; however, he has not been taking this course daily as he does not have to. He has been exposed to people with PNA recently and was possibly exposed to the flu. He did not get a flu vaccine this season. PMHx: asthma, COPD. Former smoker, rare EtOH, no substance use. Medications reviewed. Allergies noted. - History of Current Complaint Chief Complaint: EDFluSymptoms Time Seen by Provider: 02/13/19 15:53 Hx Obtained From: Patient Onset/Duration: Lasting Days - 3-4, Still Present, Worse Since - yesterday Severity: Moderate Associated Signs & Symptoms: Myalgia, Cough, Vomiting, Diarrhea - Allergy/Home Medications Allergies/Adverse Reactions: Allergies Allergy/AdvReac Type Severity Reaction Status Date / Time bee venom protein (honey bee) Allergy Anaphylatic Verified 02/13/19 15:39 Shock Milk Containing Products Allergy Hives and Verified 02/13/19 15:39 closes throat Penicillins Allergy Unknown Verified 02/13/19 15:39 Reaction Details PMH/Surg Hx/FS Hx/Imm Hx Endocrine/Hematology History: Denies: Hx Anticoagulant Therapy, Hx Diabetes, Hx Thyroid Disease Cardiovascular History: Denies: Hx Hypertension, Hx Pacemaker/ICD Respiratory History: Reports: Hx Asthma, Hx Chronic Obstructive Pulmonary Disease (COPD) GI History: Reports: Other GI Disorders History: Denies: Hx Renal Disease Sensory History: Reports: Hx Contacts or Glasses Denies: Hx Legally Blind, Hx Deafness, Hx Hearing Aid Opthamlomology History: Reports: Hx Contacts or Glasses Denies: Hx Legally Blind Neurological History: Denies: Hx Dementia, Hx Seizures Psychiatric History: Denies: Hx Schizophrenia, Hx Substance Abuse - Surgical History Surgical History: None Surgery Procedure, Year, and Place: none - Immunization History Date of Tetanus Vaccine: UTD Infectious Disease History: No Infectious Disease History: Denies: Hx Hepatitis, Hx Human Immunodeficiency Virus (HIV), Traveled Outside the [place] in Last 30 Days - Family History Known Family History: Positive: Cardiac Disease - Social History Alcohol Use: Rare Hx Substance Use: No Substance Use Type: Reports: None Hx Tobacco Use: Yes Smoking Status (MU): Former Smoker Type: Cigarettes Amount Used/How Often: 1 cigarette per day Review of Systems Positive: Chills, Skin Diaphoresis Positive: Shortness Of Breath, Cough - productive Positive: Vomiting, Diarrhea, Nausea Positive: Arthralgia, Myalgia All Other Systems Reviewed And Are Negative: Yes Physical Exam - Summary Physical Exam Summary: Constitutional: Well-developed, Well-nourished, Alert. (-) Distressed Skin: Warm, Dry HENT: Normocephalic; Atraumatic Eyes: Conjunctiva normal Neck: Musculoskeletal ROM normal neck. (-) JVD, (-) Stridor, (-) Tracheal deviation Cardio: Rhythm regular, rate normal, Heart sounds normal; Intact distal pulses; Radial pulses are 2+ and symmetric. (-) Murmur Pulmonary/Chest wall: Effort normal. (-) Respiratory distress, (+) Bilateral inspiratory wheezes, (-) Rales; Speaking in full sentences, Good air entry Abd: Soft, (-) tenderness, (-) Distension, (-) Guarding, (-) Rebound Musculoskeletal: (-) Edema Lymph: (-) Cervical adenopathy Neuro: Alert, Oriented x3 Psych: Mood and affect Normal Triage Information Reviewed: Yes Vital Signs On Initial Exam: Initial Vitals Temp Pulse Resp BP Pulse Ox 98.5 F 88 18 151/85 96 02/13/19 15:36 02/13/19 15:36 02/13/19 15:36 02/13/19 15:36 02/13/19 15:36 Vital Signs Reviewed: Yes Procedures - Sedation Patient Received Moderate/Deep Sedation with Procedure: No Diagnostics - Vital Signs Vital Signs Temp Pulse Resp BP Pulse Ox 02/13/19 15:36 98.5 F 88 18 151/85 96 - Laboratory Lab Statement: Any lab studies that have been ordered have been reviewed, and results considered in the medical decision making process. - Radiology CXR Radiology Interpretation Completed By: Radiologist Summary of Radiographic Findings: Impression: No active cardiopulmonary disease. ED physician has reviewed this report. Re-Evaluation - Re-Evaluation First Eval Re-Evaluation Time: 17:05 Comment: He feels better after treatment. Although the flu results came back negative, his symptoms are consistent with the flu. I offered him Tamiflu, and the patient would like to start the medication. Flu Symptom Course/Dx - Course Course Of Treatment: Patient is here with cough, shortness of breath, and body aches. Patient has a history of COPD and denies in the next retort wheezing on exam. Patient was given a DuoNeb with improvement in his symptoms. Patient already took 10 mg of prednisone and was given 50 mg more here. Patient had a negative influenza swab. However, patient's symptoms are very consistent with influenza so he was offered Tamiflu which he accepted. Patient is discharged with a prescription for Tamiflu and 4 more days of prednisone. - Diagnoses Provider Diagnoses: Cough, COPD exacerbation, Body aches Discharge ED - Sign-Out/Discharge Documenting (check all that apply): Patient Departure - Patient will be discharged home. - Discharge Plan Condition: Stable Disposition: HOME Prescriptions: Oseltamivir SUSP 75 MG dose* [Tamiflu SUSP 75 MG dose*] 75 mg PO BID 5 Days #10 oral.syrin predniSONE 20 mg TAB [Deltasone 20 MG TAB*] 40 mg PO DAILY 4 Days #8 tab Patient Education Materials: COPD (Chronic Obstructive Pulmonary Disease) (ED) , Acute Cough (ED) Referrals: Venkat Fabian MD [Primary Care Provider] - 3 Days Additional Instructions: Come back for any worsening or trouble breathing, fevers, not acting normal, or any other concerning symptoms. Your Tamiflu will make you vomit. Stay hydrated. Follow up with your primary care provider in 1-3 days. - Billing Disposition and Condition Condition: STABLE Disposition: Home - Attestation Statements Document Initiated by Scribe: Yes Documenting Scribe: Kyra Senior Provider For Whom Fabienne is Documenting (Include Credential): Dr. Nicolas Rodriges MD Scribe Attestation: Kyra Mendoza, scribed for Dr. Nicolas Rodriges MD on 02/13/19 at 2102. Scribe Documentation Reviewed: Yes Provider Attestation: The documentation as recorded by the scribe, Kyra Senior accurately reflects the service I personally performed and the decisions made by me, Dr. Nicolas Rodriges MD Status of Scribe Document: Viewed
[2019-02-13 16:29] LABS: Influenza A Molecular NEGATIVE (Negative); Influenza B Molecular NEGATIVE (Negative)
[2019-02-13 17:18] VITALS: BP 122/74
== END 2019-02-13 17:13 | disposition home or self-care (01) ==
LOC: ED 15:34
DX: J44.1 Chronic obstructive pulmonary disease with (acute) exacerbation (principal); R05 Cough; R11.10 Vomiting, unspecified; R19.7 Diarrhea, unspecified; R06.02 Shortness of breath; Z87.891 Personal history of nicotine dependence; R52 Pain, unspecified
CPT/HCPCS: 71046; 99282; A9270-GY; J7512

== ENCOUNTER 2019-10-22 04:12 | Inpatient (IN) ==
[2019-10-22] MEDS ORDERED: Albuterol 0.5% CONC NEB.SOL 5 mg/ml 20 ml BOT ONE (04:16)
[2019-10-22] MEDS ORDERED: Albuterol 0.5% CONC NEB.SOL 5 mg/ml 20 ml BOT INH ONE (04:22)
[2019-10-22 04:43] LABS: ABS Basophils 0.1 10^3/ul (0-0.2); ABS Eosinophils 0.5 10^3/ul (0-0.6); ABS Lymphocytes 0.9 10^3/ul (1.0-4.8); ABS Monocytes 0.5 10^3/ul (0-0.8); Eosinophil % 7.6 %; Hematocrit 46 % (42-52); Hemoglobin 15.7 g/dL (14.0-18.0); Lymphocyte % 13.2 %; Mean Corpuscular HGB Conc 34 g/dL (31-36); Mean Corpuscular Hemoglobin 31 pg (27-31); Mean Corpuscular Volume 92 fL (80-94); Mean Platelet Volume 8.4 fL (7.4-10.4); Platelet Count 241 10^3/uL (150-450); Red Blood Count 5.02 10^6 /uL (4.18-5.48); Red Cell Distribution Width 14 % (10-15)
[2019-10-22 04:53] LABS: INR 0.96 (0.82-1.09)
[2019-10-22 05:00] LABS: ALT 28 U/L (7-52); Albumin 4.3 g/dL (3.2-5.2); Albumin/Globulin Ratio 1.7 (1-3); Alkaline Phosphatase 54 U/L (34-104); BUN/Creatinine Ratio 15.6 (8-20); Blood Urea Nitrogen 14 mg/dL (6-24); C Reactive Protein 6.33 mg/L (<8.01); CO2 Carbon Dioxide 25 mmol/L (22-32); Chloride 105 mmol/L (101-111); EGFR African American 106.8 (>60); EGFR Non-African American 88.3 (>60); Globulin 2.5 g/dL (2-4); Glucose 134 mg/dL (70-100); Sodium 137 mmol/L (135-145); Total Protein 6.8 g/dL (6.4-8.9)
[2019-10-22 05:02] LABS: Anion Gap 7 mmol/L (2-11)
[2019-10-22] MEDS ORDERED: cefTRIAXone 2 GM ADDV.VIAL 2 GM in NS 0.9% 100 ml BAG 100 ML IVPB ONE (05:58)
[2019-10-22] MEDS ORDERED: Azithromycin 500 mg/250 ml NS 500 MG/250 ML BAG IVPB ONE (06:00)
[2019-10-22] MEDS ORDERED: Al Hydrox/Mg Hydrox/Simet LIQ 30 ML UDC PO PRN (06:21)
[2019-10-22] MEDS ORDERED: Albuterol 2.5mg/3 ml (0.083%) NEB.SOLN INH PRN (06:21)
[2019-10-22] MEDS ORDERED: Ondansetron 4 mg VIAL 2 MG/ML 2 ml VIAL IV PRN (06:21)
[2019-10-22 08:19] LABS: Influenza A Molecular Negative (Negative); Influenza B Molecular Negative (Negative)
[2019-10-22] MEDS: Mometasone/Formoter 100/5 MDI INH SCH ×3 (08:57→19:24)
[2019-10-22] MEDS: NS 0.9% 1000 ml BAG 1,000 ML IV SCH ×2 (09:59→21:32)
[2019-10-22 11:53] LABS: Magnesium 2.2 mg/dL (1.9-2.7)
[2019-10-22] MEDS: Heparin 5000 UNITS/ML 1 mL VIAL SUBCUT SCH ×2 (13:24→23:21)
[2019-10-22] MEDS: Albuterol/Ipratropium NEB.SOL (2.5/0.5 MG) 3 ML NEB.SOLN INH PRN (19:23)
[2019-10-23] MEDS: Heparin 5000 UNITS/ML 1 mL VIAL SUBCUT SCH ×2 (05:08→14:24)
[2019-10-23 05:16] LABS: ABS Basophils 0.1 10^3/ul (0-0.2); ABS Lymphocytes 0.7 10^3/ul (1.0-4.8); ABS Monocytes 0.7 10^3/ul (0-0.8); ABS Neutrophils 13.6 10^3/ul (1.5-7.7); Eosinophil % 0.2 %; Hematocrit 44 % (42-52); Hemoglobin 14.7 g/dL (14.0-18.0); Lymphocyte % 4.7 %; Mean Corpuscular HGB Conc 33 g/dL (31-36); Mean Corpuscular Hemoglobin 31 pg (27-31); Mean Corpuscular Volume 92 fL (80-94); Mean Platelet Volume 8.5 fL (7.4-10.4); Platelet Count 257 10^3/uL (150-450); Red Blood Count 4.76 10^6 /uL (4.18-5.48); Red Cell Distribution Width 14 % (10-15); White Blood Count 15.1 10^3/uL (3.5-10.8)
[2019-10-23] MEDS: Albuterol/Ipratropium NEB.SOL (2.5/0.5 MG) 3 ML NEB.SOLN INH PRN (05:19)
[2019-10-23] MEDS: Mometasone/Formoter 100/5 MDI INH SCH ×2 (05:20→07:06)
[2019-10-23 05:33] LABS: BUN/Creatinine Ratio 18.6 (8-20); Calcium 9.2 mg/dL (8.6-10.3); EGFR African American 112.6 (>60); Potassium 4.4 mmol/L (3.5-5.0)
[2019-10-23] MEDS: NS 0.9% 1000 ml BAG 1,000 ML IV SCH (07:39)
[2019-10-23] MEDS ORDERED: cefTRIAXone 1 gm/50 mL NS BAG 1 GM/50 ML BAG IVPB SCH (08:00)
[2019-10-23] MEDS ORDERED: Influenza VAC *QUAD* 2020-21* 0.5 ML SYRINGE IM ONE (09:00)
[2019-10-23] MEDS ORDERED: Pneumococcal Vac 23-Polyvalent IM ONE (09:00)
[2019-10-23 12:14] VITALS: BP 147/85
== END 2019-10-23 15:40 | disposition home or self-care (01) | DRG 140 ==
LOC: ED 04:12 → MED 06:21
PROVIDERS: ADMIT Pediatrics; ATTEND Internal Medicine

== ENCOUNTER 2020-11-06 17:38 | Inpatient (IN) ==
[2020-11-06 18:10] LABS: ABS Eosinophils 0.1 10^3/ul (0-0.6); ABS Lymphocytes 1.8 10^3/ul (1.0-4.8); ABS Monocytes 1.1 10^3/ul (0-0.8); ABS Neutrophils 13.1 10^3/ul (1.5-7.7); Eosinophil % 0.6 %; Hematocrit 48 % (42-52); Hemoglobin 16.3 g/dL (14.0-18.0); Lymphocyte % 11.5 %; Mean Corpuscular HGB Conc 34 g/dL (31-36); Mean Corpuscular Hemoglobin 31 pg (27-31); Mean Corpuscular Volume 93 fL (80-94); Mean Platelet Volume 8.6 fL (7.4-10.4); Nucleated Red Blood Cells % 0.1; Platelet Count 329 10^3/uL (150-450); Red Blood Count 5.18 10^6 /uL (4.18-5.48); Red Cell Distribution Width 14 % (10-15); White Blood Count 16.1 10^3/uL (3.5-10.8)
[2020-11-06 18:28] LABS: Albumin 4.6 g/dL (3.2-5.2); Albumin/Globulin Ratio 1.4 (1-3); Calcium 9.7 mg/dL (8.6-10.3); EGFR African American 85.3 (>60); EGFR Non-African American 70.5 (>60); Globulin 3.3 g/dL (2-4); Potassium 3.7 mmol/L (3.5-5.0); Total Bilirubin 0.4 mg/dL (0.2-1.0); Total Protein 7.9 g/dL (6.4-8.9)
[2020-11-06] MEDS ORDERED: DOXYcycline 100 MG in NS 0.9% 250 ml 250 ML IVPB ONE (18:36)
[2020-11-06 19:54] LABS: PCO2 Arterial 44 mmHg (35-45); PO2 Arterial 103 mmHg (80-100)
[2020-11-06 20:33] LABS: Rapid COVID-19 Molecular Undetected (Undetected)
[2020-11-06 21:22] LABS: C Reactive Protein 7.93 mg/L (<8.01)
[2020-11-06] MEDS ORDERED: Enoxaparin 40 MG/0.4 ML SYR SUBCUT SCH (22:00)
[2020-11-06] MEDS ORDERED: Albuterol/Ipratropium NEB.SOL (2.5/0.5 MG) 3 ML NEB.SOLN INH PRN ×2 (22:01→22:07)
[2020-11-06] MEDS ORDERED: Azithromycin 500 mg/250 ml NS 500 MG/250 ML BAG IVPB ONE (23:10)
[2020-11-07] MEDS: Enoxaparin 40 MG/0.4 ML SYR SUBCUT SCH (04:07)
[2020-11-07 07:04] LABS: ABS Lymphocytes 0.5 10^3/ul (1.0-4.8); ABS Monocytes 0.3 10^3/ul (0-0.8); ABS Neutrophils 10.7 10^3/ul (1.5-7.7); Hematocrit 46 % (42-52); Hemoglobin 15.6 g/dL (14.0-18.0); Mean Corpuscular HGB Conc 34 g/dL (31-36); Mean Corpuscular Hemoglobin 31 pg (27-31); Mean Corpuscular Volume 93 fL (80-94); Platelet Count 258 10^3/uL (150-450); Red Blood Count 4.99 10^6 /uL (4.18-5.48); Red Cell Distribution Width 14 % (10-15); White Blood Count 11.6 10^3/uL (3.5-10.8)
[2020-11-07 07:10] LABS: C Reactive Protein 7.04 mg/L (<8.01); Calcium 9.3 mg/dL (8.6-10.3); EGFR African American 87.1 (>60); Magnesium 2.1 mg/dL (1.9-2.7); Potassium 4.3 mmol/L (3.5-5.0)
[2020-11-07] MEDS ORDERED: Omeprazole 20 mg CAP (NF) PO SCH (09:00)
[2020-11-07] MEDS ORDERED: Ipratropium HFA INHALER(NF) (ALTERNATIVE = NEBS) INH PRN (15:32)
[2020-11-07] MEDS: SPIRIVA Respimat (tiotropium) 2.5 mcg/inh Inhaler INH SCH (16:04)
[2020-11-07] MEDS ORDERED: Calcium Carb (TUMS) 500 mg CHEW TAB PO PRN (16:21)
[2020-11-07] MEDS: Albuterol HFA INHALER 8 gm MDI INH PRN (20:13)
[2020-11-07] MEDS: Mometasone/Formoter 200/5 MDI INH SCH (20:13)
[2020-11-08 07:48] LABS: ABS Lymphocytes 1.3 10^3/ul (1.0-4.8); ABS Neutrophils 9.7 10^3/ul (1.5-7.7); Eosinophil % 0.2 %; Hematocrit 48 % (42-52); Hemoglobin 16.4 g/dL (14.0-18.0); Lymphocyte % 10.7 %; Mean Corpuscular HGB Conc 34 g/dL (31-36); Mean Corpuscular Hemoglobin 31 pg (27-31); Mean Corpuscular Volume 92 fL (80-94); Mean Platelet Volume 8.3 fL (7.4-10.4); Platelet Count 277 10^3/uL (150-450); Red Blood Count 5.26 10^6 /uL (4.18-5.48); Red Cell Distribution Width 14 % (10-15); White Blood Count 12.1 10^3/uL (3.5-10.8)
[2020-11-08] MEDS: SPIRIVA Respimat (tiotropium) 2.5 mcg/inh Inhaler INH SCH (07:54)
[2020-11-08] MEDS: Mometasone/Formoter 200/5 MDI INH SCH ×2 (07:54→19:54)
[2020-11-08] MEDS: Albuterol HFA INHALER 8 gm MDI INH PRN ×3 (07:55→22:11)
[2020-11-08 08:09] LABS: Calcium 9.5 mg/dL (8.6-10.3); EGFR African American 107.8 (>60); EGFR Non-African American 89.1 (>60); Magnesium 2.4 mg/dL (1.9-2.7)
[2020-11-08] MEDS: Enoxaparin 40 MG/0.4 ML SYR SUBCUT SCH (08:30)
[2020-11-08] MEDS: Albuterol/Ipratropium NEB.SOL (2.5/0.5 MG) 3 ML NEB.SOLN INH SCH ×2 (11:36→19:55)
[2020-11-09] MEDS ORDERED: Acetylcysteine INHALATION SOL 200 MG/ML NEB.SOLN 10 ML INH PRN (00:15)
[2020-11-09] MEDS: Albuterol/Ipratropium NEB.SOL (2.5/0.5 MG) 3 ML NEB.SOLN INH SCH ×4 (01:08→19:19)
[2020-11-09] MEDS: Mometasone/Formoter 200/5 MDI INH SCH ×3 (06:52→19:20)
[2020-11-09] MEDS: SPIRIVA Respimat (tiotropium) 2.5 mcg/inh Inhaler INH SCH ×2 (06:52→07:07)
[2020-11-09] MEDS: Enoxaparin 40 MG/0.4 ML SYR SUBCUT SCH (08:15)
[2020-11-09] MEDS ORDERED: Perflutren Lipid Microsphere 3 ML VIAL ONE (12:22)
[2020-11-09 16:12] LABS: TSH Ultra Thyroid Stim Horm 2.03 mcIU/mL (0.34-5.60)
[2020-11-10] MEDS: Albuterol/Ipratropium NEB.SOL (2.5/0.5 MG) 3 ML NEB.SOLN INH SCH ×3 (01:40→13:58)
[2020-11-10 07:05] LABS: Hematocrit 45 % (42-52); Hemoglobin 15.4 g/dL (14.0-18.0); Mean Corpuscular HGB Conc 35 g/dL (31-36); Mean Corpuscular Hemoglobin 32 pg (27-31); Mean Corpuscular Volume 92 fL (80-94); Mean Platelet Volume 8.2 fL (7.4-10.4); Platelet Count 255 10^3/uL (150-450); Red Blood Count 4.86 10^6 /uL (4.18-5.48); Red Cell Distribution Width 13 % (10-15); White Blood Count 9.6 10^3/uL (3.5-10.8)
[2020-11-10 07:11] LABS: Calcium 8.7 mg/dL (8.6-10.3); EGFR African American 85.3 (>60); EGFR Non-African American 70.5 (>60); Magnesium 2.3 mg/dL (1.9-2.7); Potassium 4.1 mmol/L (3.5-5.0)
[2020-11-10] MEDS: Mometasone/Formoter 200/5 MDI INH SCH (07:34)
[2020-11-10] MEDS: SPIRIVA Respimat (tiotropium) 2.5 mcg/inh Inhaler INH SCH (07:35)
[2020-11-10] MEDS: Enoxaparin 40 MG/0.4 ML SYR SUBCUT SCH (09:57)
[2020-11-10 14:45] VITALS: BP 114/56
== END 2020-11-10 16:45 | disposition home or self-care (01) | DRG 140 ==
LOC: MED 17:38 → ED 17:38 → SUATTDRO 21:58 → MED 11-07 01:50 → SUATTDRO 11-07 12:39
PROVIDERS: ADMIT Student in an Organized Health Care Education/Training Program; ATTEND Student in an Organized Health Care Education/Training Program

== ENCOUNTER 2021-06-13 10:10 | Inpatient (IN) ==
[2021-06-13] MEDS ORDERED: Albuterol HFA INHALER 8 gm MDI INH ONE ×2 (10:12→10:14)
[2021-06-13 11:03] LABS: ABS Lymphocytes 0.7 10^3/ul (1.0-4.8); ABS Monocytes 0.5 10^3/ul (0-0.8); ABS Neutrophils 6.8 10^3/ul (1.5-7.7); Hematocrit 48 % (42-52); Hemoglobin 16.6 g/dL (14.0-18.0); Lymphocyte % 8.3 %; Mean Corpuscular HGB Conc 34 g/dL (31-36); Mean Corpuscular Hemoglobin 31 pg (27-31); Mean Corpuscular Volume 90 fL (80-94); Mean Platelet Volume 8.5 fL (7.4-10.4); Nucleated Red Blood Cells % 0.1; Platelet Count 196 10^3/uL (150-450); Red Cell Distribution Width 14 % (10-15); White Blood Count 7.9 10^3/uL (3.5-10.8)
[2021-06-13 11:42] LABS: ALT 36 U/L (7-52); Albumin/Globulin Ratio 1.5 (1-3); Alkaline Phosphatase 40 U/L (35-149); Blood Urea Nitrogen 16 mg/dL (6-24); CO2 Carbon Dioxide 20 mmol/L (22-32); Calcium 8.4 mg/dL (8.6-10.3); Chloride 108 mmol/L (101-111); Globulin 2.6 g/dL (2-4); Glucose 125 mg/dL (70-100); Sodium 140 mmol/L (135-145); Total Protein 6.6 g/dL (6.4-8.9); eGFR CKD-EPI 102.3 (>60)
[2021-06-13 11:49] LABS: Anion Gap 12 mmol/L (2-11)
[2021-06-13] MEDS ORDERED: Ondansetron 4 mg VIAL 2 MG/ML 2 ml VIAL IV PRN (13:51)
[2021-06-13] MEDS ORDERED: Remdesivir 100 mg Vial 200 MG in NS 0.9% 250 ml 210 ML IV ONE (14:15)
[2021-06-13] MEDS: DOXYcycline 100 MG in NS 0.9% 250 ml 250 ML IVPB SCH ×2 (15:56→21:28)
[2021-06-13] MEDS: Enoxaparin 40 MG/0.4 ML SYR SUBCUT SCH (15:56)
[2021-06-13] MEDS: Tiotropium Brom/Olodaterol MDI INH SCH (20:19)
[2021-06-13] MEDS ORDERED: Albuterol/Ipratropium NEB.SOL (2.5/0.5 MG) 3 ML NEB.SOLN ONE (21:36)
[2021-06-14] MEDS: Albuterol/Ipratropium NEB.SOL (2.5/0.5 MG) 3 ML NEB.SOLN INH SCH ×5 (00:07→19:46)
[2021-06-14] MEDS: Albuterol HFA INHALER 8 gm MDI INH PRN ×3 (01:10→13:29)
[2021-06-14 05:44] LABS: ABS Lymphocytes 0.6 10^3/ul (1.0-4.8); ABS Monocytes 0.8 10^3/ul (0-0.8); ABS Neutrophils 7.6 10^3/ul (1.5-7.7); Hematocrit 48 % (42-52); Hemoglobin 15.9 g/dL (14.0-18.0); Mean Corpuscular HGB Conc 33 g/dL (31-36); Mean Corpuscular Hemoglobin 30 pg (27-31); Mean Corpuscular Volume 91 fL (80-94); Mean Platelet Volume 9.1 fL (7.4-10.4); Platelet Count 213 10^3/uL (150-450); Red Blood Count 5.26 10^6 /uL (4.18-5.48); Red Cell Distribution Width 14 % (10-15); White Blood Count 9.1 10^3/uL (3.5-10.8)
[2021-06-14 05:52] LABS: INR 1.02 (0.86-1.15)
[2021-06-14 07:13] LABS: Albumin 4.3 g/dL (3.2-5.2); Calcium 9.2 mg/dL (8.6-10.3); Magnesium 2.2 mg/dL (1.9-2.7); Potassium 4.5 mmol/L (3.5-5.0); Total Bilirubin 0.6 mg/dL (0.2-1.0)
[2021-06-14 07:19] LABS: Albumin/Globulin Ratio 1.7 (1-3); Globulin 2.6 g/dL (2-4); Total Protein 6.9 g/dL (6.4-8.9); eGFR CKD-EPI 103.4 (>60)
[2021-06-14] MEDS: Tiotropium Brom/Olodaterol MDI INH SCH (07:28)
[2021-06-14] MEDS: DOXYcycline 100 MG in NS 0.9% 250 ml 250 ML IVPB SCH ×2 (10:00→21:54)
[2021-06-14] MEDS ORDERED: Albuterol/Ipratropium NEB.SOL (2.5/0.5 MG) 3 ML NEB.SOLN INH ONE (10:53)
[2021-06-14] MEDS: Enoxaparin 40 MG/0.4 ML SYR SUBCUT SCH (13:25)
[2021-06-14] MEDS: methylPREDNISolone SOD SUCC 125 mg 2 ML VIAL IV SCH ×2 (13:25→21:56)
[2021-06-15] MEDS: Remdesivir 100 mg Vial 100 MG in NS 0.9% 250 ml 230 ML IV SCH ×2 (00:13→21:58)
[2021-06-15] MEDS: Albuterol HFA INHALER 8 gm MDI INH PRN ×3 (01:26→23:50)
[2021-06-15] MEDS: methylPREDNISolone SOD SUCC 125 mg 2 ML VIAL IV SCH ×3 (05:35→20:40)
[2021-06-15 06:47] LABS: ABS Lymphocytes 0.5 10^3/ul (1.0-4.8); ABS Monocytes 0.3 10^3/ul (0-0.8); Hematocrit 47 % (42-52); Hemoglobin 15.7 g/dL (14.0-18.0); Lymphocyte % 7.2 %; Mean Corpuscular HGB Conc 33 g/dL (31-36); Mean Corpuscular Hemoglobin 30 pg (27-31); Mean Corpuscular Volume 90 fL (80-94); Mean Platelet Volume 8.6 fL (7.4-10.4); Nucleated Red Blood Cells % 0.1; Platelet Count 215 10^3/uL (150-450); Red Blood Count 5.23 10^6 /uL (4.18-5.48); Red Cell Distribution Width 14 % (10-15); White Blood Count 6.8 10^3/uL (3.5-10.8)
[2021-06-15 06:55] LABS: INR 1.07 (0.86-1.15)
[2021-06-15 07:07] LABS: Albumin/Globulin Ratio 1.7 (1-3); Calcium 9.1 mg/dL (8.6-10.3); Globulin 2.4 g/dL (2-4); Potassium 4.9 mmol/L (3.5-5.0); Total Bilirubin 0.6 mg/dL (0.2-1.0); Total Protein 6.4 g/dL (6.4-8.9); eGFR CKD-EPI 101.2 (>60)
[2021-06-15] MEDS: Tiotropium Brom/Olodaterol MDI INH SCH (07:37)
[2021-06-15] MEDS: Albuterol/Ipratropium NEB.SOL (2.5/0.5 MG) 3 ML NEB.SOLN INH SCH ×4 (07:37→19:09)
[2021-06-15] MEDS: DOXYcycline 100 MG in NS 0.9% 250 ml 250 ML IVPB SCH ×2 (08:43→20:40)
[2021-06-15] MEDS: Enoxaparin 40 MG/0.4 ML SYR SUBCUT SCH (12:36)
[2021-06-15] MEDS ORDERED: Albuterol 2.5mg/3 ml (0.083%) NEB.SOLN INH PRN (16:03)
[2021-06-15] MEDS: Calcium Carb (TUMS) 500 mg CHEW TAB PO PRN (23:50)
[2021-06-16] MEDS: methylPREDNISolone SOD SUCC 125 mg 2 ML VIAL IV SCH ×3 (03:37→21:32)
[2021-06-16] MEDS: Albuterol HFA INHALER 8 gm MDI INH PRN ×2 (05:34→22:43)
[2021-06-16] MEDS: Albuterol/Ipratropium NEB.SOL (2.5/0.5 MG) 3 ML NEB.SOLN INH SCH ×4 (05:58→19:34)
[2021-06-16] MEDS: Tiotropium Brom/Olodaterol MDI INH SCH (07:32)
[2021-06-16] MEDS: DOXYcycline 100 MG in NS 0.9% 250 ml 250 ML IVPB SCH ×2 (08:54→21:33)
[2021-06-16 09:01] LABS: INR 1.04 (0.86-1.15)
[2021-06-16 09:07] LABS: Albumin 4.1 g/dL (3.2-5.2); Albumin/Globulin Ratio 1.6 (1-3); Calcium 9.1 mg/dL (8.6-10.3); Globulin 2.5 g/dL (2-4); Potassium 4.3 mmol/L (3.5-5.0); Total Bilirubin 0.5 mg/dL (0.2-1.0); Total Protein 6.6 g/dL (6.4-8.9); eGFR CKD-EPI 101.2 (>60)
[2021-06-16] MEDS: Enoxaparin 40 MG/0.4 ML SYR SUBCUT SCH (13:30)
[2021-06-16] MEDS: Remdesivir 100 mg Vial 100 MG in NS 0.9% 250 ml 230 ML IV SCH (22:42)
[2021-06-16] MEDS: Calcium Carb (TUMS) 500 mg CHEW TAB PO PRN (22:44)
[2021-06-17] MEDS: methylPREDNISolone SOD SUCC 125 mg 2 ML VIAL IV SCH ×2 (04:45→17:59)
[2021-06-17 06:37] LABS: INR 1.08 (0.86-1.15)
[2021-06-17 06:42] LABS: Albumin 3.8 g/dL (3.2-5.2); Albumin/Globulin Ratio 1.8 (1-3); Calcium 9.1 mg/dL (8.6-10.3); Globulin 2.1 g/dL (2-4); Potassium 4.5 mmol/L (3.5-5.0); Total Bilirubin 0.5 mg/dL (0.2-1.0); Total Protein 5.9 g/dL (6.4-8.9); eGFR CKD-EPI 101.2 (>60)
[2021-06-17] MEDS: Albuterol/Ipratropium NEB.SOL (2.5/0.5 MG) 3 ML NEB.SOLN INH SCH ×4 (07:19→19:58)
[2021-06-17] MEDS: Tiotropium Brom/Olodaterol MDI INH SCH (07:20)
[2021-06-17] MEDS: DOXYcycline 100 MG in NS 0.9% 250 ml 250 ML IVPB SCH (07:44)
[2021-06-17] MEDS: Enoxaparin 40 MG/0.4 ML SYR SUBCUT SCH (13:59)
[2021-06-17] MEDS: Calcium Carb (TUMS) 500 mg CHEW TAB PO PRN (21:07)
[2021-06-17] MEDS: Remdesivir 100 mg Vial 100 MG in NS 0.9% 250 ml 230 ML IV SCH (21:08)
[2021-06-17] MEDS: Albuterol HFA INHALER 8 gm MDI INH PRN (21:16)
[2021-06-18 05:08] LABS: INR 1.11 (0.86-1.15)
[2021-06-18 05:16] LABS: ALT 42 U/L (7-52); AST 18 U/L (13-39); Albumin 3.6 g/dL (3.2-5.2); Albumin/Globulin Ratio 1.8 (1-3); Alkaline Phosphatase 40 U/L (35-149); Anion Gap 6 mmol/L (2-11); Blood Urea Nitrogen 21 mg/dL (6-24); CO2 Carbon Dioxide 32 mmol/L (22-32); Chloride 103 mmol/L (101-111); Glucose 141 mg/dL (70-100); Potassium 4.4 mmol/L (3.5-5.0); Sodium 141 mmol/L (135-145); Total Protein 5.6 g/dL (6.4-8.9); eGFR CKD-EPI 101.2 (>60)
[2021-06-18] MEDS: methylPREDNISolone SOD SUCC 125 mg 2 ML VIAL IV SCH ×2 (05:18→16:59)
[2021-06-18] MEDS: Albuterol/Ipratropium NEB.SOL (2.5/0.5 MG) 3 ML NEB.SOLN INH SCH ×5 (07:27→23:31)
[2021-06-18] MEDS: Tiotropium Brom/Olodaterol MDI INH SCH (07:27)
[2021-06-18 11:04] LABS: Vitamin D Total 25(OH) < 7.0 ng/mL (20-50)
[2021-06-18] MEDS: Enoxaparin 40 MG/0.4 ML SYR SUBCUT SCH (14:59)
[2021-06-18] MEDS ORDERED: Albuterol/Ipratropium NEB.SOL (2.5/0.5 MG) 3 ML NEB.SOLN INH SCH (15:00)
[2021-06-18] MEDS ORDERED: Mometasone 110 MCG MDI INH SCH (21:00)
[2021-06-19] MEDS: Albuterol/Ipratropium NEB.SOL (2.5/0.5 MG) 3 ML NEB.SOLN INH SCH ×3 (02:56→11:08)
[2021-06-19] MEDS: methylPREDNISolone SOD SUCC 125 mg 2 ML VIAL IV SCH (04:43)
[2021-06-19] MEDS: Tiotropium Brom/Olodaterol MDI INH SCH (08:01)
[2021-06-19 12:05] VITALS: BP 145/76
[2021-06-19] MEDS ORDERED: methylPREDNISolone SOD SUCC 125 mg 2 ML VIAL IV SCH (13:45)
[2021-06-19] MEDS: Enoxaparin 40 MG/0.4 ML SYR SUBCUT SCH (13:52)
== END 2021-06-19 14:45 | disposition home or self-care (01) | DRG 137 ==
LOC: EDHOLD 10:10 → ED 10:10 → SUATTDRO 13:51 → EDHOLD 16:39 → MED 18:43
PROVIDERS: ADMIT Internal Medicine; ATTEND Internal Medicine

== ENCOUNTER 2024-02-11 06:52 | Observation (INO) ==
[2024-02-11] MEDS ORDERED: Albuterol/Ipratropium NEB.SOL (2.5/0.5 MG) 3 ML NEB.SOLN ONE (06:59)
[2024-02-11] MEDS: Albuterol/Ipratropium NEB.SOL (2.5/0.5 MG) 3 ML NEB.SOLN INH ONE ×2 (07:00)
[2024-02-11 07:37] LABS: ABS Basophils 0.1 10^3/uL (0.0-0.1); ABS Eosinophils 0.2 10^3/uL (0.0-0.5); ABS Monocytes 0.7 10^3/uL (0.0-1.1); ABS Neutrophils 8.4 10^3/uL (1.5-7.6); Eosinophil % 2.3 %; Hematocrit 51.2 % (38-53); Hemoglobin 17.3 g/dL (13.2-16.3); Lymphocyte % 9.6 %; Mean Corpuscular Hemoglobin 31.9 pg (27-33); Mean Corpuscular Hgb Conc 33.8 g/dL (31-36); Mean Corpuscular Volume 94.4 fL (80-97); Mean Platelet Volume 8.6 fL (7.5-11.2); Platelet Count 232 10^3/uL (150-450); Red Blood Count 5.42 10^6/uL (4.06-5.63); Red Cell Distribution Width 13.8 % (12-17); White Blood Count 10.5 10^3/uL (3.6-10.2)
[2024-02-11 07:55] LABS: High Sens Troponin Baseline < 3 pg/mL (<20)
[2024-02-11 08:14] LABS: ALT 22 U/L (7-52); Albumin 4.7 g/dL (3.5-5.7); Alkaline Phosphatase 60 U/L (35-149); Anion Gap 14 mmol/L (2-16); Blood Urea Nitrogen 14 mg/dL (6-24); C Reactive Protein 37.87 mg/L (<8.01); CO2 Carbon Dioxide 19 mmol/L (22-32); Calcium 8.9 mg/dL (8.6-10.3); Chloride 104 mmol/L (101-111); Creatinine, Serum 1.11 mg/dL (0.67-1.17); Globulin 2.4 g/dL (2-4); Glucose 176 mg/dL (70-100); Sodium 137 mmol/L (135-145); Total Bilirubin 0.6 mg/dL (0.2-1.0); Total Protein 7.1 g/dL (6.4-8.9)
[2024-02-11 08:42] LABS: Activated Partial Thrombo Time 30.2 seconds (26.0-38.0); INR 1.16 (0.85-1.14)
[2024-02-11 10:54] LABS: Potassium Redraw 3.5 mmol/L (3.5-5.0)
[2024-02-11] MEDS ORDERED: Albuterol HFA INHALER 8 gm MDI INH PRN (11:41)
[2024-02-11] MEDS ORDERED: FLUTICAS/UMECLI/VILANT 100-62.5-25 MDI (NF) INH SCH (11:45)
[2024-02-11] MEDS: cefTRIAXone 1 gm/50 mL D5W 1 GM/50 ML BAG IV SCH (12:55)
[2024-02-11] MEDS: Enoxaparin 40 MG/0.4 ML SYR SUBCUT SCH (13:01)
[2024-02-11] MEDS: Azithromycin 500 mg/250 ml NS 500 MG/250 ML BAG IVPB SCH (14:10)
[2024-02-11] MEDS: methylPREDNISolone SOD SUCC 40 mg/ml 1 ml VIAL IV SCH (14:10)
[2024-02-11] MEDS: Albuterol/Ipratropium NEB.SOL (2.5/0.5 MG) 3 ML NEB.SOLN INH SCH (15:44)
[2024-02-11 21:26] LABS: Urine Appearance Clear; Urine Bilirubin Negative (Negative); Urine Blood Trace (Negative); Urine Color Yellow; Urine Glucose Negative (Negative); Urine Ketones 1+ (Negative); Urine Nitrite Negative (Negative); Urine Protein Trace (Negative); Urine Specific Gravity 1.028 (1.002-1.030); Urine Urobilinogen Negative (Negative); Urine pH 5.5 (5.0-8.0)
[2024-02-11 21:28] LABS: Urine Bacteria Absent /HPF (Absent); Urine Red Blood Cell Trace(0-2/hpf) /HPF (0-Trace); Urine Squamous Epithelial Cell Present /HPF (Absent); Urine White Blood Cell Trace(0-5/hpf) /HPF (0-Trace)
[2024-02-12 05:28] LABS: ABS Lymphocytes 0.3 10^3/uL (1.0-4.8); ABS Monocytes 0.2 10^3/uL (0.0-1.1); ABS Neutrophils 7.8 10^3/uL (1.5-7.6); Hematocrit 48.6 % (38-53); Hemoglobin 16.5 g/dL (13.2-16.3); Lymphocyte % 3.8 %; Mean Corpuscular Hemoglobin 31.5 pg (27-33); Mean Corpuscular Hgb Conc 33.8 g/dL (31-36); Mean Platelet Volume 8.8 fL (7.5-11.2); Platelet Count 230 10^3/uL (150-450); Red Blood Count 5.23 10^6/uL (4.06-5.63); Red Cell Distribution Width 13.5 % (12-17); White Blood Count 8.4 10^3/uL (3.6-10.2)
[2024-02-12 06:10] LABS: Calcium 9.5 mg/dL (8.6-10.3); Creatinine, Serum 0.86 mg/dL (0.67-1.17); Magnesium 1.9 mg/dL (1.9-2.7); Potassium 4.4 mmol/L (3.5-5.0); eGFR CKD-EPI 100.4 (>60)
[2024-02-12 10:54] LABS: C Reactive Protein 26.33 mg/L (<8.01)
[2024-02-12 12:06] LABS: Influenza A Molecular POSITIVE (Negative)
[2024-02-12] MEDS: Iohexol 350 (CONTRAST) 500 ML MDV IV ONE (12:18)
[2024-02-12] MEDS: Albuterol/Ipratropium NEB.SOL (2.5/0.5 MG) 3 ML NEB.SOLN INH PRN (16:22)
[2024-02-12] MEDS: FLUTICAS/UMECLI/VILANT 200-62.5-25 MDI (NF) INH SCH (19:56)
[2024-02-13 08:16] LABS: ABS Lymphocytes 0.6 10^3/uL (1.0-4.8); ABS Neutrophils 5.8 10^3/uL (1.5-7.6); Eosinophil % 0.1 %; Hematocrit 47.6 % (38-53); Hemoglobin 16.3 g/dL (13.2-16.3); Lymphocyte % 8.3 %; Mean Corpuscular Hgb Conc 34.2 g/dL (31-36); Mean Corpuscular Volume 93.6 fL (80-97); Mean Platelet Volume 8.8 fL (7.5-11.2); Platelet Count 207 10^3/uL (150-450); Red Blood Count 5.09 10^6/uL (4.06-5.63); Red Cell Distribution Width 13.2 % (12-17); White Blood Count 7.4 10^3/uL (3.6-10.2)
[2024-02-13 08:58] LABS: Calcium 8.8 mg/dL (8.6-10.3); Creatinine, Serum 0.88 mg/dL (0.67-1.17); Magnesium 2.1 mg/dL (1.9-2.7); Potassium 4.1 mmol/L (3.5-5.0); eGFR CKD-EPI 99.7 (>60)
[2024-02-13] MEDS: Fluticasone NASAL SPRAY 50MCG 16 gm SPRAY BTL BOTH NARES SCH (16:22)
[2024-02-14 10:14] VITALS: BP 126/80
== END 2024-02-14 13:10 | disposition home or self-care (01) ==
LOC: EDHOLD 06:52 → ED 06:52 → SUATTDRO 11:32 → EDHOLD 16:39 → MED 17:27
PROVIDERS: ADMIT Hospitalist; ATTEND Internal Medicine